=== PATIENT | female | born 1950 | race Caucasian/White ===

== ENCOUNTER 2017-12-15 14:11 | Inpatient (IN) | payer OTHER ==
[~2017-12-15] VITALS: Ht 160 cm; Wt 60.3 kg
--- NOTE | ~2017-12-15 | CON ---
[address] [address] CONSULTATION Name: MICKEY COLLADO Room: [address] IN M.R.#: [id number] Admission: 12/15/17 Attend Phys: Shana Apple MD Discharge: Date of : 52 Report #: [id number] THIS REPORT FOR: //name// CC: Giuliano Apple DATE OF SERVICE: 12/20/2017 ADDENDUM LABORATORY DATA: WBC is 6.6, RBC 5.08, hemoglobin 12.0, hematocrit 37.8, platelets 317. BUN 19, creatinine 0.6, glucose 60. Albumin 2.1. PHYSICAL EXAMINATION: Postoperative wound has increased red granulation with no exposed bone, tendon or joint. The inflammation has nearly resolved with no bucky erythema. She can achieve about -5 degrees right ankle joint extension. She has a large superficial wound to the right anterior ankle with red granulation and stable and healing. No signs of acute vascular embarrassment to either extremity. I did not change the left leg bandage today since I changed it last night and her lesions were dry without inflammation. IMPRESSION: Deep tissue infection, right posterior leg, status post Achilles tendon excision. PLAN: The right leg wounds were cleansed and dressed with Xeroform and covered with ABDs, Kerlix, and Harpal. She was placed in an Aircast boot, weightbearing as tolerated with physical therapy using a walker. The patient to be discharged to [facility] facility, possibly tomorrow. By: 1313 1754Dtrang Zacarias DPM /nt
--- NOTE | ~2017-12-15 | PROC ---
[address] [address] PROCEDURE REPORT Name: MICKEY COLLADO Room: [address] IN M.R.#: [id number] Admission: 12/15/17 Attend Phys: Shana Apple MD Discharge: 12/24/17 Date of : 52 Report #: [id number] THIS REPORT FOR: //name// For GI report, please see the Provation report in Perceptive 7 content. By: 0912Medical Records Staff [place] /CHETNA
--- NOTE | ~2017-12-15 | OP ---
[facility] [address] [place] [address] OPERATIVE REPORT Name: MICKEY COLLADO Room: [address] IN M.R.#: [id number] Admission: 12/15/17 Attend Phys: Shana Apple MD Discharge: Date of : 52 Report #: [id number] THIS REPORT FOR: //name// CC: Giuliano Mcrae DATE OF SERVICE: 12/18/2017 SURGEON: Jv Zacarias DPM. PREOPERATIVE DIAGNOSIS: Deep tissue infection, right posterior leg with infected Achilles tendon. POSTOPERATIVE DIAGNOSIS: Deep tissue infection, right posterior leg with infected Achilles tendon. PROCEDURE: 1. Excision of right Achilles tendon. 2. Incision and drainage, right posterior leg. 3. Wound debridement with irrigation, right leg. ANESTHESIA: General LMA. INJECTABLES: 30 mL of 0.5% bupivacaine plain. HEMOSTASIS: None. SPECIMENS: Right Achilles tendon. CULTURES: Right Achilles tendon, aerobic and anaerobic. ESTIMATED BLOOD LOSS: Roughly 20 mL. COMPLICATIONS: None. DESCRIPTION OF PROCEDURE: The patient was brought to the OR and placed on the table supine with induction of general LMA anesthesia. A local anesthetic block with bupivacaine was given proximal to the surgical site. The extremity was prepped and draped aseptically. The Achilles tendon was then isolated from the underlying soft tissue with Metzenbaum and curved Ana hemostat. An incision was extended distally to calcaneal insertion and proximally to the myotendinous junction. The distal aspect of the Achilles tendon was detached from the calcaneus and the proximal portion attached at the myotendinous junction. A procurement representative portion was sent for aerobic and anaerobic tissue cultures. The remaining tendon was sent for surgical pathology. I debrided the area [address] [address] OPERATIVE REPORT Name: MICKEY COLLADO Room: [address] IN [facility].#: [id number] Admission: 12/15/17 Attend Phys: Shana Apple MD Discharge: Date of : 52 Report #: [id number] thoroughly with a curet, forceps and scissors and used electrocautery for hemostasis. The wound was pulse lavaged with 1.5 liters of sterile saline with 75,000 units of bacitracin. It was dried and the wound was packed with Aquacel Ag. The anterior foot wound was not debrided and it was covered with Xeroform. Both wounds were covered with ABDs, followed by Kerlix and Harpal bandage. The patient left the OR alert and oriented with no complications noted. By: 1040 Carley Zacarias DPM /bella
--- NOTE | ~2017-12-15 | CON ---
[address] [address] CONSULTATION Name: MICKEY COLLADO Room: [address] IN .R.#: [id number] Admission: 12/15/17 Attend Phys: Shana Apple MD Discharge: Date of : 52 Report #: [id number] THIS REPORT FOR: //name// CC: Giuliano Apple DATE OF SERVICE: 12/20/2017 CHIEF COMPLAINT: Status post excision right Achilles tendon for deep tissue infection. SUBJECTIVE: She is doing well, on parenteral vancomycin and ceftriaxone. She has good appetite, stable vitals with no fevers. Surgical culture is growing gram-positive cocci and gram-negative rods. She has low-grade pain to the area, much improved since hospital admission. She had PICC line placed today. ADDENDUM LABORATORY DATA: WBC is 6.6, RBC 5.08, hemoglobin 12.0, hematocrit 37.8, platelets 317. BUN 19, creatinine 0.6, glucose 60. Albumin 2.1. PHYSICAL EXAMINATION: Postoperative wound has increased red granulation with no exposed bone, tendon or joint. The inflammation has nearly resolved with no bucky erythema. She can achieve about -5 degrees right ankle joint extension. She has a large superficial wound to the right anterior ankle with red granulation and stable and healing. No signs of acute vascular embarrassment to either extremity. I did not change the left leg bandage today since I changed it last night and her lesions were dry without inflammation. IMPRESSION: Deep tissue infection, right posterior leg, status post Achilles tendon excision. PLAN: The right leg wounds were cleansed and dressed with Xeroform and covered with ABDs, Kerlix, and Harpal. She was placed in an Aircast boot, weightbearing as tolerated with physical therapy using a walker. The patient to be discharged to custodial facility, possibly tomorrow. By: 1310 1752Dtrang Zacarias DPM /bella
--- NOTE | ~2017-12-15 | CON ---
[address] [address] CONSULTATION Name: MICKEY COLLADO Room: [address] IN M.R.#: [id number] Admission: 12/15/17 Attend Phys: Shana Apple MD Discharge: Date of : 52 Report #: [id number] THIS REPORT FOR: //name// CC: Giuliano Apple DATE OF SERVICE: 12/21/2017 CHIEF COMPLAINT: Status post excision, right Achilles tendon with wound debridement. She is on parenteral vancomycin and ceftriaxone with good tolerance. Surgical tissue cultures grew sensitive Staph aureus and group B streptococcus. She has been afebrile with good appetite, denies chills or malaise. She had physical therapy today. She is able to bear weight on the right foot in an Aircast boot, although she states the boot is uncomfortable at the posterior ankle overlying the surgical site. She had a PICC line placed, likely discharge tomorrow to detention facility. There are no new labs for review. PHYSICAL EXAMINATION: Postoperative site has increased granulation with some pale slough. There is no exposed bone, tendon or joint. There is low grade inflammation with no bucky erythema or cellulitis. No signs of vascular compromise to the extremity. There is no pallor or cyanosis to the wound margins. Negative Homans' or Grant's sign to either extremity. No popliteal adenopathy noted. Both feet are warm to the touch. The left dorsal foot wound is healing over the third MTP joint with no exposed bone, tendon or joint. The remaining left foot and leg wounds have dry scabs without inflammation. IMPRESSION: Status post excision, right Achilles tendon with wound debridement. PLAN: The wounds were cleansed. I debrided the right surgical wound with a curette to remove subcutaneous tissue and slough. Scant bleeding was stopped with pressure. The wound was again cleansed and dressed with Aquacel Ag and covered with ABDs, Kerlix and Harpal wrap. I will write an order to have the patient ambulate in a surgical shoe with walker with physical therapy assistance, if tolerated. I prefer she ambulates in the Aircast boot if pain allows. By: 0751 1618Jv Zacarias DPM /bella
--- NOTE | ~2017-12-15 | CON ---
[address] [address] CONSULTATION Name: MICKEY COLLADO Room: [address] IN .R.#: [id number] Admission: 12/15/17 Attend Phys: Shana Apple MD Discharge: Date of : 52 Report #: [id number] THIS REPORT FOR: //name// CC: Giuliano Apple DATE OF SERVICE: 12/19/2017 CHIEF COMPLAINT: Postoperative day #1 for excision of right Achilles tendon with wound debridement for deep tissue infection. She relates decreased pain, she has good appetite. She has been afebrile with normal vital signs. She is currently nonweightbearing with intact bilateral leg dressings. She is on parenteral vancomycin and ceftriaxone. Surgical cultures showing gram-negative rods and gram-positive cocci in pairs. LABORATORY DATA: WBC 6.9, RBC 4.79, hemoglobin 11.3, hematocrit 35.4, platelets 321, BUN 16, creatinine 0.6, glucose 141, albumin 2.1. PHYSICAL EXAMINATION: Temperature 98.0, pulse 81, respirations 20, blood pressure 105/60. There is a significant decrease in inflammation to both lower extremities, including the right posterior Achilles tendon wound. The posterior leg wound has red granulation with some slough. There is no exposed bone or tendon. The anterior ankle wound has red granulation. The left foot wounds have no inflammation and appear smaller. There is no pallor, cyanosis or signs of acute vascular embarrassment. IMPRESSION: Deep tissue infection, right posterior leg, multiple bilateral lower extremity wounds complicated by type 2 diabetes mellitus with peripheral neuropathy and peripheral artery disease. PLAN: The wounds were cleansed and dried. I placed Xeroform over the right anterior and posterior leg wounds. Foam was placed above that and was wrapped with Kerlix and Harpal wrap. The left foot was dressed with Optifoam over the wounds and Kerlix gauze without an Harpal wrap. I ordered an Aircast boot, which I will fit on the patient tomorrow. Once I feel that the Aircast boot fits appropriately, I will have physical therapy work with her in a weightbearing as tolerated fashion using a walker. By: 1801 0405Jv Zacarias DPM /bella
--- NOTE | ~2017-12-15 | CON ---
[address] [address] CONSULTATION Name: MICKEY COLLADO Room: [address] IN ..#: [id number] Admission: 12/15/17 Attend Phys: Shana Apple MD Discharge: Date of : 52 Report #: [id number] THIS REPORT FOR: //name// CC: Giuliano Whittington DO Shana Apple DATE OF SERVICE: 12/16/2017 REASON FOR CONSULTATION: Bilateral lower extremity ulcerations, complicated by type 2 diabetes mellitus and peripheral arterial disease. HISTORY OF PRESENT ILLNESS: The patient is a 67-year-old female admitted to the hospital yesterday for uncontrolled diabetes and bilateral lower extremity wounds. She states she has not seen a doctor for roughly 40-50 years. She recently saw Dr. Masood Whittington, who referred her for hospital admission. She relates a history of cataract, she states she is legally blind. She was recently diagnosed with type 2 diabetes mellitus and placed on metformin. She relates bilateral lower extremity wounds since 06/2017. She says she scratches and picks them, and they often scab up. She is minimally ambulatory, she ambulates by holding on to a furniture. She receives Meals on Wheels. She relates possible stroke in 09/2014 without formal medical care. She currently relates pain to both legs, particularly the large ulceration of the right posterior ankle. She denies fevers, chills, nausea or malaise. She is on parenteral vancomycin and ceftriaxone with good tolerance. She has had vascular surgery evaluation with recent arterial Doppler and CTA with runoff. The CTA showed widely patent arterial vessels down to the ankles. It is felt that she has adequate arterial perfusion for healing, and no further vascular workup is scheduled at present. She has had carotid Doppler ultrasound and cardio echogram. LABORATORY DATA: WBC 6.8, RBC 5.54, hemoglobin 13.2, hematocrit 41.0, platelets 411. BUN 19, creatinine 0.5, glucose 155. Albumin 2.7. PHYSICAL EXAMINATION: EXTREMITIES: There is a large wound to the right posterior Achilles tendon with exposed tendon. The tendon is desiccated and minimally mobile with limited excursion. The patient has very limited ankle joint dorsiflexion and plantar flexion. There is some granulation to the adjacent sides of the tendon. There is a pale, slough covering the tendon and the adjacent wound. There is a large full-thickness ulceration of the right anterior medial ankle with red granulation and some areas of brown eschar with fibrin necrosis. The granulation is also covered with a layer of pale slough. The left lower extremity has multiple lesions to the leg circumferentially. There is no pallor or cyanosis. Negative popliteal adenopathy. No Homans' or Grant sign to either extremity. Toenails are severely dystrophic without [place] [address] CONSULTATION Name: MICKEY COLLADO Room: [address] IN ..#: [id number] Admission: 12/15/17 Attend Phys: Shana Apple MD Discharge: Date of : 51 Report #: [id number] IMPRESSION: 1. Bilateral lower extremity wounds, right worse than left. 2. Full-thickness ulceration, right posterior Achilles tendon with exposed desiccated tendon. 3. Type 2 diabetes mellitus with poor glycemic control, peripheral arterial disease. PLAN: I reviewed Vascular Surgery's notes and all testing. At this point, I recommend formal surgical debridement of the Achilles tendon in the operating room. The tendon may be salvageable with application of biologic agent, such as a dermal graft with possible use of wound vacuum. Other options include excision of the desiccated tendon, as it is minimally functional at this point. I will evaluate the patient tomorrow and see how much additional range of motion she can achieve with the foot and ankle and assess the viability of the tendon. I performed an aerobic swab culture of the right anterior ankle wound. I will follow up with the patient tomorrow. By: 1835 0735Jv Zacarias DPM /bella
--- NOTE | ~2017-12-15 | CON ---
[address] [address] CONSULTATION Name: MICKEY COLLADO Room: [address] IN M.R.#: [id number] Admission: 12/15/17 Attend Phys: Shana Apple MD Discharge: Date of : 52 Report #: [id number] THIS REPORT FOR: //name// CC: Giuliano Mcrae DATE OF SERVICE: 12/17/2017 CHIEF COMPLAINT: Follow up with deep tissue infection to the right posterior leg with infected and necrotic Achilles tendon. The tendon is nonfunctional, and the patient has very minimal movement in dorsiflexion or plantar flexion. She is on parenteral vancomycin and ceftriaxone. Wound cultures are pending. There are no new labs for review. PHYSICAL EXAMINATION: She has a large wound to the right posterior ankle and lower leg, which have exposed Achilles tendon. The tendon is yellow and infected with malodor and is relatively nonfunctional. The patient has very little ankle joint movement either actively or passively. There is low grade inflammation to the periwound margins, somewhat improved. There is a wound to the anterior aspect of the right ankle with red granulation. There is no pallor or cyanosis or signs of acute vascular embarrassment. IMPRESSION: Deep tissue infection, right lower extremity with necrotic Achilles tendon. PLAN: I recommend excision of the Achilles tendon, since it is nonfunctional and severely necrotic and infected. I will perform this tomorrow in the operating room. By: Gregory: 12/18/17 1042 1839Jv Zacarias DPM /bella
[2017-12-15 15:30] VITALS: BP 129/77
[2017-12-15] MEDS ORDERED: POTASSIUM20 PO (16:08)
[2017-12-15] MEDS ORDERED: METFORMIN HCL500 MG PO (16:08)
[2017-12-15] MEDS ORDERED: FISH OIL 1,001000 M2 PO (16:09)
[2017-12-15 18:15] LABS: HEMATOCRIT 41.5 % (37.0-47.0); HEMOGLOBIN 13.2 gm/dL (12.0-15.0); MCH 23.8 pg (26.0-34.0); MCHC 31.9 g/dL (28.0-37.0); MCV 74.8 fL (80.0-100.0); RBC 5.55 mil/uL (4.20-5.00); RDW-CV 15.6 % (10.5-14.5); WBC 12.3 thou/uL (4.0-11.0)
[2017-12-15 18:37] LABS: ALBUMIN 2.7 g/dL (3.4-5.0); CALCIUM 9.2 mg/dL (8.5-10.1); CREATININE 0.7 mg/dL (0.6-1.3); POTASSIUM 4.6 mmol/L (3.5-5.1); TOTAL BILIRUBIN 0.3 mg/dL (<0.1-1.0); TOTAL PROTEIN 7.9 g/dL (6.4-8.2)
--- NOTE | 2017-12-15 18:53 | NUR ---
ASSUMED CARE OF PT @ 1530.PT IS A/O X4,VSS,TRACING ST ON THE MONITOR.PT STATES LAST BM WAS TODAY.IV INSERTED IN RIGHT AC, PATENT AND SALINE LOCKED.IV ANTIBIOTICS GIVEN.PICTURES TAKEN OF WOUNDS ON LOWER EXTREMITIES.PT IS CALM AND COOPERATIVE WITH NO C/O PAIN AT TIME OF ASSESSMENT.PT IS UP WITH ONE ASSIST TO THE CHAIR OR BSC.PT LEFT RESTING IN BED WITH CALL LIGHT AND FALL PRECAUTIONS IN PLACE. WILL CONTINUE TO MONITOR.HOURLY ROUNDING COMPLETED FOR PT SAFETY.
[2017-12-15 20:29] VITALS: BP 125/85
[2017-12-16] VITALS: BP 140/76
[2017-12-16 04:00] VITALS: BP 158/77
[2017-12-16 04:51] LABS: HEMOGLOBIN 13.2 gm/dL (12.0-15.0); MCH 23.8 pg (26.0-34.0); MCHC 32.1 g/dL (28.0-37.0); MPV 6.8 fl. (7.2-11.1); RBC 5.54 mil/uL (4.20-5.00); RDW-CV 15.4 % (10.5-14.5); WBC 6.8 thou/uL (4.0-11.0)
[2017-12-16 05:17] LABS: CALCIUM 9.3 mg/dL (8.5-10.1); CREATININE 0.5 mg/dL (0.6-1.3); MAGNESIUM 2.1 mg/dL (1.8-2.4); POTASSIUM 4.1 mmol/L (3.5-5.1)
--- NOTE | 2017-12-16 06:55 | NUR ---
PT IS ABLE TO COMMUNICATE HER NEEDS TO STAFF WITH MINOR DIFFICULTY; SHE IS PARTIALLY BLIND. SHE HAS DENIED THE NEED FOR PAIN MEDICATION UP TO THIS TIME. SHE IS TENTATIVELY SCHEDULED TO HAVE A CARDIAC ECHO AND AN ULTRASOUND OF HER LOWER EXTREMITIES LATER TODAY. ITINERANT TEACHER ASSISTANT CONSULTED.
[2017-12-16 08:05] VITALS: BP 107/75
--- NOTE | 2017-12-16 10:34 | NUR ---
RECIEVED REPORT FROM [facility] AND ASSUMED CARE OF PT @ 8231.PT IS A/OX4,VSS,TRACING SR ON THE MONITOR.LUNG SOUNDS ARE CLEAR. LAST BM WAS YESTERDAY.IV PATENT AND SALINE LOCKED.PT IS CALM AND COOPERATIVE WITH NO C/O PAIN AT TIME OF ASSESSMENT.PT IS UP WITH ONE ASSIST TO THE BSC.PT LEFT RESTING IN BED WITH CALL LIGHT AND FALL PRECAUTIONS IN PLACE. WILL CONTINUE TO MONITOR. ECHO AND US COMPLETED THIS AM.
--- NOTE | 2017-12-16 13:01 | NUR ---
WOUND NURSE: PATIENT SEEN TO ADDRESS OPEN LESIONS ON BLE AND LEFT FOOT. LARGE OBLONG LESION ON THE RIGHT MID TIBIAL ASPECT MEASURES 10.5 X 6.0 X 0.2 CM. PRESENTS A SHALLOW LESION CONTAINING PINKISH RED GRANULATION TISSUE AND MODERATE AMOUNT OF SEROUSANGUINOUS DRAINAGE. RIGHT ACHILLES WOUND MEASURES 8.5 X 4.0 X 1.8 CM AND PRESENTS WITH MUSHY PINK NONGRANULATING TISSUE ALONG WITH BLACKENING ALONG THE OUTER SURFACE OF THE EXPOSED ACHILLLES TENDON. THERE IS A MODERATE AMOUNT OF YELLOW DRAINAGE FROM THIS SITE. THERE ARE ALSO A FEW SMALL DRY INTACT SCABS ON THE RLE ALSO. WOUNDS WERE CLEANSED WITH SOAP AND WATER, RINSED WITH WATER, THEN PATTED DRY. APPLIED AQUACEL AG UNDER ABD, THEN WRAPPED WITH KERLEX GAUZE, THEN SECURED WITH TAPE AND LOOSE FITTING SIZE F TUBIGRIP. PATIENT ALSO WITH 3 LESIONS ON THE LEFT FOOT: DISTAL-MEDIAL, DORSAL SURFACE : 2.0 X 1.0 X 0.2 CM; 2ND WOUND OPENING PROXIMAL TO THIS: 2.0 X 1.8 X 0.1 CM. DISTAL LATERAL ASPECT; PRESENTS WITH LIGHT BROWNISH CRUSTS IN THE WOUND BED AND SMALL AMOUNTS OF LIGHT BROWNISH DRAINAGE. PROXIMAL TO 4TH DIGIT: 1.5 X 1.5 X 0.8 CM. PRESENTS WITH PINKISH RED, MUSHY TISSUE IN THE WOUND BED AND EXPOSED TENDON. CLUSTERED WOUNDS ON THE LLE BELOW THE KNEE AND ABOVE THE ANKLE AND MEASURED 25 X 11 CM AND CONTAINED SEVERAL SMALL SHALLOW LESIONS CONTAINING BROWNISH SCABS. OPEN WOUNDS WERE TREATED WITH AQUACEL AG UNDER ABD, XEROFORM GAUZE UNDER ABD APPLIED TO THE REMAINING LESIONS. THEN WRAPPED WITH KERLEX AND SECURED WITH TAPE. APPLIED SIZE F TUBIGRIP TO HELP SECURE DRESSING. PER RADHA INSPECTOR WREATH WITH [facility], PATIENT ALSO HAS CONSULT WITH ORTHO AND PODIATRY. PATIENT WAS INSTRUCTED ON MEASURES TO PROMOTE HEALING AND PREVENT FURTHER COMPLICATIONS AND REINFORCEMENTS WILL BE NEEDED. PATIENT HAS ORDERS FOR WOUND CARE.
--- NOTE | 2017-12-16 14:28 | NUR ---
Nutrition: Pt is seen for wounds. Wounds on bilat legs, wrapped up. Pt stated she is legally blind, but she can feed herself. She has a good appetite currently. Wt: 133#. CHO controlled. diet. Has DM. BG 123, alb 2.7, prealb 19. Pt stated she was trying to get her BG down below 140 after lunch. No nutrition concerns at this time. Mild risk. Recommend MVI to aid in wound healing.
--- NOTE | 2017-12-16 15:02 | 2DMMODE ---
[place] [address] 2 D/M-MODE ECHOCARDIOGRAM Name: MICKEY COLLADO Room: [address] IN [facility]#: [id number] Admission: 12/15/17 Attend Phys: Shana Apple, Discharge: Date of : 52 Date of Service: 12/16/17 1502 Report #: [id number] THIS REPORT FOR: //name// APPROVED REPORT Study performed: 12/16/2017 09:22:49 EXAM: Comprehensive 2D, Doppler, and color-flow Echocardiogram Patient Location: In-Patient Room #: [facility] Status: routine BSA: 1.63 HR: 100 bpm BP: 107/75 mmHg Rhythm: NSR Other Information Study Quality: Good Indications Congestive Heart Failure 2D Dimensions IVSd: 15.47 (7-11mm) LVOT Diam: 19.32 (18-24mm) LVDd: 32.82 mm PWd: 12.12 (7-11mm) Ascending Ao: 34.48 (22-36mm) LVDs: 19.63 (25-40mm) Aortic Root: 34.88 mm Volumes Left Atrial Volume (Systole) LA ESV Index: 28.50 mL/m2 Aortic Valve AoV Peak Nathen.: 1.58 m/s AO Peak Gr.: 10.02 mmHg LVOT Max P.88 mmHg AO Mean Gr.: 5.88 mmHg LVOT Mean P.50 mmHg LVOT Max V: 1.21 m/s AO V2 VTI: 25.35 cm LVOT Mean V: 0.71 m/s WLAT (VTI): 2.15 cm2 LVOT V1 VTI: 18.56 cm Mitral Valve E/A Ratio: 0.55 MV Decel. Time: 219.46 ms MV E Max Nathen.: 0.65 m/[place] [address] 2 D/M-MODE ECHOCARDIOGRAM Name: MICKEY COLLADO Room: [address] IN .R.#: [id number] Admission: 12/15/17 Attend Phys: Shana Apple, Discharge: Date of : 52 Date of Service: 12/16/17 1502 Report #: [id number] MV PHT: 63.64 ms MVA (PHT): 3.46 cm2 TDI E/Lateral E': 8.13 E/Medial E': 8.13 Medial E' Nathen.: 0.08 m/s Lateral E' Nathen.: 0.08 m/s Pulmonary Valve PV Peak Nathen.: 0.94 m/s PV Peak Gr.: 3.54 mmHg Left Ventricle The left ventricle is normal size. There is normal LV segmental wall motion. Mild concentric left ventricular hypertrophy. Left ventricular systolic function is normal. LVEF is >70%. Grade I - abnormal relaxation pattern. Right Ventricle The right ventricle is normal size. The right ventricular systolic function is normal. Atria The left atrium size is normal. The right atrium size is normal. Aortic Valve Mild aortic valve sclerosis. Trace aortic regurgitation. There is no aortic valvular stenosis. Mitral Valve There is mitral annular calcification. There is no mitral valve regurgitation noted. No evidence of mitral valve stenosis. Tricuspid Valve The tricuspid valve is normal in structure. Unable to assess PA pressure. Trace tricuspid regurgitation. Pulmonic Valve The pulmonary valve is normal in structure. There is no pulmonic valvular regurgitation. Great Vessels The aortic root is normal in size. IVC is normal in size and collapses >50% with [place] [address] 2 D/M-MODE ECHOCARDIOGRAM Name: MICKEY COLLADO Room: [address] IN [facility]#: [id number] Admission: 12/15/17 Attend Phys: Shana Apple, Discharge: Date of : 52 Date of Service: 12/16/17 1502 Report #: [id number] There is no pericardial effusion. <Conclusion> The left ventricle is normal size. Mild concentric left ventricular hypertrophy. Left ventricular systolic function is normal. LVEF is >70%. Grade I - abnormal relaxation pattern. Mild aortic valve sclerosis. Trace aortic regurgitation. IVC is normal in size and collapses >50% with inspiration. <ELECTRONICALLY SIGNED> By: Rod Ta MD, FACC 12/16/17 150 01 01 Rod Ta MD, FACC /INF
--- NOTE | 2017-12-16 16:00 | NUR ---
Pt is A&O. Resides at home alone. Pt is legally blind, and states that d/t this she is limited at home. Pt states that she is unable to cook, so she eats sandwiches and has Meals on Wheels delivered. Pt stated that she is able to machine operator picker her home. Friends within her apartment complex provide transportation to run errands and to appointments. Pt has a cane that she uses for mobility. Pt stated that [facility] her to get her [place] YEHU[place], so that she can get inhome services. CM to fax facesheet to Carmen at [facility], to check YEHUDA status v. iniciate a [place] YEHUDA roscoe. No hx of HH or SNF. Discussed disposition with Pt, she will think about SNF v. LTAC over the weekend, CM to f/u on Tuesday. CM received a call from Elzbieta Avila with [facility] p: [phone], c:[phone], [facility] to follow Pt through disposition. Worker to come out and visit early next week. Following
[2017-12-16 16:32] VITALS: BP 111/73
--- NOTE | 2017-12-16 18:08 | NUR ---
VSS,CARDIAC MONITORING IN PLACE WITH NO CHANGES.PT REMAINS ON ROOM AIR.WOUND CARE SAW PT AND WRAPPED BILATERAL LOWER EXTREMITIES.CTA COMPLETED.ECHO COMPLETED.VENOUS DOPPLER US COMPLETED.US OF CAROTIDS COMPLETED. NO C/O PAIN.IV ANTIBIOTICS GIVEN.PT INFORMED OF PLAN OF CARE AND COMMUNICATES UNDERSTANDING.PT WORKED MINIMALLY WITH PT AND OT.HOURLY ROUNDING COMPLETED FOR PT SAFETY.CALL LIGHT AND FALL PRECAUTIONS IN PLACE.WILL CONTINUE TO MONITOR FOR DURATION OF SHIFT.
[2017-12-16 20:00] VITALS: BP 101/56
[2017-12-16 23:10] LABS: GLYCOHEMOGLOBIN (HGB A1C) 10.5 % (4.8-5.6)
[2017-12-17] VITALS: BP 112/54
[2017-12-17 04:00] VITALS: BP 128/59
--- NOTE | 2017-12-17 04:30 | NUR ---
ASSUMED PT CARE AT 1930. ASSESSMENT COMPLETED CHARTED. ABLE TO MAKE NEEDS KNOWN. PT RESTING IN BED ALL NIGHT. C/O PAIN IN HER LEGS BUT IS REFUSING MEDICATION TO HELP. EXPLAINED TO PT THAT THE DEBRIDEMENT IS WHAT IS CAUSING THE INCREASED PAIN. WILL CONTINUE TO MONITOR.
[2017-12-17 07:40] VITALS: BP 113/69
--- NOTE | 2017-12-17 10:29 | NUR ---
RECEIVED REPORT FROM RONEN AND ASSUMED CARE OF PT @ 2377.PT IS A/O X4,VSS,TRACING SR ON THE MONITOR.LUNG SOUNDS ARE CLEAR.LAST BM WAS YESTERDAY.IV PATENT AND SALINE LOCKED.PT IS CALM AND COOPERATIVE WITH C/O PAIN IN BILATERAL LEGS BUT REFUSES PAIN MEDICATIONS.PT IS UP WITH ONE ASSIST TO BSC.PT LEFT RESTING IN BED WITH CALL LIGHT AND FALL PRECAUTIONS IN PLACE. WILL CONTINUE TO MONITOR.
[2017-12-17 12:13] VITALS: BP 129/73
[2017-12-17 16:00] VITALS: BP 113/62
--- NOTE | 2017-12-17 16:51 | NUR ---
VSS,CARDIAC MONITORING IN PLACE WITH NO CHANGES.PT PLANNED TO HAVE SURGERY TOMORROW FOR REMOVAL OF ACHILLES TENDON.CONSENT ON THE CHART BUT NOT SIGNED.HOLD LOVENOX.XRAY OF FOOT AND ANKLE COMPLETED.PT REFUSES PAIN MEDICATION FOR PAIN.IV PATENT AND SALINE LOCKED.IV ANTIBIOTICS GIVEN.PT TO BE NPO AT MIDNIGHT FOR PROCEDURE.PT INFORMED OF PLAN OF CARE AND COMMUNICATES UNDERSTANDING.HOURLY ROUNDING COMPLETED FOR PT SAFETY.CALL LIGHT AND FALL PRECAUTIONS IN PLACE.WILL CONTINUE TO MONITOR FOR DURATION OF SHIFT.
[2017-12-17 20:00] VITALS: BP 111/67
[2017-12-18] VITALS: BP 113/52
--- NOTE | 2017-12-18 03:35 | NUR ---
ASSUMED PT CARE AT 1930. ASSESSMENT COMPLETED CHARTED. PT NPO AT MIDNIGHT FOR SURGERY ON RIGHT ANKLE AND ACHILLIES TENDON. C/O LEG PAIN YET REFUSES PAIN MEDICATION AT THIS TIME. Q2TURN AND TURNS SELF. PT RESTING IN BED COMFORTABLY AT THIS TIME. VSS. WILL CONTINUE TO MONITOR.
[2017-12-18 03:59] VITALS: BP 154/85
[2017-12-18 08:00] VITALS: BP 150/78
[2017-12-18 11:45] VITALS: BP 107/60
[2017-12-18 16:00] VITALS: BP 94/52
--- NOTE | 2017-12-18 18:33 | NUR ---
PATIENT RTESTING IN BED. POST RIGHT ANKLE AND ACHILLIES DEBRIDEMENT TODAY WITH POST OP DRESSING IN PLACE. RIGHT LEG ELEVATED ON PILLOW. VITAL SIGNS STABLE AND PATIENT IN NO APPARENT SIGNS OF DISTRESS. HOURYROUNDING COMPLETD FOR PATIWENT SAFETY.
[2017-12-18 20:00] VITALS: BP 111/54
[2017-12-19 00:27] VITALS: BP 143/90
[2017-12-19 04:00] VITALS: BP 134/76
--- NOTE | 2017-12-19 04:49 | NUR ---
ASSUMED PT CARE AT 193. NURSING ASSESSMENT COMPLETED AT START OF SHIFT. PT C/O PAIN /10 AT START OF SHIFT BUT STATED SHE DID NOT WANT ANTYTHING FOR PAIN. AT 249, PT REQUESTED PAIN MEDICATION FOR BILATERAL LOWER EXTREMITY PAIN. DR. CRUZ NOTIFIED, NEW ORDERS RECEIVED. TORADOL IV ADMINSTERED, PT VOICED INNEFECTIVE, BUT REFUSED ALTERNATIVE PAIN MEDICATIONS. PT EDUCATED, VOICED UNDERSTANDING. PT TRACING SINUS RHYTHM, HOURLY ROUNDING COMPLETED, HIGH FALL PRECAUTIONS IN PLACE. CALL LIGHT WITHIN REACH.
[2017-12-19 08:00] VITALS: BP 127/69
[2017-12-19 11:57] VITALS: BP 109/53
--- NOTE | 2017-12-19 13:59 | NUR ---
CONTINUE TO FOLLOW, MET WITH PT TO DISCUSS DC PLAN. SHE IS AGREEABLE TO SNF AND WANTS TO STAY CLOSE TO HER HOME IN [place]. DISCUSSED OPTIONS IN HER INSURANCE NETWORK AND SHE CHOSE [facility]. CALLED AND FAXED REFERRAL TO [facility]. ALSO TALKED TO PT ABOUT A DPOA, GAVE INFO AND ED. SHE WILL CONSIDER, STATES ALL OF HER FAMILY LIVE OUT OF STATE. WILL FOLLOW
[2017-12-19 15:34] VITALS: BP 105/60
--- NOTE | 2017-12-19 15:45 | NUR ---
WOUND NURSE: PATIENT WAS SEEN BY THIS NURSE LAST WEEK AND WOUND CARE INSTRUCTION PROVIDED. DR. ROMERO PROVIDED SURGICAL DEBRIDEMENT YESTERDAY ON 12/18. ORDERS READ FOR REINFORCEMENT OF DRESSING APPIED BY HIM ONLY. STAFF NURSE CARING FOR PATIENT AWARE.
[2017-12-19 18:30] VITALS: BP 113/62
--- NOTE | 2017-12-19 18:44 | NUR ---
PATIENT TRANSFERRED TO ROOM 316. REPORT CALLED TO 3W NURSE. PATINET BELONGINGS GATHERED AND TAKEN WITH SEVERINO. LOWER EXTREMETY WOUNDS PHOTOGRAPHED AND DRESSINGS CHANGED WITH DR ROMERO. HE HAS ORDERED BOOT FOR RIGHT FOOT THAT HE WILL APPLY TOMORROW WHEN HE PERFORMS ROUNDS ON PATIENT. PATIENT TO BE NON-WEIGHT BEARING UNTIL DR ROMERO APPLIES BOOT TP RIGHT FOOT. HOURLY ROUNDING COMPLETED FOR PATIENT SAFETY.
--- NOTE | 2017-12-19 18:54 | NUR ---
PATIENT TO ROOM 316 THIS EVENING, DSGS C/D/I TO BILAT LE, IV VANC INFUSING VIA L WRIST W/O S/S ADR, A/O X 4, DENIES DISCOMFORT AT THIS TIME, ORIENTED TO ROOM BSC PLACED FOR TOILETING, VSS, NO DISTRESS NOTED.
[2017-12-20 04:00] VITALS: BP 125/104
[2017-12-20 05:00] VITALS: BP 132/68
[2017-12-20 05:34] LABS: HEMATOCRIT 37.8 % (37.0-47.0); MCH 23.6 pg (26.0-34.0); MCHC 31.6 g/dL (28.0-37.0); MCV 74.6 fL (80.0-100.0); MPV 7.2 fl. (7.2-11.1); RBC 5.08 mil/uL (4.20-5.00); RDW-CV 15.6 % (10.5-14.5); WBC 6.6 thou/uL (4.0-11.0)
[2017-12-20 05:59] LABS: ALBUMIN 2.1 g/dL (3.4-5.0); CALCIUM 8.5 mg/dL (8.5-10.1); CREATININE 0.6 mg/dL (0.6-1.3); MAGNESIUM 1.9 mg/dL (1.8-2.4); POTASSIUM 4.1 mmol/L (3.5-5.1); TOTAL BILIRUBIN 0.2 mg/dL (<0.1-1.0); TOTAL PROTEIN 6.3 g/dL (6.4-8.2)
--- NOTE | 2017-12-20 06:55 | NUR ---
PT SLEPT WELL MOST OF THE SHIFT. UP WITH ASSIST TO BSC TO VOID, NWB RLE. DRSG CDI BLE-AWAITING BOOT FROM CS FOR RLE. AM LAB DRAWN. PULLED IV OUT LAST NIGHT AND UNABLE TO RESTART. PT MAY NEED LINE FOR OUTPT IV ABX ON DISCHARGE. ABLE TO USE CALL LITE AND MAKE NEEDS KNOWN. BED ALARM ON FOR SAFETY.
--- NOTE | 2017-12-20 07:36 | CON ---
[address] [address] CONSULTATION Name: MICKEY COLLADO Room: [address] IN .R.#: [id number] Admission: 12/15/17 Attend Phys: Shana Apple MD Discharge: Date of : 52 Report #: [id number] THIS REPORT FOR: //name// CC: Giuliano Apple DATE OF SERVICE: 12/19/2017 INFECTIOUS DISEASE CONSULTATION ATTENDING PHYSICIAN: Dr. Apple. REASON FOR EVALUATION: Suspected deep infection involving the right foot/heel, post debridement. HISTORY OF PRESENT ILLNESS: Chart reviewed, patient examined. This is a 67-year-old who apparently was recently diagnosed with diabetes mellitus, although in all likelihood given parameters going on for an extended period of time, was evaluated for possible cataract surgery and underwent some screening and she was found to have abnormal hyperglycemia, also was noted to have bilateral lower extremity wounds. She denies significant peripheral neuropathy. Apparently, had a posterior right heel wound that was debrided. Gram stain of the specimen has polymicrobial evidence. Cultures are pending. Empirically started on antimicrobial therapy with vancomycin and ceftriaxone. She is not overtly toxic. She notes she has had significant weight loss, although she states her appetite is good. Denies any significant pulmonary or gastrointestinal related complaints. ALLERGIES: PENICILLIN, SULFA. CURRENT MEDICATIONS: Include hydrocodone, fentanyl, enoxaparin, vancomycin, insulin, ceftriaxone, fish oil, metformin, pantoprazole. PAST MEDICAL HISTORY: Diabetes mellitus, cataracts. SOCIAL HISTORY: Nonsmoker, no ethanol. FAMILY HISTORY: Noncontributory. REVIEW OF SYSTEMS: As above. PHYSICAL EXAMINATION: GENERAL: She is pleasant, alert. She has got apparent involuntary movements, primarily of the upper and lower extremity on the left. She attributes to previous stroke. Appears chronically ill, undernourished. VITAL SIGNS: Temperature 97.8, pulse 99, respirations 16, [place] [address] CONSULTATION Name: MICKEY COLLADO Room: [address]#: [id number] Admission: 12/15/17 Attend Phys: Shana Apple MD Discharge: Date of : 52 Report #: [id number] 127/69. SKIN: Warm, dry, no rashes. HEENT: She has poor dentition. NECK: Supple. LUNGS: Diminished breath sounds. HEART: Regular. Borderline tachycardic. I do not appreciate any murmur. ABDOMEN: Soft, nontender, nondistended. There are no peritoneal signs. GENITOURINARY: Deferred. RECTALL: Deferred. EXTREMITIES: Has bilateral lower extremity dressings including compression from the operative site in the distal right lower extremity. LABORATORY DATA: Prealbumin is 16.6. Electrolytes: Sodium 135, potassium 3.8, chloride 101, bicarbonate is 29, BUN and creatinine 16 and 0.6, anion gap of 5. LFTs unremarkable. Albumin of 2.1, total protein of 6.1, estimated GFR of 100. CBC: White count 6.9, H and H and 11.3 and 35.4 and platelets of 321. Operative culture from the right Achilles tendon had no white cells, many Gram-negative rods, many Gram-positive cocci in pairs. The ankle was otherwise unremarkable. Gram stain, cultures to follow. Review of operative port, does have a deep tissue infection involving the right posterior leg and infected Achilles tendon, excision of the right Achilles tendon with drainage and wound debridement. ASSESSMENT: Deep right distal lower extremity infection. We will continue empiric therapy. Await those results. Discussed with Dr. Zacarias whether she will need additional debridement. It is not clear to me. Continue wound care as prescribed. Try to optimize her nutritional status, blood sugar control. Certainly given her overall apparent lack of attention to her health, I think this initially will give an uphill struggle. <ELECTRONICALLY SIGNED> By: Jas Coles MD 12/20/17 0736 [id number] [id number] Coles MD /nt
[2017-12-20 08:00] VITALS: BP 148/65; BP 150/65
--- NOTE | 2017-12-20 13:45 | NUR ---
CONSULTED TO PLACE PICC FOR PT NEEDING BUFFET RUNNER ATB. CONSENT AND ORDER NOTED. SPOKE WITH PT REGUARDING RISK AND BENEFIT. VOICED UNDERSTANDING AND AGREED. TIME OUT WITH WESLEY RN. RIGHT UPPER ARMA SSESSED AND RIGHT UPPER BASILIC IDENTIFIED AND NOTED TO BE WIDLEY PATENT. SINGLE LUMAN POWER PICC PLACED WITH OUT DIFFICULTY PER HOSPITAL POLICY. LINE TRIMMED AT 38CM AND ADVANCED 36CM LEAVING 2CM EXTERNAL. TIP CONFIMED WITH SHERLOCK 3CG. LINE SECURED AND RELEASED FOR USE. PRIMARY NURSING AWARE.
[2017-12-20 16:00] VITALS: BP 120/60; BP 127/61
--- NOTE | 2017-12-20 16:22 | NUR ---
SPOKE WITH [facility]. INFORMED HER OF PT.POSSIBLY NEEDING TO COME THERE ON IVAB ALSO. FAXED HER UPDATED PT/OT NOTES FROM 12/19, PROGRESS NOTES FROM AND ,WOUND NURSE NOTE AND PICC LINE NOTE. NO DETERMINATION YET FOR IVAB.
--- NOTE | 2017-12-20 20:17 | NUR ---
GEO PICC LINE PLACEMENT TO HANNAH, IV ABT INFUSING W/O S/S ADR. WOUNDS REDRESSED AND ASSESSED BY DR. ROMERO AT BEDSIDE, GEO WELL. BLOOD GLUCOSE CONT TO B LOW SIDE OF NORMAL, NO INSULIN GIVEN THIS SHIFT. CAM BOOT TO BEDSIDE, APPROVED BY DR. ROMERO, THERAPIES CONSULTED FOR EVAL/TREAT. ANTICIPATE LTAC TRANSFER DUE TO EXTENSIVENESS OF WOUNDS, LIMITED MOBILITY, BLINDNESS, ADL DEPENDENCY OF PATIENT, UNABLE TO BE ALONE AT THIS TIME. CONT POC.
[2017-12-21] VITALS: BP 135/74
--- NOTE | 2017-12-21 07:11 | NUR ---
HS ACCUCHECK 42, SNACK GIVEN. PT ASYMPTOMATIC WITH LOW BLOOD SUGAR, WILL CONTINUE TO MONITOR. DRSG CDI TO BLE, TOES PINK WARM. HANNAH PICC SL AFTER IV ABX GIVEN. AM LAB DRAWN. UP WITH SBA TO BSC TO VOID, PT STATES SHE CANNOT TOLERATE BOOT BECAUSE IT FEELS TOO TIGHT AND IS PAINFUL. LEGALLY BLIND, ABLE TO USE CALL LITE AND MAKE NEEDS KNOWN.
[2017-12-21 09:33] VITALS: BP 138/81
[2017-12-21 16:07] VITALS: BP 127/88
--- NOTE | 2017-12-21 16:12 | NUR ---
D/C REGISTERED NURSE MIDWIFE CONTACTED SYLWIA WITH [employer] TO DISCUSS MEDICAID PENDING STATUS FOR PATIENT. SYLWIA RETURNS CALL AND INFORMS THAT ' PATIENT DECLINED ASSISTANCE WITH MEDICAID JG AND INFORMS THAT HER FRIEND DIT IT FOR HER'. CM WILL REMAIN AVAILABLE TO ASSIST AND FOLLOW NEEDED.
--- NOTE | 2017-12-21 18:10 | NUR ---
PATIENT HAS BEEN ALERT TODAY. NO COMPLAINTS OF ANY KIND TODAY. BLOOD SUGAR MEDICATIONS CHANGED TODAY TO TRY AND REGULATE BETTER. VITAL SIGNS HAVE BEEN STABLE ON ROOM AIR. PICC LINE IN UPPER RIGHT ARM WORKS WELL FOR ANTIBIOTICS. CALL LIGHT IS IN REACH, WILL CONTINUE TO MONITOR.
[2017-12-22 00:05] VITALS: BP 178/82
--- NOTE | 2017-12-22 05:22 | NUR ---
PT SLEPT FAIRLY WELL OVERNIGHT, UP WITH ASSIST TO BSC TO VOID. HANNAH PICC SL, ABX GIVEN ORDERED. DENIES NEED FOR PAIN MED THIS SHIFT. BLE DRSG CDI. HS ACCUCHECK 69, SNACK GIVEN. NO LABS THIS MORNING. TURN Q2 HOURS AND PRN FOR SKIN CARE AND COMFORT. ABLE TO USE CALL LITE AND MAKE NEEDS KNOWN. POSSIBLE DC TO SNF TODAY. TO HAVE WOUND VAC PLACED FOR DISCHARGE. BED ALARM ON FOR SAFETY.
[2017-12-22 10:00] VITALS: BP 133/84
--- NOTE | 2017-12-22 15:20 | NUR ---
HORACIO followed up with [facility] regarding dc plan and after speaking with Dominique in admissions who clarified need for information to provide to insurance; HORACIO discussed with pt nurse and with wound care nurse and Dr Coles. HORACIO faxed wound care orders and IV abx orders to [facility] admissions. HORACIO called to follow up on status and Dominique said that they provided information to pt insurance and they are awaiting response from insurance on authorization and then they would call to provide update on pt acceptance to SNF once they hear word from insurance. HORACIO already faxed final orders and med list to [facility] ph [phone] and fax [phone]
[2017-12-22 17:51] VITALS: BP 131/65
[2017-12-22 19:50] VITALS: BP 124/42
--- NOTE | 2017-12-23 04:58 | NUR ---
Assumed patient care at 1915. Patient alert and oriented times four. Tic noted to left shoulder, patient states from prev stroke. Patient able to pivot turn to BSC. Wounds to lower extremities are wrapped by surgery. Dressings are C/D/I. PICC patent to IV abt's. No complaints of pain or discomfort noted. Patient is hoping everything is set for her to go home today. assessment rn and hourly rounding completed as documented.
[2017-12-23 09:30] VITALS: BP 143/86
--- NOTE | 2017-12-23 14:44 | NUR ---
WOUND CARE NOTE: ASSESSMENT OF RIGHT AND LEFT LOWER EXTREMITY WOUNDS PERFORMED WITH REHAB MANAGER. RIGHT WALLS: HEALING, NEW EPITHELIUM NOTED TO MEDINA-WOUND. WOUND BED IS MOIST, RED. WOUND MEASURES 7X3X0.2. CLEANSED WITH WOUND CLEANSER, PATTED DRY. APPLIED 4X4. SECURED WITH KERLIX AND TOMAS. RIGHT POSTERIOR, DISTAL LEG: FULL THICKNESS ULCERATION, S/P ID. WOUND MEASURES 16.8X3X0.8. MOIST, RED WOUND BED. DISCOLORATION NOTED TO EDGE OF WOUND AT MOST DISTAL ASPECT OF WOUND, NEAR CALCANEOUS. CLEANSED WITH WOUND CLEANSER, PATTED DRY. APPLIED AQUACEL AG. COVERED WITH 4X4. SECURED WITH KERLIX AND TOMAS. ULCERATIONS TO LEFT FOOT, RED, MOIST. APPLIED AQUACEL AG AND COVERED WITH 4X4. SECURED WITH KERLIX AND TOMAS. RECOMMEND ENCOURAGE GOOD NUTRTION/HYDRATION FOLLOW UP WITH DRS. NELSON AND HEATHER 12/28/17
[2017-12-23 16:00] VITALS: BP 129/94
[2017-12-23 16:37] VITALS: BP 129/94
[2017-12-23 16:41] VITALS: BP 129/94
[2017-12-23] MEDS ORDERED: TYLENOL EXTRA500 MG PO (16:47)
[2017-12-23] MEDS ORDERED: ANCEF 1GM1 GM/50 M2 IV (16:48)
[2017-12-23 16:49] VITALS: BP 129/94
--- NOTE | 2017-12-23 16:49 | NUR ---
D/C LEAD SHAREPOINT DEVELOPER SPOKE TO KALIN WITH [facility] TO INFROM OF THE RERFERRAL FOR SKILLED. KALIN INFORMS THAT THE FACILITY HAS BED AVIALABILITY AND ARE IN-NETWORK WITH THE PATIENT'S INSURANCE. FAXED [facility] SKILLED REFERRAL. KALIN TO CONTACT CM TO INFORM OF ACCEPTANCE OF PATIENT. CM WILL REMAIN AVIALABLE TO ASSIST AND FOLLOW NEEDED.
--- NOTE | 2017-12-23 17:19 | NUR ---
HORACIO follow up with [facility] this morning and spoke with Jose Carlos who expressed concern about accepting pt if pt will be needing a wound vac next week. [facility] called back again and said that they received insurance auth but would not accept pt after all bc of wound care needs. HORACIO sent referral to [facility] who reviewed and denied also due to wound care needs and their acuity at this time with other pts who also have wound care needs. HORACIO sent referral to [facility] and spoke with Tasha who said that pt would have a copay with her insurance now being out of network with [employer]; pt does not have a secondary insurance. HORACIO followed up with Cathy at [facility] after dc systems requirements planner faxed referral to [facility], Cathy open to accepting pt for SNF and trying to receive insurance auth/switch to [facility]. Possible for receiving auth and acceptance on Tuesday; call Cathy at [facility] to finalize ph [phone] or [phone]. The final orders and med list have already been faxed to facility. HORACIO updated pt and pt nurse.
--- NOTE | 2017-12-23 17:59 | NUR ---
PATIENT IS ALERT AND ORIENTED TODAY VERY PLEASANT. UP WITH STAND BY ASSIST TO THE BEDSIDE COMMODE. DRESSING CHANGED TODAY AND PHOTOS TAKEN FOR DISCHARGE TOMORROW, HOPEFULLY. NO COMPLAINTS OF PAIN TODAY, VITAL SIGNS STABLE ON ROOM AIR. CALL LIGHT IS IN REACH, WILL CONTINUE TO MONITOR.
[2017-12-23 21:38] VITALS: BP 138/79
[2017-12-24] VITALS: BP 129/63
[2017-12-24 04:00] VITALS: BP 164/97
--- NOTE | 2017-12-24 05:27 | NUR ---
ALERT AND ORIENTED X4. C/O OF LEG PAIN BUT REFUSED PAIN MEDICATION. TOMAS WRAP DRESSING CLEAN DRY AND INTACT OVER BILATERAL LOWER EXTREMITIES. BILATERAL FEET WARM AND PINK WITH GOOD CAPILLARY REFILL. WEIGHT BEARING TOLERATED RIGHT LOWER EXTREMITY WITH SURGICAL SHOE. UP WITH STAND BY ASSIST TO BEDSIDE COMMODE. CALL LIGHT WITHIN REACH.
[2017-12-24 08:00] VITALS: BP 150/73
--- NOTE | 2017-12-24 10:06 | PATH ---
[facility] [address] [place] [address] PATHOLOGY RPT PROCEDURE Name: MICKEY COLLADO Room: [address] IN ..#: [id number] Admission: 12/15/17 Date of : 52 Discharge: Report #: [id number] Path Case #: [id number] [facility] Accession Number: [id number] . 01 Material submitted: . TISSUE RIGHT ACHILLES TENDON . 01 Clinical history: . Deep tissue infection right Achilles tendon. . 02 Diagnosis: Tissue right Achilles tendon: - Benign synovium and benign tendinous tissue with necrosis and extensive acute inflammation. (MIRELLA:bulmaro; 12/20/2017) QMS/12/20/2017 . 02 Electronically signed: . Jairo Small MD, Pathologist NPI- [id number] . 01 Gross description: . Received in formalin labeled "Mickey Collado, tissue right Achilles tendon" is a 7.4 x 2.6 x 1.0 cm portion of wilson-green discolored rubbery tendon tissue. Mechanical Maintenance sections are submitted in cassette A1. ([facility]; 12/19/2017) SYC/SYC . 02 Pathologist provided ICD-10: M76.61 . 02 CPT . [id number] Specimen Comment: A courtesy copy of this report has been sent to Specimen Comment: [phone], , . Specimen Comment: Report sent to ,DR WANG / DR ROMERO Performed at: [address], [place], [place] [id number] MD Ronald Jansen MD Phone: [phone] Performed at: [facility] [address], [place], [place] [id number] MD Jairo Small MD Phone: [phone]
--- NOTE | 2017-12-24 10:54 | NUR ---
HEARD BACK FROM KALIN/MADIHA. PT HAS BEEN ACCEPTED PENDING INSURANCE AUTH. KALIN IS WORKING ON GETTING THAT TODAY. UPDATED NURSE
[2017-12-24] MEDS ORDERED: CEFAZOLIN 1GM VI1 G1 INJECTION (13:15)
[2017-12-24] MEDS ORDERED: PROTONIX40 M2 PO (13:19)
--- NOTE | 2017-12-24 15:04 | NUR ---
RESUMED CARE THIS AM, VSS, NO DISTRESS NOTED. DISCHARGE ORDERS RECEIVED, PATIENT TO TRANSFER TO [facility] FOR POST-ACUTE REHAB, WOUND CARE, IV ABT ADMINISTRATION. DENIES DISCOMFORT, GEO DSG CHANGE PERFORMED BY DR. ROMERO. WOUND PHOTOS TAKEN 12/23/17, PATIENT REQUESTED THAT DRESSINGS REMAIN INTACT THEY WERE JUST CHANGED. REPORT GIVEN TO RECEIVING NURSE, PERSONAL EFFECTS GATHERED, ACCOUNTED FOR, IN COMPANY OF PATIENT, TRANSPORTED TO MAIN ENTRANCE BY W/C PROTECTIVE SIGNAL OPERATOR IN STABLE CONDITION.
--- NOTE | 2017-12-26 16:46 | NUR ---
CALLED AND LEFT VMCELENA FOR DHSS/ROSENDA BROOKS WITH PT'S DISPOSITION
== END 2017-12-24 14:45 | DRG 854 ==
LOC: M.2W 15:12 → M.3W 12-19 18:50
PROVIDERS: ADMIT Internal Medicine
PROC: 0LBN0ZZ Excision of Right Lower Leg Tendon, Open Approach (ICD-10-PCS; principal; 2017-12-18)
PROC: 05HY33Z Insertion of Infusion Device into Upper Vein, Percutaneous Approach (ICD-10-PCS; 2017-12-20)
DX: A41.9 Sepsis, unspecified organism (principal); E44.0 Moderate protein-calorie malnutrition; I69.354 Hemiplegia and hemiparesis following cerebral infarction affecting left non-dominant side; M86.9 Osteomyelitis, unspecified; E11.69 Type 2 diabetes mellitus with other specified complication; L89.529 Pressure ulcer of left ankle, unspecified stage; L89.519 Pressure ulcer of right ankle, unspecified stage; H54.8 Legal blindness, as defined in USA; E11.51 Type 2 diabetes mellitus with diabetic peripheral angiopathy without gangrene; E11.621 Type 2 diabetes mellitus with foot ulcer; E11.65 Type 2 diabetes mellitus with hyperglycemia; H26.9 Unspecified cataract; L97.519 Non-pressure chronic ulcer of other part of right foot with unspecified severity; E11.42 Type 2 diabetes mellitus with diabetic polyneuropathy; Z87.891 Personal history of nicotine dependence; Z79.4 Long term (current) use of insulin; Z79.84 Long term (current) use of oral hypoglycemic drugs; Z79.899 Other long term (current) drug therapy; Z88.0 Allergy status to penicillin; Z88.2 Allergy status to sulfonamides

== ENCOUNTER → 2017-12-28 | Outpatient (CLI) | payer OTHER ==
[~2017-12-28] MED LIST: ANCEF 1GM1 GM/50 M2 IV; CEFAZOLIN 1GM VI1 G1 INJECTION; FISH OIL 1,001000 M2 PO; METFORMIN HCL500 MG PO; POTASSIUM20 PO; PROTONIX40 M2 PO; TYLENOL EXTRA500 MG PO
--- NOTE | 2017-12-29 15:43 | CON ---
[address] [address] CONSULTATION Name: MICKEY COLLADO Room: [facility].#: [id number] Admission: 12/28/17 Attend Phys: Jv Zacarias DPM Discharge: Date of : 52 Report #: [id number] THIS REPORT FOR: //name// CC: Giuliano Zacarias DATE OF SERVICE: 12/28/2017 INFECTIOUS DISEASE CONSULTATION ATTENDING PHYSICIAN: Jv Zacarias DPM. She is here for followup of deep seated infection involving the right posterior heel with post-resection of the Achilles, had growth of Staphylococcus aureus. Chart reviewed, patient examined and the patient returns in followup. She is in facility. She is receiving parenteral therapy with cefazolin. She is getting it thrice daily. Generally doing well with that. Denies any adverse drug effects. On examination, the wound has a mild degree of necrotic material noted with it. Dr. Zacarias who is present and debriding states it has improved. I have not seen it postop. She does have at least moderate degree of inflammation still. Deep Achilles infection post-resection, we will continue parenteral therapy. Would expect 4-6 week course total. She will utilize some topical therapy to debride and we will see her on a weekly basis at least initially. She is encouraged to optimize her nutritional status. <ELECTRONICALLY SIGNED> By: Jas Coles MD 12/29/17 1543 [id number] 1524Joyariel Coles MD /bella
== END ==
LOC: M.WC 13:30
DX: E11.621 Type 2 diabetes mellitus with foot ulcer (principal); L97.521 Non-pressure chronic ulcer of other part of left foot limited to breakdown of skin; L97.311 Non-pressure chronic ulcer of right ankle limited to breakdown of skin; E11.622 Type 2 diabetes mellitus with other skin ulcer; L97.811 Non-pressure chronic ulcer of other part of right lower leg limited to breakdown of skin; E11.36 Type 2 diabetes mellitus with diabetic cataract; E11.51 Type 2 diabetes mellitus with diabetic peripheral angiopathy without gangrene; I50.9 Heart failure, unspecified; Z87.891 Personal history of nicotine dependence; Z86.73 Personal history of transient ischemic attack (TIA), and cerebral infarction without residual deficits

== ENCOUNTER → 2018-01-04 | Outpatient (CLI) | payer OTHER ==
--- NOTE | 2018-01-05 15:54 | CON ---
[address] [address] CONSULTATION Name: MICKEY COLLADO Room: [facility].#: [id number] Admission: 01/04/18 Attend Phys: Jv Zacarias DPM Discharge: Date of : 52 Report #: [id number] THIS REPORT FOR: //name// CC: Giuliano Zacarias DATE OF SERVICE: 01/04/2018 ATTENDING PHYSICIAN: Dr. Jv Owusu. HISTORY OF PRESENT ILLNESS: She is here for followup of right distal lower extremity chronic ulcerations complicated by deep infection. She is post-Achilles tendon resection with residual posterior heel ulceration and isolation of Gram-positive bacteria. The patient returns today in followup. She is having completed roughly 3 weeks of parenteral therapy. She is in a facility at this point. She denies any significant pain at the moment. She says it is somewhat variable. She has not had systemic illness, no fevers or chills. Appetite has been generally fair. On examination, the wounds appear to be improved. There is some residual exposed tendon over the proximal aspect of the ulcer, posterior Achilles resection site. Otherwise, mild to moderate degree of inflammation at this point. There is no odor, no purulence. Deep infection with post-Achilles resection with residual ulcer. We will continue parenteral therapy. likely completing 4-6 weeks. We will see her back on a weekly basis, need weekly labs as well. She is to optimize her nutritional status. Wound care as per Dr. Zacarias. We will try edema control. <ELECTRONICALLY SIGNED> By: Jas Coles MD 01/05/18 1554 0900 [id number] Coles MD /nt
== END ==
LOC: M.WC 03:12
DX: E11.622 Type 2 diabetes mellitus with other skin ulcer (principal); E11.621 Type 2 diabetes mellitus with foot ulcer; L97.311 Non-pressure chronic ulcer of right ankle limited to breakdown of skin; L97.521 Non-pressure chronic ulcer of other part of left foot limited to breakdown of skin; L97.815 Non-pressure chronic ulcer of other part of right lower leg with muscle involvement without evidence of necrosis; E11.42 Type 2 diabetes mellitus with diabetic polyneuropathy; E11.36 Type 2 diabetes mellitus with diabetic cataract; E11.51 Type 2 diabetes mellitus with diabetic peripheral angiopathy without gangrene; I50.9 Heart failure, unspecified; Z86.73 Personal history of transient ischemic attack (TIA), and cerebral infarction without residual deficits; Z87.891 Personal history of nicotine dependence

== ENCOUNTER → 2018-01-18 | Outpatient (CLI) | payer OTHER | LOC: M.WC 05:06 | DX: E11.622 Type 2 diabetes mellitus with other skin ulcer (principal); L97.311 Non-pressure chronic ulcer of right ankle limited to breakdown of skin; L97.815 Non-pressure chronic ulcer of other part of right lower leg with muscle involvement without evidence of necrosis; L97.821 Non-pressure chronic ulcer of other part of left lower leg limited to breakdown of skin; E11.621 Type 2 diabetes mellitus with foot ulcer; L97.521 Non-pressure chronic ulcer of other part of left foot limited to breakdown of skin; E11.36 Type 2 diabetes mellitus with diabetic cataract; E11.51 Type 2 diabetes mellitus with diabetic peripheral angiopathy without gangrene; E11.42 Type 2 diabetes mellitus with diabetic polyneuropathy; I50.9 Heart failure, unspecified; Z86.73 Personal history of transient ischemic attack (TIA), and cerebral infarction without residual deficits; Z87.891 Personal history of nicotine dependence ==

== ENCOUNTER → 2018-02-01 | Outpatient (CLI) | payer OTHER | LOC: M.WC 01-25 03:23 | DX: E11.621 Type 2 diabetes mellitus with foot ulcer (principal); L97.521 Non-pressure chronic ulcer of other part of left foot limited to breakdown of skin; E11.622 Type 2 diabetes mellitus with other skin ulcer; L97.312 Non-pressure chronic ulcer of right ankle with fat layer exposed; L97.815 Non-pressure chronic ulcer of other part of right lower leg with muscle involvement without evidence of necrosis; L97.821 Non-pressure chronic ulcer of other part of left lower leg limited to breakdown of skin; E11.3551 Type 2 diabetes mellitus with stable proliferative diabetic retinopathy, right eye; E11.42 Type 2 diabetes mellitus with diabetic polyneuropathy; E11.36 Type 2 diabetes mellitus with diabetic cataract; E11.51 Type 2 diabetes mellitus with diabetic peripheral angiopathy without gangrene; I50.9 Heart failure, unspecified; Z86.73 Personal history of transient ischemic attack (TIA), and cerebral infarction without residual deficits; Z87.891 Personal history of nicotine dependence ==

== ENCOUNTER → 2018-02-08 | Outpatient (CLI) | payer OTHER | LOC: M.WC 02:52 | DX: E11.622 Type 2 diabetes mellitus with other skin ulcer (principal); L97.312 Non-pressure chronic ulcer of right ankle with fat layer exposed; E11.621 Type 2 diabetes mellitus with foot ulcer; L97.521 Non-pressure chronic ulcer of other part of left foot limited to breakdown of skin; L97.821 Non-pressure chronic ulcer of other part of left lower leg limited to breakdown of skin; E11.40 Type 2 diabetes mellitus with diabetic neuropathy, unspecified; E11.3551 Type 2 diabetes mellitus with stable proliferative diabetic retinopathy, right eye; E11.36 Type 2 diabetes mellitus with diabetic cataract; E11.51 Type 2 diabetes mellitus with diabetic peripheral angiopathy without gangrene; I50.9 Heart failure, unspecified; Z86.73 Personal history of transient ischemic attack (TIA), and cerebral infarction without residual deficits; Z87.891 Personal history of nicotine dependence ==

== ENCOUNTER → 2018-02-15 | Outpatient (CLI) | payer OTHER, MEDICAID | LOC: M.WC 04:42 | DX: E11.621 Type 2 diabetes mellitus with foot ulcer (principal); L97.521 Non-pressure chronic ulcer of other part of left foot limited to breakdown of skin; E11.622 Type 2 diabetes mellitus with other skin ulcer; L97.821 Non-pressure chronic ulcer of other part of left lower leg limited to breakdown of skin; L97.312 Non-pressure chronic ulcer of right ankle with fat layer exposed; E11.40 Type 2 diabetes mellitus with diabetic neuropathy, unspecified; E11.3551 Type 2 diabetes mellitus with stable proliferative diabetic retinopathy, right eye; E11.36 Type 2 diabetes mellitus with diabetic cataract; E11.51 Type 2 diabetes mellitus with diabetic peripheral angiopathy without gangrene; I50.9 Heart failure, unspecified; Z87.891 Personal history of nicotine dependence; Z86.73 Personal history of transient ischemic attack (TIA), and cerebral infarction without residual deficits ==

== ENCOUNTER 2018-03-07 10:37 | Inpatient (IN) | payer OTHER, MEDICAID ==
[~2018-03-07] VITALS: Ht 152.4 cm; Wt 65.8 kg
--- NOTE | ~2018-03-07 | CON ---
[address] [address] CONSULTATION Name: MICKEY COLLADO Room: [address] IN M.R.#: [id number] Admission: 03/07/18 Attend Phys: Gregory Ahumada Discharge: Date of : 52 Report #: [id number] THIS REPORT FOR: //name// CC: Samantha. Vern Vasquez DATE OF SERVICE: 03/10/2018 CHIEF COMPLAINT: Consultation for bilateral lower extremity ulcerations with cellulitis. HISTORY OF PRESENT ILLNESS: The patient is well known to me with prior surgical debridement to the right posterior Achilles tendon and associated wound. I have been following her as an outpatient at [facility], and she has made significant interval healing. She did miss her last 2 appointments at the wound center, and was admitted to [facility] 2 days ago for recurrent cellulitis. She is currently on parenteral vancomycin and ceftriaxone with good tolerance. She has been afebrile with no constitutional symptoms. The patient is currently sleeping, her both legs are wrapped to below the knees with compression dressings. Blood cultures are negative x 2. LABORATORY DATA: WBC 8.4, RBC 5.04, hemoglobin 12.6, hematocrit 39.2, platelets 279. BUN 15, creatinine 0.5, glucose 158. Albumin 3.1. PHYSICAL EXAMINATION: EXTREMITIES: Both legs are wrapped with compression bandages to below the knees. I did not unwrap the patient's dressing since they were changed yesterday, and she is sleeping. I reviewed the photographs in the chart and discussed with Hanna Galvin, the wound care nurse. I do not recommend surgical debridement, but ongoing wound care, antibiotics and compression wraps. IMPRESSION: Bilateral lower extremity ulcerations with cellulitis complicated by type 2 diabetes mellitus and peripheral neuropathy. PLAN: I will follow the patient during her hospitalization. Continue parenteral antibiotics, topical wound care and compression dressings. By: [id number] Zacarias DPM /bella
[2018-03-07 10:47] VITALS: BP 136/90
[2018-03-07] MEDS ORDERED: VITAMIN D1000 UNI1 PO ×2 (11:03→11:05)
[2018-03-07] MEDS ORDERED: OMEGA-31000 M1 PO (11:04)
[2018-03-07] MEDS ORDERED: PROTONIX 20 MG20 M1 PO (11:05)
[2018-03-07] MEDS ORDERED: SYNTHROID88 MCG PO (11:05)
[2018-03-07] MEDS ORDERED: JANUVIA25 MG PO (11:06)
[2018-03-07] MEDS ORDERED: GABAPENTIN 100100 MG PO (11:06)
[2018-03-07 13:00] LABS: ABSOLUTE EOSINOPHILS 0.1 thou/uL (0.0-0.7); ABSOLUTE LYMPHOCYTES 1.8 thou/uL (0.8-5.3); ABSOLUTE MONOCYTES 0.5 thou/uL (0.0-1.2); ABSOLUTE NEUTROPHILS 6.2 thou/uL (1.6-8.1); BASOPHILS 0.5 %; HEMATOCRIT 43.6 % (37.0-47.0); HEMOGLOBIN 14.1 gm/dL (12.0-15.0); LYMPHOCYTES 20.6 %; MCH 25.1 pg (26.0-34.0); MCHC 32.4 g/dL (28.0-37.0); MCV 77.7 fL (80.0-100.0); MONOCYTES 5.5 %; MPV 7.4 fl. (7.2-11.1); NUCLEATED RBCS 0 /100WBC; PLATELET COUNT* 280 thou/uL (150-400); POLYS 72.4 %; RBC 5.61 mil/uL (4.20-5.00); RDW-CV 17.8 % (10.5-14.5); WBC 8.6 thou/uL (4.0-11.0)
[2018-03-07 13:09] LABS: CREATININE 0.6 mg/dL (0.6-1.3); POTASSIUM 4.1 mmol/L (3.5-5.1)
[2018-03-07 13:14] LABS: ALBUMIN 3.1 g/dL (3.4-5.0); TOTAL BILIRUBIN 0.4 mg/dL (<0.1-1.0); TOTAL PROTEIN 7.5 g/dL (6.4-8.2)
[2018-03-07 16:29] VITALS: BP 117/66
[2018-03-07 16:58] VITALS: BP 141/79
--- NOTE | 2018-03-07 19:46 | NUR ---
PATIENT ADM TO FLOOR, ARRIVED ON UNIT AT 1635, TOOK REPORT FROM CAITIE. A&OX4, ROOM AIR, IV RIGHT AC FLUIDS INFUSSING. LEGALLY BLIND BILATERALLY, PATIENT CAN SEE COLORS BUT THEY ARE BLURRY. C/O PAIN TO BILATERAL LEGS. WOUNDS TO BILATERAL LOWER EXTREMETIES. PICTURES TAKEN AND ALL WOUNDS DRESSED AND WRAPPED. UP WITH ASSISTX1 WITH WALKER. HAS FALLEN WITHIN LAST THREE MONTHS, FALL PRECAUSIONS IN PLACE. ADM ASSESSMENT COMPLETED AND DOCUMENTED. NO OTHER CONCERNS AT THIS TIME. APPROPRIATE AND COOPORATIVE WITH CARE. WILL CONTINUE TO MONITOR.
[2018-03-07 20:00] VITALS: BP 119/65
--- NOTE | 2018-03-08 05:15 | NUR ---
PT SLEPT MOST OF SHIFT. ASSESSMENT DOCUMENTED. MEDS GIVEN PER E-MAR. PT REPORTED PAIN, MAINLY IN HER RIGHT LEG, DR NOTIFIED, ORDERS RECIEVED AND GIVEN PER E-MAR WITH RELIEF. PT PICKING AT DRESSINGS AND WOUNDS THIS SHIFT, PT EDUATED ON LEAVING THE DRESSINGS ALONE. PT UP TO BATHROOM WITH SBA. WILL CONTINUE WITH PLAN OF CARE.
[2018-03-08 07:55] VITALS: BP 96/59
--- NOTE | 2018-03-08 13:30 | NUR ---
SW met with pt to complete initial assessment, introduce self, and SW role. SW familiar with pt due to pt previous admission. Pt lives alone. Pt has a caregiver 3-4 hours a day. Pt is active with [facility]. Pt has hx of SNF at [facility]. Pt has a RW, wc. Pt does not have any stairs at home. Pt is legally blind. Pt has support in her DPOA Alejandra. SW to continue to follow to assist with safe dc planning. SW anticipates being able to return home with HH at dc.
[2018-03-08 14:48] LABS: ABSOLUTE BASOPHILS 0.1 thou/uL (0.0-0.2); ABSOLUTE EOSINOPHILS 0.2 thou/uL (0.0-0.7); ABSOLUTE LYMPHOCYTES 1.7 thou/uL (0.8-5.3); ABSOLUTE MONOCYTES 0.4 thou/uL (0.0-1.2); BASOPHILS 0.8 %; HEMATOCRIT 39.2 % (37.0-47.0); HEMOGLOBIN 12.6 gm/dL (12.0-15.0); LYMPHOCYTES 19.9 %; MCHC 32.1 g/dL (28.0-37.0); MCV 77.9 fL (80.0-100.0); MONOCYTES 5.3 %; MPV 7.4 fl. (7.2-11.1); NUCLEATED RBCS 0 /100WBC; PLATELET COUNT* 279 thou/uL (150-400); RBC 5.04 mil/uL (4.20-5.00); WBC 8.4 thou/uL (4.0-11.0)
[2018-03-08 17:13] VITALS: BP 122/59
--- NOTE | 2018-03-08 18:56 | NUR ---
PATIENT A&OX4, ROOM AIR, IV RIGHT AC FLUIDS INFUSSING. UP WITH STAND BY ASSISTX1 WITH WALKER. NO C/O PIAN/N/V. WOUNDS TO BILATERAL LEGS, DRESSING REDRESSED. NO OTHER CONCERNS AT THIS TIME. APPRORPIATE AND COOPORATIVE WITH CARE. WILL CONTINUE TO MONITOR.
[2018-03-08 19:45] VITALS: BP 141/77
[2018-03-09 04:31] LABS: CALCIUM 8.6 mg/dL (8.5-10.1); CREATININE 0.5 mg/dL (0.6-1.3); POTASSIUM 4.5 mmol/L (3.5-5.1)
--- NOTE | 2018-03-09 06:12 | NUR ---
PT SLEPT MOST OF SHIFT. ASSESSMENT DOCUMENTED. MEDS GIVEN PER E-MAR. IV PATENT, FLUIDS INFUSING. PAIN MEDS GIVEN PER E-MAR WITH RELIEF. PT ASKING ABOUT GETTING PUT BACK ON METFORMIN STATING THAT SHE USED TO TAKE 1000MG BID IN THE PAST. WILL CONTINUE WITH PLAN OF CARE.
--- NOTE | 2018-03-09 08:06 | CON ---
[address] [address] CONSULTATION Name: MICKEY COLLADO Room: [address] IN .R.#: [id number] Admission: 03/07/18 Attend Phys: Gregory Ahumada Discharge: Date of : 52 Report #: [id number] THIS REPORT FOR: //name// CC: Samantha. Vern Vasquez DATE OF SERVICE: 03/07/2018 ATTENDING PHYSICIAN: Dr. Vasquez. REASON FOR EVALUATION: Bilateral lower extremity multiple ulcerations, most concerning stage 3-4 involving the right Achilles, associated pain and apparently purulent drainage. HISTORY OF PRESENT ILLNESS: Chart reviewed, patient examined. This is a 67-year-old woman with diabetes mellitus complicated by severe sequelae. She has some degree of vasculopathy, I suspect small vessel who has [facility]. She has been hospitalized in November as well as 12/2017 for the same and felt to have complicating issues of infection. In spite of aggressive wound care, her wounds have clinically deteriorated. She was admitted for treatment and started on empiric antimicrobial therapy with ceftriaxone. Review of previous cultures showed group B strep, Staph aureus, Prevotella. Surgery evaluation is pending. ALLERGIES: LISTED TO PENICILLIN AND SULFA. CURRENT MEDICATIONS: Include pantoprazole, fish oil, ceftriaxone, levothyroxine, gabapentin, oxycodone, insulin and cholecalciferol. PAST MEDICAL HISTORY: Diabetes mellitus type 2 now insulin requiring and complicated by vasculopathy, has known stroke, has bilateral cataracts, lower extremity ulcers I suspect peripheral vascular arterial disease, multiple wounds and previous tonsillectomy. SOCIAL HISTORY: Nonsmoker and no ethanol. FAMILY HISTORY: Noncontributory. REVIEW OF SYSTEMS: Otherwise unremarkable 10-point review of system with the exception noted in the history of present illness. PHYSICAL EXAMINATION: GENERAL: She is chronically ill, she is pleasant and cooperative. She has got significant visual deficits. She is undernourished. VITAL SIGNS: Temperature 98.5, pulse 84, respirations 18 and blood pressure 96/59. [place] [address] CONSULTATION Name: MICKEY COLLADO Room: [address] IN [facility]#: [id number] Admission: 03/07/18 Attend Phys: Gregory Ahumada Discharge: Date of : 52 Report #: [id number] SKIN: Warm, dry and no rashes. HEENT: She has got poor dentition. Extraocular muscles are intact. NECK: Supple. LUNGS: Diminished breath sounds. Few scattered crackles at the bases. HEART: Regular, occasional ectopy. I do not appreciate any murmur. ABDOMEN: Soft and nontender. There are no peritoneal signs. EXTREMITIES: Lower extremities were evaluated. Multiple wounds, most troubling is the posterior involving the distal insertion of the Achilles, extends several centimeters proximally, stage 3. There is a moderate degree of inflammation noted. There is no fluctuance, no purulence and no odor at this point and several other wounds including the left pretibial site. Overall the evidence of somewhat chronic ischemic appearance dermopathy. There is not a significant amount of swelling. She has reasonable dorsalis pedis pulse and posterior tibial on the right is somewhat diminished. GENITOURINARY: Deferred. RECTAL: Deferred. LABORATORY DATA: CBC: White count of 8.6, H and H 14.1 and 43.6 and platelets of 280. Differential is unremarkable. Electrolytes: Sodium 133, potassium 4.1, chloride 97, bicarbonate 28, anion gap of 8, BUN and creatinine 17 and 0.6 and glucose 346. Alkaline phosphatase of 129, otherwise unremarkable LFTs. Albumin 3.1. Total protein 7.5. Estimated GFR of 100. Lactic acid 1.7. Blood cultures collected on 03/07 roughly 24 hours ago were sterile thus far. ASSESSMENT: Lower extremity wound in the setting of diabetes mellitus, likely has a degree of vasculopathy. There were arterial Dopplers done in November of last year, infrapopliteal segment on the right was monophasic at that point. Repeat studies are pending. We will await surgical evaluation. At this point, reasonable to add vancomycin given the tenuous situation. The patient's wounds are likely multifactorial in etiology. Continue wound care as prescribed and optimize her nutritional status. <ELECTRONICALLY SIGNED> By: Jas Coles MD 03/09/18 0806 [id number] [id number] Coles MD /nt
[2018-03-09 09:05] VITALS: BP 116/61
--- NOTE | 2018-03-09 13:06 | NUR ---
WOUND CARE NOTE: CONSULT RECEIVED FOR CELLULITIS PATIENT PRESENTS WITH NUMEROUS ULCERATIONS TO BILATERAL LOWER EXTREMITIES WITH THE RIGHT BEING WORSE THAN THE LEFT. CLEANSED BOTH LEGS WITH SOAP AND WATER, PATTED DRY. LEFT LEG: PARTIAL THICKNESS WOUNDS TO THE ANTERIOR ASPECT OF HER LEG, ALSO SOME ON THE FOOT. APPLIED XEROFORM GAUZE, COVERED WITH ABD. SECURED WITH KERLIX AND TOMAS. RIGHT LEG: PARTIAL THICKNESS WOUNDS TO THE ANTERIOR ASPECT OF HER LEG, ALSO SOME ON THE FOOT. INFLAMMATION TO MEDINA-WOUND. APPLIED XEROFORM GAUZE, COVERED WITH ABD. PATIENT ALSO HAS A FULL THICKNESS ULCERATION TO HER ACHILLES AREA. PATIENT HAD SURGERY TO THIS AREA IN NOVEMBER. NEW EPITHELIUM NOTED TO SUPERIOR ASPECT OF WOUND. THICKENED TISSUE TO MEDINA-WOUND CALLUS VERSUS DRIED DRAINAGE. WOUND MEASURES 7.4X1.2X1.4 WITH A TUNNEL AT 6 O'CLOCK 0.4CM. WOUND BED IS RED, MOIST, GRANULAR. APPLIED AQUACEL AG AND COVERED WITH ABD. SECURED ALL WITH KERLIX AND TOMAS. EDUCATED PATIENT ON FINDINGS AND ENCOURAGED PATIENT TO KEEP RIGHT HEEL OFF BED. PATIENT ADAMENTLY REFUSES ANY OFFLOADING BOOTS. STATES SHE HAS HAD ONE IN THE PAST AND IT WAS TOO TIGHT AND DIDN'T WORK WELL. ATTEMPTED TO EDUCATE PATIENT THAT WE HAD OTHER OPTIONS, BUT PATIENT WAS UNWILLING TO TRY ANY OTHER BOOT. APPLIED PILLOWS UNDERNEATH PATIENTS LEG AND FOOT TO TRY TO KEEP ACHILLES AREA OFF OF BED. PATIENT WILLING TO TRY THIS FOR OFFLOADING PURPOSES. PATIENT STATES HER APPETITE IS GOOD, HAS NO ISSUES HERE. EDUCATED ON IMPORTANCE OF GOOD NUTRTION FOR HEALING PURPOSES, COMMUNICATED UNDERSTANDING. PATIENT ADMITS TO HAVE MOVED RECENTLY AND HAS BEEN PROPELLING HER SELF IN HER WHEELCHAIR WITH HER FEET. ADMITS THAT THIS MAY HAVE BEEN WHY SHE IS EXPERIENCING DELAYED WOUND HEALING. RECOMMEND TIGHT BLOOD GLUCOSE CONTROL ENCOURAGE GOOD NUTRTION/HYDRATION KEEP RIGHT HEEL OFF BED FOLLOW UP IN WOUND CENTER UPON DISCHARGE DAILY DRESSING CHANGES WHILE ADMITTED
[2018-03-09 16:17] VITALS: BP 111/60
--- NOTE | 2018-03-09 19:45 | NUR ---
PATIENT RESTING IN BED. PATIENT HAS COMPLAITS OF PAIN TO BILATERAL LEGS BUT DENIES NEED FOR MEDICATION. PATIENT SEEN BY WOUND CARE NURSE THIS AFTERNOON. PATIENT IS UP STANDBY ASSIST WITH WALKER. PATIENT HAS GOOD APPETITE. PATIENT DENIES ANY NEEDS AT THIS TIME. CALL LIGHT WITHIN REACH. WILL CONTINUE TO MONITOR.
[2018-03-09 20:15] VITALS: BP 151/61
--- NOTE | 2018-03-10 05:47 | NUR ---
PT SLEPT MOST OF SHIFT. ASSESSMENT DOCUMENTED. MEDS GIVEN PER E-MAR. IV PATENT, FLUIDS INFUSING. PAIN MEDS GIVEN PER E-MAR WITH RELIEF. PT UP TO BATHROOM WITH SBA. WILL CONTINUE WITH PLAN OF CARE.
[2018-03-10 08:00] VITALS: BP 155/60
[2018-03-10 15:12] VITALS: BP 155/60
[2018-03-10 15:25] VITALS: BP 155/60
--- NOTE | 2018-03-10 15:26 | NUR ---
Pt to dc home alone today with caregiver services 3 to 4 hrs a day. Pt is active with [facility] and SW faxed referral info with resumption of care orders to [facility] at [phone] fax [phone].
[2018-03-10] MEDS ORDERED: MINOCIN50 MG PO (15:55)
--- NOTE | 2018-03-10 17:42 | NUR ---
PT AWAITING CAB RIDE HOME. WILL CONTINUE TO MONITOR.
== END 2018-03-10 20:04 | disposition home health service (06) | DRG 602 ==
LOC: M.ERS 10:37 → M.3W 13:45 → M.TBA-ER 13:45 → M.3W 16:38
PROVIDERS: Physician Assistant; ADMIT Internal Medicine
DX: L03.115 Cellulitis of right lower limb (principal); L89.894 Pressure ulcer of other site, stage 4; M31.9 Necrotizing vasculopathy, unspecified; L03.116 Cellulitis of left lower limb; E11.42 Type 2 diabetes mellitus with diabetic polyneuropathy; E11.65 Type 2 diabetes mellitus with hyperglycemia; H54.8 Legal blindness, as defined in USA; I65.21 Occlusion and stenosis of right carotid artery; G25.81 Restless legs syndrome; Z88.0 Allergy status to penicillin; Z88.2 Allergy status to sulfonamides; Z86.73 Personal history of transient ischemic attack (TIA), and cerebral infarction without residual deficits; Z98.42 Cataract extraction status, left eye; Z98.41 Cataract extraction status, right eye; Z91.040 Latex allergy status; Z82.49 Family history of ischemic heart disease and other diseases of the circulatory system; Z79.899 Other long term (current) drug therapy

== ENCOUNTER 2018-03-16 16:32 | Emergency (ER) | payer OTHER, MEDICAID ==
[~2018-03-16] VITALS: Ht 160 cm; Wt 70.8 kg
[~2018-03-16 16:32] MED LIST changes: +GABAPENTIN 100100 MG PO; +JANUVIA25 MG PO; +MINOCIN50 MG PO; +OMEGA-31000 M1 PO; +PROTONIX 20 MG20 M1 PO; +SYNTHROID88 MCG PO; +VITAMIN D1000 UNI1 PO
[2018-03-16] MEDS ORDERED: GLUCOPHAGE XR500 MG PO (16:48)
[2018-03-16 17:37] VITALS: BP 134/80
== END 2018-03-16 17:38 | disposition home or self-care (01) ==
LOC: M.ERS 16:32
DX: Z48.00 Encounter for change or removal of nonsurgical wound dressing (principal); E11.622 Type 2 diabetes mellitus with other skin ulcer; L97.818 Non-pressure chronic ulcer of other part of right lower leg with other specified severity; L97.828 Non-pressure chronic ulcer of other part of left lower leg with other specified severity; Z91.040 Latex allergy status; Z88.2 Allergy status to sulfonamides; Z88.0 Allergy status to penicillin; Z86.73 Personal history of transient ischemic attack (TIA), and cerebral infarction without residual deficits

== ENCOUNTER → 2018-03-20 | Outpatient (CLI) | payer OTHER, MEDICAID ==
[~2018-03-20] MED LIST changes: +GLUCOPHAGE XR500 MG PO
== END ==
LOC: M.WC 03-08 14:00
DX: E11.622 Type 2 diabetes mellitus with other skin ulcer (principal); L97.311 Non-pressure chronic ulcer of right ankle limited to breakdown of skin; L97.822 Non-pressure chronic ulcer of other part of left lower leg with fat layer exposed; L97.811 Non-pressure chronic ulcer of other part of right lower leg limited to breakdown of skin; E11.621 Type 2 diabetes mellitus with foot ulcer; L97.521 Non-pressure chronic ulcer of other part of left foot limited to breakdown of skin; L97.512 Non-pressure chronic ulcer of other part of right foot with fat layer exposed; E11.40 Type 2 diabetes mellitus with diabetic neuropathy, unspecified; E11.36 Type 2 diabetes mellitus with diabetic cataract; E11.51 Type 2 diabetes mellitus with diabetic peripheral angiopathy without gangrene; I50.9 Heart failure, unspecified; Z87.891 Personal history of nicotine dependence; Z86.73 Personal history of transient ischemic attack (TIA), and cerebral infarction without residual deficits

== ENCOUNTER → 2018-03-29 | Outpatient (CLI) | payer OTHER, MEDICAID | LOC: M.WC 03:59 | DX: E11.622 Type 2 diabetes mellitus with other skin ulcer (principal); L97.315 Non-pressure chronic ulcer of right ankle with muscle involvement without evidence of necrosis; L97.821 Non-pressure chronic ulcer of other part of left lower leg limited to breakdown of skin; L97.811 Non-pressure chronic ulcer of other part of right lower leg limited to breakdown of skin; E11.621 Type 2 diabetes mellitus with foot ulcer; L97.521 Non-pressure chronic ulcer of other part of left foot limited to breakdown of skin; L97.512 Non-pressure chronic ulcer of other part of right foot with fat layer exposed; E11.40 Type 2 diabetes mellitus with diabetic neuropathy, unspecified; E11.3551 Type 2 diabetes mellitus with stable proliferative diabetic retinopathy, right eye; E11.36 Type 2 diabetes mellitus with diabetic cataract; E11.51 Type 2 diabetes mellitus with diabetic peripheral angiopathy without gangrene; I50.9 Heart failure, unspecified; Z87.891 Personal history of nicotine dependence; Z86.73 Personal history of transient ischemic attack (TIA), and cerebral infarction without residual deficits ==

== ENCOUNTER → 2018-04-05 | Outpatient (CLI) | payer OTHER, MEDICAID | LOC: M.WC 05:18 | DX: E11.622 Type 2 diabetes mellitus with other skin ulcer (principal); L97.312 Non-pressure chronic ulcer of right ankle with fat layer exposed; L97.821 Non-pressure chronic ulcer of other part of left lower leg limited to breakdown of skin; E11.621 Type 2 diabetes mellitus with foot ulcer; L97.521 Non-pressure chronic ulcer of other part of left foot limited to breakdown of skin; L97.512 Non-pressure chronic ulcer of other part of right foot with fat layer exposed; E11.40 Type 2 diabetes mellitus with diabetic neuropathy, unspecified; E11.3551 Type 2 diabetes mellitus with stable proliferative diabetic retinopathy, right eye; E11.36 Type 2 diabetes mellitus with diabetic cataract; E11.51 Type 2 diabetes mellitus with diabetic peripheral angiopathy without gangrene; I50.9 Heart failure, unspecified; Z86.73 Personal history of transient ischemic attack (TIA), and cerebral infarction without residual deficits; Z87.891 Personal history of nicotine dependence ==

== ENCOUNTER → 2018-04-12 | Outpatient (CLI) | payer OTHER, MEDICAID | LOC: M.WC 04:56 | DX: E11.622 Type 2 diabetes mellitus with other skin ulcer (principal); L97.315 Non-pressure chronic ulcer of right ankle with muscle involvement without evidence of necrosis; L97.811 Non-pressure chronic ulcer of other part of right lower leg limited to breakdown of skin; E11.621 Type 2 diabetes mellitus with foot ulcer; L97.521 Non-pressure chronic ulcer of other part of left foot limited to breakdown of skin; L97.511 Non-pressure chronic ulcer of other part of right foot limited to breakdown of skin; E11.36 Type 2 diabetes mellitus with diabetic cataract; E11.51 Type 2 diabetes mellitus with diabetic peripheral angiopathy without gangrene; E11.40 Type 2 diabetes mellitus with diabetic neuropathy, unspecified; E11.3551 Type 2 diabetes mellitus with stable proliferative diabetic retinopathy, right eye; I50.9 Heart failure, unspecified; Z87.891 Personal history of nicotine dependence; Z86.73 Personal history of transient ischemic attack (TIA), and cerebral infarction without residual deficits ==

== ENCOUNTER → 2018-05-03 | Outpatient (CLI) | payer OTHER, MEDICAID | LOC: M.WC 04-26 09:00 | DX: E11.622 Type 2 diabetes mellitus with other skin ulcer (principal); L97.312 Non-pressure chronic ulcer of right ankle with fat layer exposed; L97.811 Non-pressure chronic ulcer of other part of right lower leg limited to breakdown of skin; E11.621 Type 2 diabetes mellitus with foot ulcer; L97.511 Non-pressure chronic ulcer of other part of right foot limited to breakdown of skin; L97.521 Non-pressure chronic ulcer of other part of left foot limited to breakdown of skin; E11.36 Type 2 diabetes mellitus with diabetic cataract; E11.51 Type 2 diabetes mellitus with diabetic peripheral angiopathy without gangrene; E11.40 Type 2 diabetes mellitus with diabetic neuropathy, unspecified; I50.9 Heart failure, unspecified; Z87.891 Personal history of nicotine dependence; Z86.73 Personal history of transient ischemic attack (TIA), and cerebral infarction without residual deficits ==

== ENCOUNTER → 2018-05-10 | Outpatient (CLI) | payer OTHER, MEDICAID | LOC: M.WC 05:31 | DX: E11.622 Type 2 diabetes mellitus with other skin ulcer (principal); L97.315 Non-pressure chronic ulcer of right ankle with muscle involvement without evidence of necrosis; L97.811 Non-pressure chronic ulcer of other part of right lower leg limited to breakdown of skin; E11.621 Type 2 diabetes mellitus with foot ulcer; L97.521 Non-pressure chronic ulcer of other part of left foot limited to breakdown of skin; L97.511 Non-pressure chronic ulcer of other part of right foot limited to breakdown of skin; E11.36 Type 2 diabetes mellitus with diabetic cataract; E11.51 Type 2 diabetes mellitus with diabetic peripheral angiopathy without gangrene; E11.40 Type 2 diabetes mellitus with diabetic neuropathy, unspecified; E11.3551 Type 2 diabetes mellitus with stable proliferative diabetic retinopathy, right eye; I87.2 Venous insufficiency (chronic) (peripheral); I50.9 Heart failure, unspecified; Z86.73 Personal history of transient ischemic attack (TIA), and cerebral infarction without residual deficits; Z87.891 Personal history of nicotine dependence ==

== ENCOUNTER → 2018-05-17 | Outpatient (CLI) | payer OTHER, MEDICAID | LOC: M.WC 09:33 | DX: E11.622 Type 2 diabetes mellitus with other skin ulcer (principal); L97.312 Non-pressure chronic ulcer of right ankle with fat layer exposed; L97.811 Non-pressure chronic ulcer of other part of right lower leg limited to breakdown of skin; E11.621 Type 2 diabetes mellitus with foot ulcer; L97.521 Non-pressure chronic ulcer of other part of left foot limited to breakdown of skin; L97.511 Non-pressure chronic ulcer of other part of right foot limited to breakdown of skin; E11.3551 Type 2 diabetes mellitus with stable proliferative diabetic retinopathy, right eye; E11.40 Type 2 diabetes mellitus with diabetic neuropathy, unspecified; E11.36 Type 2 diabetes mellitus with diabetic cataract; E11.51 Type 2 diabetes mellitus with diabetic peripheral angiopathy without gangrene; I50.9 Heart failure, unspecified; I87.2 Venous insufficiency (chronic) (peripheral); Z87.891 Personal history of nicotine dependence; Z86.73 Personal history of transient ischemic attack (TIA), and cerebral infarction without residual deficits ==

== ENCOUNTER → 2018-05-24 | Outpatient (CLI) | payer OTHER, MEDICAID | LOC: M.WC 04:16 | DX: E11.622 Type 2 diabetes mellitus with other skin ulcer (principal); L97.315 Non-pressure chronic ulcer of right ankle with muscle involvement without evidence of necrosis; L97.821 Non-pressure chronic ulcer of other part of left lower leg limited to breakdown of skin; L97.811 Non-pressure chronic ulcer of other part of right lower leg limited to breakdown of skin; E11.621 Type 2 diabetes mellitus with foot ulcer; L97.521 Non-pressure chronic ulcer of other part of left foot limited to breakdown of skin; E11.36 Type 2 diabetes mellitus with diabetic cataract; E11.51 Type 2 diabetes mellitus with diabetic peripheral angiopathy without gangrene; E11.40 Type 2 diabetes mellitus with diabetic neuropathy, unspecified; E11.3551 Type 2 diabetes mellitus with stable proliferative diabetic retinopathy, right eye; I50.9 Heart failure, unspecified; Z87.891 Personal history of nicotine dependence; Z86.73 Personal history of transient ischemic attack (TIA), and cerebral infarction without residual deficits ==

== ENCOUNTER → 2018-05-31 | Outpatient (CLI) | payer OTHER, MEDICAID | LOC: M.WC 05:41 | DX: E11.622 Type 2 diabetes mellitus with other skin ulcer (principal); L97.811 Non-pressure chronic ulcer of other part of right lower leg limited to breakdown of skin; L97.821 Non-pressure chronic ulcer of other part of left lower leg limited to breakdown of skin; E11.36 Type 2 diabetes mellitus with diabetic cataract; E11.51 Type 2 diabetes mellitus with diabetic peripheral angiopathy without gangrene; E11.40 Type 2 diabetes mellitus with diabetic neuropathy, unspecified; E11.3551 Type 2 diabetes mellitus with stable proliferative diabetic retinopathy, right eye; I50.9 Heart failure, unspecified; Z87.891 Personal history of nicotine dependence; Z86.73 Personal history of transient ischemic attack (TIA), and cerebral infarction without residual deficits ==

== ENCOUNTER → 2018-06-07 | Outpatient (CLI) | payer OTHER, MEDICAID | LOC: M.WC 04:54 | DX: E11.622 Type 2 diabetes mellitus with other skin ulcer (principal); L97.811 Non-pressure chronic ulcer of other part of right lower leg limited to breakdown of skin; L97.821 Non-pressure chronic ulcer of other part of left lower leg limited to breakdown of skin; L89.893 Pressure ulcer of other site, stage 3; E11.3551 Type 2 diabetes mellitus with stable proliferative diabetic retinopathy, right eye; E11.40 Type 2 diabetes mellitus with diabetic neuropathy, unspecified; E11.36 Type 2 diabetes mellitus with diabetic cataract; E11.51 Type 2 diabetes mellitus with diabetic peripheral angiopathy without gangrene; I50.9 Heart failure, unspecified; Z87.891 Personal history of nicotine dependence; Z86.73 Personal history of transient ischemic attack (TIA), and cerebral infarction without residual deficits ==

== ENCOUNTER → 2018-06-21 | Outpatient (CLI) | payer OTHER, MEDICAID | LOC: M.WC 05:07 | DX: E11.622 Type 2 diabetes mellitus with other skin ulcer (principal); L97.828 Non-pressure chronic ulcer of other part of left lower leg with other specified severity; L97.818 Non-pressure chronic ulcer of other part of right lower leg with other specified severity; E11.40 Type 2 diabetes mellitus with diabetic neuropathy, unspecified; E11.3551 Type 2 diabetes mellitus with stable proliferative diabetic retinopathy, right eye; E11.36 Type 2 diabetes mellitus with diabetic cataract; E11.51 Type 2 diabetes mellitus with diabetic peripheral angiopathy without gangrene; I50.9 Heart failure, unspecified; Z87.891 Personal history of nicotine dependence; Z86.73 Personal history of transient ischemic attack (TIA), and cerebral infarction without residual deficits ==

== ENCOUNTER → 2018-06-28 | Outpatient (CLI) | payer OTHER, MEDICAID | LOC: M.WC 05:05 | DX: E11.622 Type 2 diabetes mellitus with other skin ulcer (principal); L97.811 Non-pressure chronic ulcer of other part of right lower leg limited to breakdown of skin; L97.821 Non-pressure chronic ulcer of other part of left lower leg limited to breakdown of skin; E11.36 Type 2 diabetes mellitus with diabetic cataract; E11.51 Type 2 diabetes mellitus with diabetic peripheral angiopathy without gangrene; E11.42 Type 2 diabetes mellitus with diabetic polyneuropathy; I50.9 Heart failure, unspecified; I87.2 Venous insufficiency (chronic) (peripheral); Z87.891 Personal history of nicotine dependence; Z86.73 Personal history of transient ischemic attack (TIA), and cerebral infarction without residual deficits ==

== ENCOUNTER → 2018-07-05 | Outpatient (CLI) | payer OTHER, MEDICAID | LOC: M.WC 04:34 | DX: E11.622 Type 2 diabetes mellitus with other skin ulcer (principal); L97.811 Non-pressure chronic ulcer of other part of right lower leg limited to breakdown of skin; L97.821 Non-pressure chronic ulcer of other part of left lower leg limited to breakdown of skin; L89.892 Pressure ulcer of other site, stage 2; E11.42 Type 2 diabetes mellitus with diabetic polyneuropathy; E11.36 Type 2 diabetes mellitus with diabetic cataract; E11.51 Type 2 diabetes mellitus with diabetic peripheral angiopathy without gangrene; I50.9 Heart failure, unspecified; I87.2 Venous insufficiency (chronic) (peripheral); Z87.891 Personal history of nicotine dependence; Z86.73 Personal history of transient ischemic attack (TIA), and cerebral infarction without residual deficits ==

== ENCOUNTER → 2018-07-12 | Outpatient (CLI) | payer OTHER, MEDICAID | LOC: M.WC 05:20 | DX: E11.622 Type 2 diabetes mellitus with other skin ulcer (principal); L97.811 Non-pressure chronic ulcer of other part of right lower leg limited to breakdown of skin; L97.821 Non-pressure chronic ulcer of other part of left lower leg limited to breakdown of skin; L89.892 Pressure ulcer of other site, stage 2; E11.36 Type 2 diabetes mellitus with diabetic cataract; E11.51 Type 2 diabetes mellitus with diabetic peripheral angiopathy without gangrene; I50.9 Heart failure, unspecified; E11.42 Type 2 diabetes mellitus with diabetic polyneuropathy; I87.2 Venous insufficiency (chronic) (peripheral); Z87.891 Personal history of nicotine dependence; Z86.73 Personal history of transient ischemic attack (TIA), and cerebral infarction without residual deficits ==

== ENCOUNTER → 2018-07-26 | Outpatient (CLI) | payer OTHER, MEDICAID | LOC: M.WC 07-19 08:03 | DX: E11.622 Type 2 diabetes mellitus with other skin ulcer (principal); L97.811 Non-pressure chronic ulcer of other part of right lower leg limited to breakdown of skin; L97.821 Non-pressure chronic ulcer of other part of left lower leg limited to breakdown of skin; L89.892 Pressure ulcer of other site, stage 2; E11.42 Type 2 diabetes mellitus with diabetic polyneuropathy; E11.36 Type 2 diabetes mellitus with diabetic cataract; E11.51 Type 2 diabetes mellitus with diabetic peripheral angiopathy without gangrene; I87.2 Venous insufficiency (chronic) (peripheral); I50.9 Heart failure, unspecified; Z87.891 Personal history of nicotine dependence; Z86.73 Personal history of transient ischemic attack (TIA), and cerebral infarction without residual deficits ==

== ENCOUNTER → 2018-08-02 | Outpatient (CLI) | payer OTHER, MEDICAID | LOC: M.WC 05:08 | DX: E11.622 Type 2 diabetes mellitus with other skin ulcer (principal); L97.312 Non-pressure chronic ulcer of right ankle with fat layer exposed; I87.2 Venous insufficiency (chronic) (peripheral); E11.40 Type 2 diabetes mellitus with diabetic neuropathy, unspecified; E11.36 Type 2 diabetes mellitus with diabetic cataract; E11.51 Type 2 diabetes mellitus with diabetic peripheral angiopathy without gangrene; I50.9 Heart failure, unspecified; Z87.891 Personal history of nicotine dependence; Z86.73 Personal history of transient ischemic attack (TIA), and cerebral infarction without residual deficits ==

== ENCOUNTER → 2018-08-09 | Outpatient (CLI) | payer OTHER, MEDICAID | LOC: M.WC 05:10 | DX: E11.622 Type 2 diabetes mellitus with other skin ulcer (principal); L97.311 Non-pressure chronic ulcer of right ankle limited to breakdown of skin; E11.42 Type 2 diabetes mellitus with diabetic polyneuropathy; E11.36 Type 2 diabetes mellitus with diabetic cataract; E11.51 Type 2 diabetes mellitus with diabetic peripheral angiopathy without gangrene; I50.9 Heart failure, unspecified; I87.2 Venous insufficiency (chronic) (peripheral); Z87.891 Personal history of nicotine dependence; Z86.73 Personal history of transient ischemic attack (TIA), and cerebral infarction without residual deficits ==

== ENCOUNTER 2018-08-23 10:31 | Inpatient (IN) | payer OTHER, MEDICAID ==
[~2018-08-23] VITALS: Ht 160 cm; Wt 73.9 kg
[2018-08-23 10:40] VITALS: BP 189/97
[2018-08-23 12:34] LABS: ABSOLUTE BASOPHILS 0.1 thou/uL (0.0-0.2); ABSOLUTE EOSINOPHILS 0.2 thou/uL (0.0-0.7); ABSOLUTE LYMPHOCYTES 1.9 thou/uL (0.8-5.3); ABSOLUTE MONOCYTES 0.6 thou/uL (0.0-1.2); ABSOLUTE NEUTROPHILS 5.8 thou/uL (1.6-8.1); BASOPHILS 0.7 %; EOSINOPHILS 1.9 %; HEMATOCRIT 39.4 % (37.0-47.0); HEMOGLOBIN 13.2 gm/dL (12.0-15.0); LYMPHOCYTES 21.9 %; MCH 27.5 pg (26.0-34.0); MCHC 33.5 g/dL (28.0-37.0); MCV 82.1 fL (80.0-100.0); MONOCYTES 7.5 %; MPV 7.3 fl. (7.2-11.1); NUCLEATED RBCS 0 /100WBC; PLATELET COUNT* 250 thou/uL (150-400); RDW-CV 13.6 % (10.5-14.5); WBC 8.5 thou/uL (4.0-11.0)
[2018-08-23 12:42] LABS: ANION GAP 1 mmol/L (7-16); BUN 19 mg/dL (7-18); CALCIUM 9.4 mg/dL (8.5-10.1); CHLORIDE 105 mmol/L (98-107); CO2 34 mmol/L (21-32); CREATININE 0.5 mg/dL (0.6-1.3); GLUCOSE 163 mg/dL (70-99); POTASSIUM 4.2 mmol/L (3.5-5.1); SODIUM 140 mmol/L (136-145)
[2018-08-23 12:52] LABS: ALBUMIN 3.1 g/dL (3.4-5.0); ALKALINE PHOSPHATASE 98 U/L (46-116); SGOT 10 U/L (15-37); SGPT 19 U/L (30-65); TOTAL BILIRUBIN 0.4 mg/dL (<0.1-1.0); TOTAL PROTEIN 7.1 g/dL (6.4-8.2); TROPONIN-I LEVEL <0.06 ng/mL (<0.06)
--- NOTE | 2018-08-23 14:17 | NUR ---
RIGHT UPPER ARM AND LEFT UPPER ARM ASSESSED FOR PICC LINE INSERTION. PRIOR ATTEMPTS OF IV CANNULATION NOTED OF BILATERAL UPPER ARMS. RIGHT BASILIC VESSEL ACCESSED FOR DUAL LUMEN PICC. LINE PRE-TRIMMED TO 37 CM BUT UNABLE TO ADVANCE CATHETER PAST THE AXILLA. SEVERAL ATTEMPTS MADE TO PASS CATHETER BUT RESISTANCE MET AT THE AXILLA. LINE REMOVED, PRESSURE HELD FOR [address] PEDERSEN GIVEN REPORT, RIGHT FOREARM PERIPHERAL IV INSERTED WITH ULTRASOUND. GOOD BRISK BLOOD RETURN NOTED, LINE FLUSHES WITH EASE AND NO INFILTATION OBSERVED.
[2018-08-23 16:59] VITALS: BP 188/91
[2018-08-23 17:18] VITALS: BP 178/96
--- NOTE | 2018-08-23 17:31 | NUR ---
PT ADMITTED TO UNIT WITH CELLULITIS AND NONHEALING LOWER EXTREMITY ULCERS. PT ALERT AND ORIENTED. PT ON ROOM AIR. CARB CONTORL DIET. PULSES 2+ IN ALL EXTREMITIES. BP HIGH, REFUSED BP MEDS. RT FA IV WITH NS AT 70. WILL HAVE PICC REATTEMPTED BY INFUSION IN A COUPLE OF DAYS. MULTIPLE WOUNDS TO LEFT AND RIGHT LOWER EXTREMITIES. PICTURE TAKEN. ACCU CHECK. PT IS BLIND. ORIENTED PT TO ENVIRONMENT. PT NOTIFED NEED ASSISTANCE GETTING UP. GAVE VERBAL UNDERSTANDING. FALL RISK PRECAUTIONS IN PLACE. HOURLY ROUNDING COMPLETED. WILL CONTINUE TO MONITOR.
[2018-08-23 21:15] VITALS: BP 184/107
[2018-08-24] VITALS: BP 152/73
[2018-08-24 04:01] LABS: ABSOLUTE BASOPHILS 0.1 thou/uL (0.0-0.2); ABSOLUTE EOSINOPHILS 0.2 thou/uL (0.0-0.7); ABSOLUTE LYMPHOCYTES 2.1 thou/uL (0.8-5.3); ABSOLUTE MONOCYTES 0.6 thou/uL (0.0-1.2); ABSOLUTE NEUTROPHILS 5.5 thou/uL (1.6-8.1); BASOPHILS 0.6 %; EOSINOPHILS 1.8 %; HEMATOCRIT 37.8 % (37.0-47.0); HEMOGLOBIN 12.6 gm/dL (12.0-15.0); LYMPHOCYTES 24.9 %; MCH 27.4 pg (26.0-34.0); MCHC 33.4 g/dL (28.0-37.0); MCV 82.2 fL (80.0-100.0); MONOCYTES 7.7 %; MPV 7.4 fl. (7.2-11.1); NUCLEATED RBCS 0 /100WBC; PLATELET COUNT* 240 thou/uL (150-400); RDW-CV 13.8 % (10.5-14.5); WBC 8.5 thou/uL (4.0-11.0)
[2018-08-24 04:16] LABS: CALCIUM 8.7 mg/dL (8.5-10.1); CREATININE 0.4 mg/dL (0.6-1.3); POTASSIUM 3.7 mmol/L (3.5-5.1)
--- NOTE | 2018-08-24 07:37 | NUR ---
PT ALERT AND ORIENTED. MEDS GIVEN OREDERED EXCEPT PT REFUSED LOVENOX. HYDRALAZINE GIVEN FOR HIGH BP. PT REFUSED DRESSING ON HER LEGS. PT DENIED PAIN AND SLEPT THROUGH THE NIGHT. HOURLY ROUNDING COMPLETED. WILL CONTINUE TO MONITOR.
[2018-08-24 08:00] VITALS: BP 137/59
--- NOTE | 2018-08-24 13:58 | EKG ---
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
--- NOTE | 2018-08-24 14:13 | NUR ---
SW met with pt to complete initial assessment, introduce self, and SW role. Pt alert, oriented, talkative. Pt explained that she has trouble with her legs itching especially at night and pt says that she understands that's why her wounds aren't healing all the way. Pt continues to live alone and has caregiver 3 to 4 hours each day. Pt has hx of SNF at [facility], hx of HH through [facility]. Pt has a RW and a wc. Pt does not anticipate any dc needs at this time. SW to continue to follow to assist with safe dc planning.
--- NOTE | 2018-08-24 15:58 | NUR ---
WOUND NURSE: PATIENT SEEN TO ADDRESS WOUNDS RELTATED TO SELF INFLICTION 2ND TO PRURITIS. ALL LESIONS ARE SHALLOW AND CONTAIN RED, NONGRANULATING TISSUE IN THE BEDS. THERE IS LOCALIZED REDNESS, WARMTH, AND SWELLING ON THE RLE. THERE IS CLEAR YELLOW EXUDATE DRIED IN THE WOUNDS. RLE WOUNDS MEASURE SUPERIOR TO INFERIOR FOLLOWS: 1X1X0.1; 3.5 X 1.7 X 0.1; 4.1 X 4.5 X1; (ACHILLES): 10.0 X 2.0 X 0.1 CM. LLE: 1.0 X 0.8 X 0.1; 1.5 X 1.0 X 0.1; 1.5 X 1.0 X 0.1; 2.5 X 0.8 0.1 CM. CLEANSED BLE WITH SOAP AND WATER, RINSED WITH WATER, THEN PATTED DRY. APPLIED LOTION TO INTACT SKIN TOES TO KNEE, THEN APPLIED OPTIFOAM GENTLE AG TO EACH WOUND, THEN APPLIED 3 LAYER COMPRESSION TO BLE. THIS WAS TOLERATED WELL BY PATIENT. INSTRUCTED ON MEASURES TO PROMOTE HEALING AND PREVENT FURTHER COMPLICATIONS. PATIENT STATES SHE UNDERSTANDS, BUT SHE CAN'T ALWAYS TOLERATE THE ITCHING.
[2018-08-24 16:00] VITALS: BP 146/74
--- NOTE | 2018-08-24 19:00 | NUR ---
PATIENT ALERT AND ORIENTED, COOPERATIVE AND PLEASANT THRU SHIFT. WOUND CARE CONSULTED FOR MULTIPLE OPEN AREAS TO BLE. PATIENT STATES THAT SHE HAS BEEN SCRATCHING HER LEGS SINCE SHE WAS 6 YEARS OLD. SEE WOUND CARE NOTES. IV CATH SITE NOTED WNL. PATIENT DENIES PAIN THRU SHIFT. ~TJRN
--- NOTE | 2018-08-24 19:00 | NUR ---
JESSICA ROUNDING COMPLETED. ~TJRN
[2018-08-24 19:45] VITALS: BP 157/77
--- NOTE | 2018-08-25 05:31 | NUR ---
ALERT AND ORIENTED. PT TALKED ABOUT LEAVING AMA LAST NIGHT, BUT AGREED TO STAY TILL THIS MORNING. MEDS GIVEN ORDERED. DRESSING ON HER LOWER LEGS CLEAN AND DRY. PT DENIED PAIN, SLEPT THROUGH THE NIGHT. HOURLY ROUNDING COMPLETED. WILL CONTINUE TO MONITOR.
--- NOTE | 2018-08-25 07:02 | CON ---
[address] [address] CONSULTATION Name: MICKEY COLLADO Room: [address] IN M.R.#: [id number] Admission: 08/23/18 Attend Phys: Chris Hyde MD Discharge: Date of : 52 Report #: [id number] THIS REPORT FOR: //name// CC: Chris Mcconnell DATE OF SERVICE: 08/24/2018 INFECTIOUS DISEASE CONSULTATION ATTENDING PHYSICIAN: Dr. Hyde. REASON FOR EVALUATION: Bilateral lower extremity ulcers complicated by increasing inflammation, pain with suspected skin and soft tissue infection. HISTORY OF PRESENT ILLNESS: Chart reviewed, patient examined. This is a 68-year-old known to myself, has diabetes mellitus that has been complicated by peripheral neuropathy and some degree of vasculopathy as well who had a previous history of chronic wounds associated with her lower extremities. She had been followed by the [facility], intermittently had been complicated by infection. She was discharged from the [facility] in the last several weeks; however, she notes she has been scratching her legs. Has developed several new ulcerative lesions with the right being worse than the left, involved the pretibia and the foot. She is not aware of any systemic illness, no fevers or chills. She has lost some additional weight since the last time I saw her, diminished appetite, poor p.o. intake. Denies any significant pulmonary or gastrointestinal-related complaints. ALLERGIES: LISTED TO PENICILLIN, SULFA, LATEX. CURRENT MEDICATIONS: Include fish oil, ceftriaxone, levothyroxine, pantoprazole, vancomycin, gabapentin, metformin, cholecalciferol, enoxaparin, p.r.n. analgesics and antiemetics. PAST MEDICAL HISTORY: History of diabetes mellitus that has been complicated by some peripheral neuropathy, some vasculopathy, recurrent lower extremity wounds, some of which have been self-induced, previous stroke. SOCIAL HISTORY: Nonsmoker, no ethanol, no illicit drug use. FAMILY HISTORY: Noncontributory. REVIEW OF SYSTEMS: Otherwise, 10-point review of systems unremarkable with the exception of the above in the history of present illness. PHYSICAL EXAMINATION: [place] [address] CONSULTATION Name: HEAVENMICKEY Ramsey Room: [address]#: [id number] Admission: 08/23/18 Attend Phys: Chris Hyde MD Discharge: Date of : 52 Report #: [id number] GENERAL: She is chronically ill appearing, she is pleasant, cooperative, in kxyj-gx-dfjsohue distress, degree of encephalopathy. She is undernourished. VITAL SIGNS: Temperature 98.2, pulse 89, respirations 16, blood pressure 152/73. SKIN: Warm, dry. HEENT: Normocephalic. Extraocular muscles intact. NECK: Supple. LUNGS: Diminished breath sounds. Few scattered crackles at the bases. HEART: Regular, has a soft systolic murmur. ABDOMEN: Obese, actually distended as well, mildly firm. There are no overt peritoneal signs. Really, no tenderness. EXTREMITIES: Bilateral lower extremities have multiple ulcerations with minimal amount of edema actually, but quite erythematous, painful and increased temperature. Distal pulses seem to be diminished. GENITOURINARY: Deferred. RECTAL: Deferred. LABORATORY DATA: Chest x-ray showed chronic changes, no evidence of acute process. Bilateral lower extremities, plain films without bony abnormality. CBC: White count of 8.5, H and H 13.2 and 39.4, platelets of 250. Electrolytes: Sodium 140, potassium 4.2, chloride 105, bicarbonate is 34, anion gap of 1. BUN and creatinine 19 and 0.5. Glucose of 163. Albumin of 3.1. Total protein 7.1. Estimated GFR of 123. Lactic acid 1.1. Blood cultures sterile thus far. ASSESSMENT: Bilateral lower extremity inflammatory eruption, associated with multiple ulcers that seem to be self-induced primarily, appears to have habitual picking issue. We will continue empiric antimicrobials, vancomycin, ceftriaxone, ____ does have some hypersensitivities. Previous cultures in 11/2017 showed evidence of Staph aureus, group B strep and Prevotella. Did note arterial Dopplers done in May, which showed possibility of significant stenotic disease. We will repeat those and have wound care see her in part to cover the limbs to decrease risk of further injury. She remains quite tenuous at this point. We will monitor expectantly. <ELECTRONICALLY SIGNED> By: Jas Coles MD 08/25/18 0702 1331 [id number] Coles MD /nt
[2018-08-25 08:00] VITALS: BP 146/77
[2018-08-25 14:35] VITALS: BP 146/77
--- NOTE | 2018-08-25 14:43 | NUR ---
PT.NEEDS CAB VOUCHER FOR RIDE HOME, PER JEANNE QUINONES. SHE WILL BE ABLE TO GET INTO HER HOME. RIDE ARRANGED WITH 12/07 TAXI FOR FIRST AVAILABLE TAXI. VOUCHER GIVEN TO JONI. CAB WILL CALL WHEN THEY GET TO HOSPITAL.
--- NOTE | 2018-08-25 16:10 | NUR ---
DISCHARGE NOTE - REVIEWED INSTRUCTIONS WITH PT. NO QUESTIONS. IV REMOVED. ALL BELONGINGS SENT WITH PT. CAB VOUCHER USED.
== END 2018-08-25 16:10 | disposition home or self-care (01) | DRG 603 ==
LOC: M.ERS 10:31 → M.TBA-ER 11:37 → M.ORTHSURG 11:37
PROVIDERS: Nurse Practitioner Family; ADMIT Internal Medicine
DX: L03.116 Cellulitis of left lower limb (principal); E44.1 Mild protein-calorie malnutrition; L03.115 Cellulitis of right lower limb; E11.42 Type 2 diabetes mellitus with diabetic polyneuropathy; H54.7 Unspecified visual loss; Z86.73 Personal history of transient ischemic attack (TIA), and cerebral infarction without residual deficits; Z98.42 Cataract extraction status, left eye; Z98.41 Cataract extraction status, right eye; Z88.0 Allergy status to penicillin; Z88.2 Allergy status to sulfonamides; Z91.040 Latex allergy status; Z82.49 Family history of ischemic heart disease and other diseases of the circulatory system; Z68.28 Body mass index [BMI] 28.0-28.9, adult; Z79.899 Other long term (current) drug therapy

== ENCOUNTER → 2018-08-30 | Outpatient (CLI) | payer OTHER, MEDICAID | LOC: M.WC 04:58 | DX: E11.621 Type 2 diabetes mellitus with foot ulcer (principal); L89.899 Pressure ulcer of other site, unspecified stage; L97.522 Non-pressure chronic ulcer of other part of left foot with fat layer exposed; S81.802D Unspecified open wound, left lower leg, subsequent encounter; E11.51 Type 2 diabetes mellitus with diabetic peripheral angiopathy without gangrene; E11.36 Type 2 diabetes mellitus with diabetic cataract; I10 Essential (primary) hypertension; Z87.891 Personal history of nicotine dependence; Z86.73 Personal history of transient ischemic attack (TIA), and cerebral infarction without residual deficits; X58.XXXD Exposure to other specified factors, subsequent encounter ==

== ENCOUNTER → 2018-09-06 | Outpatient (CLI) | payer OTHER, MEDICAID | LOC: M.WC 03:32 | DX: E11.621 Type 2 diabetes mellitus with foot ulcer (principal); L97.421 Non-pressure chronic ulcer of left heel and midfoot limited to breakdown of skin; S81.801D Unspecified open wound, right lower leg, subsequent encounter; S81.802D Unspecified open wound, left lower leg, subsequent encounter; E11.36 Type 2 diabetes mellitus with diabetic cataract; E11.51 Type 2 diabetes mellitus with diabetic peripheral angiopathy without gangrene; E11.41 Type 2 diabetes mellitus with diabetic mononeuropathy; I50.9 Heart failure, unspecified; I87.2 Venous insufficiency (chronic) (peripheral); Z87.891 Personal history of nicotine dependence; Z86.73 Personal history of transient ischemic attack (TIA), and cerebral infarction without residual deficits; X58.XXXD Exposure to other specified factors, subsequent encounter ==

== ENCOUNTER → 2018-09-20 | Outpatient (CLI) | payer OTHER, MEDICAID | LOC: M.WC 09-13 05:26 | DX: S81.801D Unspecified open wound, right lower leg, subsequent encounter (principal); S81.802D Unspecified open wound, left lower leg, subsequent encounter; E11.41 Type 2 diabetes mellitus with diabetic mononeuropathy; E11.51 Type 2 diabetes mellitus with diabetic peripheral angiopathy without gangrene; E11.36 Type 2 diabetes mellitus with diabetic cataract; I50.9 Heart failure, unspecified; I87.2 Venous insufficiency (chronic) (peripheral); Z86.73 Personal history of transient ischemic attack (TIA), and cerebral infarction without residual deficits; Z87.891 Personal history of nicotine dependence; X58.XXXD Exposure to other specified factors, subsequent encounter ==

== ENCOUNTER → 2018-10-04 | Outpatient (CLI) | payer OTHER, MEDICAID | LOC: M.WC 09-27 05:12 | DX: S81.801D Unspecified open wound, right lower leg, subsequent encounter (principal); S80.812A Abrasion, left lower leg, initial encounter; X58.XXXA Exposure to other specified factors, initial encounter; Y93.89 Activity, other specified; Y92.89 Other specified places as the place of occurrence of the external cause; Y99.8 Other external cause status; E11.41 Type 2 diabetes mellitus with diabetic mononeuropathy; I87.2 Venous insufficiency (chronic) (peripheral); Z87.891 Personal history of nicotine dependence; Z86.73 Personal history of transient ischemic attack (TIA), and cerebral infarction without residual deficits; E11.36 Type 2 diabetes mellitus with diabetic cataract; E11.51 Type 2 diabetes mellitus with diabetic peripheral angiopathy without gangrene; I50.9 Heart failure, unspecified ==

== ENCOUNTER → 2018-10-18 | Outpatient (CLI) | payer OTHER, MEDICAID | LOC: M.WC 04:58 | DX: S81.801D Unspecified open wound, right lower leg, subsequent encounter (principal); E11.41 Type 2 diabetes mellitus with diabetic mononeuropathy; E11.36 Type 2 diabetes mellitus with diabetic cataract; E11.51 Type 2 diabetes mellitus with diabetic peripheral angiopathy without gangrene; I87.2 Venous insufficiency (chronic) (peripheral); I50.9 Heart failure, unspecified; Z87.891 Personal history of nicotine dependence; Z86.73 Personal history of transient ischemic attack (TIA), and cerebral infarction without residual deficits; X58.XXXD Exposure to other specified factors, subsequent encounter ==

== ENCOUNTER 2019-02-21 17:28 | Inpatient (IN) | payer OTHER, MEDICAID ==
[~2019-02-21] VITALS: Ht 152.4 cm; Wt 72.6 kg
[~2019-02-21 17:28] MED LIST changes: +GLUCOPHAGE XR500 M1 PO; -GLUCOPHAGE XR500 MG PO
[2019-02-21 17:33] VITALS: BP 171/88
--- NOTE | 2019-02-21 17:44 | NUR ---
PT STATING SHE IS JUST HERE TO HAVE HER WOUNDS CHECKED AND SHE REFUSES TO GET IN A GOWN. DR. BOLAND NOTIFIED.
[2019-02-21 18:49] LABS: ABSOLUTE BASOPHILS 0.1 thou/uL (0.0-0.2); ABSOLUTE LYMPHOCYTES 1.6 thou/uL (0.8-5.3); ABSOLUTE MONOCYTES 0.9 thou/uL (0.0-1.2); ABSOLUTE NEUTROPHILS 11.3 thou/uL (1.6-8.1); BASOPHILS 0.4 %; EOSINOPHILS 0.3 %; HEMATOCRIT 39.3 % (37.0-47.0); HEMOGLOBIN 12.8 gm/dL (12.0-15.0); LYMPHOCYTES 11.4 %; MCH 26.1 pg (26.0-34.0); MCHC 32.6 g/dL (28.0-37.0); MCV 79.9 fL (80.0-100.0); MONOCYTES 6.3 %; MPV 6.8 fl. (7.2-11.1); NUCLEATED RBCS 0 /100WBC; PLATELET COUNT* 401 thou/uL (150-400); POLYS 81.6 %; RBC 4.91 mil/uL (4.20-5.00); RDW-CV 14.5 % (10.5-14.5); WBC 13.9 thou/uL (4.0-11.0)
[2019-02-21 18:59] LABS: CALCIUM 9.1 mg/dL (8.5-10.1); CREATININE 0.7 mg/dL (0.6-1.3)
[2019-02-21 19:04] LABS: ALBUMIN 2.5 g/dL (3.4-5.0); MAGNESIUM 1.6 mg/dL (1.8-2.4); TOTAL BILIRUBIN 0.4 mg/dL (<0.1-1.0); TOTAL PROTEIN 6.8 g/dL (6.4-8.2)
[2019-02-21 19:41] VITALS: BP 135/83
[2019-02-21 20:23] VITALS: BP 136/66
[2019-02-22 04:05] LABS: ABSOLUTE EOSINOPHILS 0.1 thou/uL (0.0-0.7); ABSOLUTE MONOCYTES 0.7 thou/uL (0.0-1.2); ABSOLUTE NEUTROPHILS 9.3 thou/uL (1.6-8.1); BASOPHILS 0.4 %; EOSINOPHILS 0.7 %; HEMATOCRIT 34.3 % (37.0-47.0); HEMOGLOBIN 11.3 gm/dL (12.0-15.0); LYMPHOCYTES 16.4 %; MCH 26.2 pg (26.0-34.0); MCV 79.3 fL (80.0-100.0); MONOCYTES 6.1 %; MPV 6.7 fl. (7.2-11.1); NUCLEATED RBCS 0 /100WBC; PLATELET COUNT* 338 thou/uL (150-400); POLYS 76.4 %; RBC 4.32 mil/uL (4.20-5.00); RDW-CV 14.2 % (10.5-14.5); WBC 12.2 thou/uL (4.0-11.0)
[2019-02-22 04:08] LABS: CALCIUM 8.8 mg/dL (8.5-10.1); CREATININE 0.6 mg/dL (0.6-1.3); POTASSIUM 3.9 mmol/L (3.5-5.1)
--- NOTE | 2019-02-22 05:42 | NUR ---
WOUNDS LEFT UNCOVERED, PICTURES TAKEN IN CHART. REFUSED TO STAY IN BED TO USE BEDPAN SO WANTED TO USE THE COMMODE. STARTED ABX CHEST XRAY WAS NORMAL. PLAN TO CONSULT WITH PODIATRY AND INFECTIOUS DISEASE. WILL CONTINUE TO FOLLOW PLAN OF CARE.
[2019-02-22 09:05] VITALS: BP 148/68
--- NOTE | 2019-02-22 12:57 | EKG ---
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1950 Requested By: Neisha Holguin Order Number: [id number] MD: Niall Pool Measurements Intervals [place] Rate: 100 P: 81 PA: 121 QRS: 90 QRSD: 87 T: 33 QT: 344 QTc: 444 Interpretive Statements Sinus tachycardia atrial and ventricular premature complexes Borderline right axis deviation Baseline wander in lead(s) II,III,aVR,aVF Compared to ECG 08/23/2018 12:30:47 Sinus rhythm no longer present pac and pvc noted Electronically Signed On 02-22-2019 12:56:55 BLUEPRINT CLERK by Niall Pool [email or web address] <ELECTRONICALLY SIGNED> By: Niall Pool MD, FACC 02/22/19 1256 1845 1845 Niall Pool MD, FACC /EPI
--- NOTE | 2019-02-22 14:18 | NUR ---
Pt lives at home alone and has caregiver support at times. Pt has hx of HH services and hx of SNF. SW/CM to continue to follow to assist with safe dc planning.
[2019-02-22 16:04] VITALS: BP 181/80
--- NOTE | 2019-02-22 19:00 | NUR ---
PATIENT INSTRUCTED REPEATEDLY NOT TO PICK AT OPEN SKIN WOUNDS. 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 PATIENT INSTRUCTED TO FIND SOMETHING TO DISTRACT FROM THE WOUNDS. DR ROMERO IN TO SEE PATIENT THIS AFTERNOON, APPLIED DRSG TO LT FOOT. HRLY ROUNDS DONE. ~RachanaRN
[2019-02-22 20:20] VITALS: BP 153/75
[2019-02-23 02:06] LABS: GLYCOHEMOGLOBIN (HGB A1C) 9.7 % (4.8-5.6)
--- NOTE | 2019-02-23 03:51 | NUR ---
PATIENT HAS REMAINED ALERT AND ORIENTED X 4 THROUGHOUT THE SHIFT. MEDS/IVF'S PER ORDERS. CONTINUES TO PICK AT SORES OF BILAT LE'S AND WILL NOT LEAVE LEFT FOOT DRESSING IN PLACE. VITAL SIGNS STABLE WITH LOW-GRADE TEMP 99.1. NPO AT MIDNIGHT FOR SURGICAL PROCEDURE TODAY. CONTINUE TO MONITOR.
--- NOTE | 2019-02-23 06:18 | NUR ---
NO CHANGE FROM PREVIOUS ENTRY.
--- NOTE | 2019-02-23 07:19 | CON ---
[address] [address] CONSULTATION Name: MICKEY COLLADO Room: [address] IN .R.#: [id number] Admission: 02/21/19 Attend Phys: Chris Hyde MD Discharge: Date of : 52 Report #: [id number] THIS REPORT FOR: //name// CC: Chris Englandgie [facility] DATE OF SERVICE: 02/22/2019 INFECTIOUS DISEASE CONSULTATION ATTENDING PHYSICIAN: Chris Hyde MD REASON FOR EVALUATION: Left second toe gangrene, multiple ulcers involving the distal lower extremity. HISTORY OF PRESENT ILLNESS: The patient is a 68-year-old woman with fairly extensive medical history given her age, does have diabetes mellitus complicated by peripheral vascular disease as well as hypertension and multiple issues with lower extremity ulcers, has [facility]. Over the course of last few days prior to admission, she noticed changes with discoloration of the left second toe. She also has superficial ulcers. It is notable that habitual history of picking is felt in fact to be an issue with her nonresolving wounds. She denies significant amount of pain associated with it. She denies any antecedent injury. No recent fevers or chills. Her appetite has only been fair. No significant pulmonary or gastrointestinal-related complaints. Due to concern about gangrene involving the second toe, she was admitted. She was placed on vancomycin, given a dose of ceftriaxone as well, waiting on the Podiatry evaluation that I suspect will be a recommendation of a toe amputation versus auto amputation. ALLERGIES: LISTED TO PENICILLIN, SULFA, LATEX. CURRENT MEDICATIONS: Include tramadol, vancomycin, levothyroxine, pantoprazole, insulin, metformin, enoxaparin. PAST MEDICAL HISTORY: As described above, diabetes mellitus type 2, insulin-requiring; history of presumed vasculopathy, previous stroke, has peripheral vascular disease, lower extremity ulcers that are chronic and previous tonsillectomy. SOCIAL HISTORY: Nonsmoker, no ethanol, no illicit drug use. FAMILY HISTORY: Noncontributory. REVIEW OF SYSTEMS: Otherwise, 10-point review of systems otherwise unremarkable [place] [address] CONSULTATION Name: HEAVENMICKEY Ramsey Room: [address]#: [id number] Admission: 02/21/19 Attend Phys: Chris Hyde MD Discharge: Date of : 52 Report #: [id number] PHYSICAL EXAMINATION: GENERAL: She is pleasant, alert, cooperative. She is chronically ill-appearing, undernourished. She has a slight degree of encephalopathy, I believe. VITAL SIGNS: Temperature 98.4, pulse 92, respirations 18, blood pressure 136/66. SKIN: Warm, dry. HEENT: Normocephalic. Extraocular muscles intact. NECK: Supple. LUNGS: Diminished breath sounds. Few scattered crackles. HEART: Regular. I do not appreciate any murmur. ABDOMEN: Soft, mildly distended. There are no peritoneal signs. EXTREMITIES: Distal lower extremities has several superficial ulcerations below the knee, does have gangrenous change in left second toe. There is no particular odor, appears more consistent with dry gangrene. LABORATORY DATA: Blood cultures are sterile thus far. Prealbumin low at 11.2. Electrolytes: Sodium 139, potassium 3.9, chloride 102, bicarbonate is 29, anion gap of 8, BUN and creatinine 10 and 0.6, glucose of 256. Estimated GFR of 100. CBC: White count of 12.2, H and H 10.3 and 34.3, platelets of 338. Left foot, 3 views showed osteomyelitis and destruction of the proximal phalanx of the second toe, also destruction of the distal aspect of the second metatarsal, soft tissue gas. Chest x-ray, no acute process. Lactic acid 1.3. Liver functions otherwise unremarkable. Albumin of 2.5, total protein 6.8. ASSESSMENT: Bilateral lower extremities, there are multiple superficial ulcers. There may be a component of habitual picking. I do think she probably has some underlying vascular disease, the gangrenous toe is not clear, but would be worried about embolic phenomenon as well. We will await pending evaluation. We will check arterial Doppler back in July this year since infrapopliteal disease on the right and apparent absent flow of the posterior tibial artery to have mild SFA stenosis. Suggest there is improved arterial flow in that side as compared to the right. We will monitor expectantly. Certainly at risk for nosocomial-related infectious complications. <ELECTRONICALLY SIGNED> By: Jas Coles MD 02/23/19 0719 [id number] Coles MD /nt
[2019-02-23 10:00] VITALS: BP 131/41
[2019-02-23 10:24] LABS: URINE BILIRUBIN NEGATIVE (Negative); URINE BLOOD NEGATIVE (Negative); URINE CLARITY CLEAR; URINE COLOR YELLOW; URINE GLUCOSE-RANDOM NEGATIVE (Negative); URINE KETONES TRACE (Negative); URINE LEUKOCYTES-REFLEX NEGATIVE (Negative); URINE NITRITE-REFLEX NEGATIVE (Negative); URINE PROTEIN NEGATIVE (Negative); URINE SPECIFIC GRAVITY >= 1.030 (1.005-1.030); URINE UROBILINOGEN 0.2 E.U./dl (0.2-1.0)
--- NOTE | 2019-02-23 17:45 | NUR ---
PATIENT RETURNS TO RM PER BED FROM PACU AFTER PROCEDURE TO LEFT FT. BULK DRSG NOTED TO LEFT FOOT, FOOT ELEVATED ON PILLOW. TOMAS WRAP DRSGS NOTED FROM KNEES DOWN, CDI. PATIENT ALERT AND ORIENTED. PATIENT DENIES PAIN AT THIS TIME. SUPPER MEAL IN RM. PATIENT EATING WELL. HRLY ROUNDS DONE AND NEEDS MET WHILE ON UNIT. ~TJRN
[2019-02-23 19:38] VITALS: BP 113/54
[2019-02-24] VITALS: BP 121/62
--- NOTE | 2019-02-24 03:15 | NUR ---
ASSUMED CARE OF PT 02/23/19, PT A&OX4 THROUGHOUT SHIFT, VSS, PT ON ROOM AIR, NON-WEIGHT BEARING LT FOOT, LT FOOT ELEVATED, DRSG IN PLACE, PAIN MEDS REQUESTED AND GIVEN ORDERED, ASSESSMENTS AND HOURLY ROUNDINGS COMPLETED, WILL CONTINUE TO MONITOR.
[2019-02-24 04:15] VITALS: BP 133/68
[2019-02-24 07:48] VITALS: BP 116/89
[2019-02-24 12:00] VITALS: BP 129/66
[2019-02-24 16:00] VITALS: BP 148/73
--- NOTE | 2019-02-24 17:13 | NUR ---
PT A&Ox4. VITALS STABLE. IV PATENT, INFUSING. UP WITH 1 TO CAMMODE. NWB ON LLE. DRESSINGS ARE C/D/I. TOLERATING DIET. PAIN CONTROLLED WITH TRAMADOL. DENIED N/V. FALL PRECAUTIONS IN PLACE. CALL LIGHT WITHIN REACH. WILL CONTINUE TO MONITOR.
[2019-02-24 19:42] VITALS: BP 133/69
[2019-02-25 04:56] LABS: HEMOGLOBIN 10.6 gm/dL (12.0-15.0); MCH 26.1 pg (26.0-34.0); MCHC 32.9 g/dL (28.0-37.0); MCV 79.2 fL (80.0-100.0); MPV 6.8 fl. (7.2-11.1); RBC 4.05 mil/uL (4.20-5.00); RDW-CV 14.7 % (10.5-14.5)
[2019-02-25 05:11] LABS: CALCIUM 8.2 mg/dL (8.5-10.1); CREATININE 0.5 mg/dL (0.6-1.3); POTASSIUM 3.6 mmol/L (3.5-5.1)
--- NOTE | 2019-02-25 05:20 | NUR ---
PATIENT RECEIVED ABX AND FLUIDS SCHEULDED. SHE REQUESTED PAIN MEDICATION TWICE FOR LEFT FOOT PAIN. SHE IS STILL NOT ABLE TO BEAR WEIGHT ON LOWER LEFT EXTREMITY. PLAN IS TO CONTINUE RECEIVING IV ABX. WILL CONTINUE TO FOLLOW PLAN OF CARE.
[2019-02-25 07:42] VITALS: BP 145/79
--- NOTE | 2019-02-25 17:53 | NUR ---
PT A&Ox4. VITALS STABLE. PAIN CONTROLLED WITH TRAMADOL. NAUSEA CONTROLLED WITH ZOFRAN. UP WITH 1 TO CAMMODE. NWB ON LLE. DRESSING C/D/I, SURGICAL DRESSING IN PLACE. CALL LIGHT WITHIN REACH. FALL PRECAUTIONS IN PLACE. WILL CONTINUE TO MONITOR.
[2019-02-25 19:41] VITALS: BP 127/64
--- NOTE | 2019-02-26 04:42 | NUR ---
PATIENT HAD SOME NAUSEA AND VOMITING LAST SHIFT SUSPECTS IT WAS PAIN MEDS AND REQUESTED ONLY SCHEDULED TRAMADOL WHICH IS ON FOR Q6. SHE IS STILL PIVOTING TO COMMODE HAS A LLE WB RESTRICTION. SHE RECEIVED ALL ABX AND FLUIDS ORDERED AND PLAN IS TO CONTINUE IV ABX AND AWAITING TISSUE AND BONE CULTURES. NUTRITION HAS BEEN CONSULTED FOR WOUND HEALING. WILL CONTINUE TO FOLLOW PLAN OF CARE.
[2019-02-26 07:40] VITALS: BP 141/70
--- NOTE | 2019-02-26 15:06 | NUR ---
signed vendor of choice form placed in pt's chart. cm faxed [facility] referral. meme will call this cm to confirm receipt.
[2019-02-26 17:03] VITALS: BP 150/70
--- NOTE | 2019-02-26 18:30 | NUR ---
ASSUMED CARE OF PATIENT AT APPROX 0730. ALERT AND ORIENTED X4. ASSESSMENT COMPLETED AND CHARTED. VSS ON ROOM AIR. PAIN MANAGED WITH TRAMADOL. NAUSEA MANAGED WITH IV ZOFRAN. NO OTHER COMPLAINTS THIS SHIFT. PATIENT UP WITH ASSIST, GAIT BELT AND WALKER. REFUSING TO WEAR SURGICAL SHOE, EDUCATION GIVEN. FALLPRECAUTIONS IN PLACE. CALL LIGHT WITHIN REACH. HOURLY ROUNDS COMPLETED. WILL CONTINUE WITH PLAN OF CARE.
[2019-02-26 19:47] VITALS: BP 125/64
--- NOTE | 2019-02-27 06:53 | NUR ---
ASSUMED CARE OF PT 02/26/19 AT APPROX 1945, PT A&OX4, VSS, PAIN MED REQUESTED AND GIVEN ORDERED, ASSESSMENTS AND HOURLY ROUNDINGS COMPLETED, WILL CONTINUE TO MONITOR.
[2019-02-27 07:59] VITALS: BP 164/100
--- NOTE | 2019-02-27 13:45 | NUR ---
MARTIN HODGES W/CARLOZ AT [facility] TO F/U ON STATUS. CARLOZ STATED HER DON IS STILL REVEIWING AND CARLOZ WILL CONTACT MARTIN ONCE A DECISION HAS BEEN MADE.
--- NOTE | 2019-02-27 18:52 | NUR ---
PT A&Ox4. VITALS STABLE. DRESSING CHANGED BY DR RODRIGUEZ. PAIN CONTROLLED WITH TRAMADOL. IV PATENT, INFUSING. TOLERATING DIET. WANTING TO GO TO REHAB. FALL PREACUTIONS IN PLACE. CALL LIGHTS WITHIN REACH. WILL CONTINUE TO MONITOR.
[2019-02-27 20:38] VITALS: BP 142/72
--- NOTE | 2019-02-28 03:49 | NUR ---
ASSUMED CARE OF PT 02/27/19, PT A&OX4, NO ROOM AIR, NWB TO LLE MAINTAINED - PT PIVOTS FROM BED TO TO BEDSIDE COMDE WITH SB ASSIST, PAIN MED REQUESTED AND GIVEN ORDERED, CONTACT ISOLATION MAINTAINED - PT EDUCATED, DRESSING IN PLACE, C/D/I, VSS, WILL CONTINUE TO MONITOR.
--- NOTE | 2019-02-28 15:00 | NUR ---
DRSG CHANGE TO LT FOOT DONE PER DR ROMERO TELEPHONE REQUEST. OLD DRSG REMOVED, SL ODOR NOTED. AMPUTATION SITE CLEANSED W/ NS, PAT DRY. WOUND CLEANSER APPLIED TO AREA. GAUZE INSERTED IN SURG SITE LOOSELY, COVERED W/ GAUZE, FOOT WRAPPED W/ ABD AND KERLIX, COVERED W/ TOMAS. PATIENT GEO WELL. FOOT ELEVATED ON PILLOW. ~TJRN
[2019-02-28 16:35] VITALS: BP 160/65
[2019-02-28 20:39] VITALS: BP 154/88
--- NOTE | 2019-03-01 05:24 | NUR ---
PATIENT UP TO COMMODE WITH ASSISTANCE X1. TAKING SCHEDULED TRAMADOL AND RECEIVING SCHEDULED ABX. HAD SEVERAL SMALL BM THROUGH NIGHT AND WAS ABLE TO SLEEP. VSS, A&O X4. PLAN IS TO D/C TO SNF, ABX CONTINUE. WILL CONTINUE TO FOLLOW PLAN OF CARE.
[2019-03-01 08:04] VITALS: BP 109/66
[2019-03-01] MEDS ORDERED: NEURONTIN 400400 M1 PO (08:09)
[2019-03-01] MEDS ORDERED: TRAMADOL 50 MG50 MG PO (08:10)
[2019-03-01] MEDS ORDERED: VANCO 1.251.25 GM/25 IVPB (08:11)
[2019-03-01 09:39] VITALS: BP 109/66
--- NOTE | 2019-03-01 12:19 | NUR ---
WOUND CARE NOTE: CONSULED FOR DRESSING CHANGE TO LEFT FOOT PATIENT IS S/P AMPUTATION OF 2ND TOE TO LEFT FOOT. DRESSING REMOVED, MODERATE SEROSANGUINEOUS DRAINAGE NOTED TO OLD DRESSING. INCISION LINE WELL APPROXIMATED WITH SUTURES IN PLACE. MACERATION NOTED. UNABLE TO FULLY ASSESS WOUND, PATIENT IS ANXIOUS AND DID NOT WANT ME TOUCHING THE WOUND. REPACKED WITH AQUACEL AG AND COVERED WITH ABD. NOTICED A PURULENT FILLED BULLA TO THE PLANTAR SURFACE OF HER RIGHT FOOT NEAR THE 1ST METATARSAL HEAD EXTENDING TOWARDS THE MIDFOOT. ERYTHEMA NOTED SURROUNDING THIS AREA AND EXTENDING TO THE MEDIAL MALLEOLUS. COAT MAKER NOTIFIED, PLANS TO SEE PATIENT THIS EVENING. COVERED THIS TOO WITH AN ABD. SECURED WITH KERLIX AND TOMAS. CHANGED DRESSING TO RIGHT LEG, PATIENT STATES DRESSING HAD BEEN IN PLACE SINCE TUESDAY WHEN DR. ROMERO PLACED IT. CLEANSED LESIONS PATIENT WOULD ALLOW. LESION NEAR ACHILLES AREA, RED, MOIST GRANULATION. MEDINA-WOUND WITH NEW EPITHELIUM AND DRIED SANGUINEOUS DRAINAGE. APPLIED VASELINE GAUZE OVER THIS AREA AND AREA NEAR ANTERIOR ANKLE. SECURED WITH KERLIX AND TOMAS. PATIENT IS ANXIOUS DURING CHANGE, WANTED THINGS APPLIED A SPECIFIC WAY. RECOMMEND OFFLOAD LEFT FOOT Q3 DAY DRESSING CHANGE TO RIGHT LEG AND LEFT LEG PARTIAL THICKNESS LESIONS. ENCOURAGE GOOD NUTRITION/HYDRATION TIGHT BLOOD GLUCOSE CONTROL FOLLOW UP IN WOUND CENTER WITH [facility] UPON DISCHARGE-DR. ROMERO NEEDS TO SEE BEFORE DISCHARGE
[2019-03-01 16:00] VITALS: BP 152/76
--- NOTE | 2019-03-01 16:26 | NUR ---
PT A&Ox4. VITALS STABLE. PAIN CONTROLLED WITH TRAMADOL. DENIED N/V. DRESSING CHANGED BY WOUND NURSE. NOT ABLE TO GO TO [facility] DUE TO NO TRANSPORTATION TO WOUND CENTER. UP WITH 1. PICC LINE PLACED TO DC ON VANC. DRESSING C/D/I. CALL LIGHT WITHIN REACH. FALL PRECAUTIONS IN PLACE. WILL CONTINUE TO MONITOR.
--- NOTE | 2019-03-01 18:46 | NUR ---
INITIALLY THIS AM [facility]/INO TOLD CM THEY WOULD NOT BE ABLE TO ACCEPT PT.TO THEIR FACILITY IF PT.NEEDING TO RETURN TO [facility], THEY WOULD NOT HAVE TRANSPORTATION FOR PT. KRYSTLE SPOKE WITH AND HE SAID HE MUST BE ABLE TO COME TO WOUND CENTER FOR WOUND CHECKS. CM SPOKE WITH CARLOZ AGAIN THIS AFTERNOON. INFORMED HER OF 'S MESSAGE. SHE SAID WELL DON'T RULE US OUT COMPLETELY. IF APPTS. ARE ONLY EVERY 1-2 WEEKS FOR ONLY A FEW TIMES, WE MAY BE ABLE TO TAKE HER. SHE SAID THEY WOULD BE ABLE TO DO THE IV VANCOMYCIN INFUSIONS. CM WILL FOLLOW.
[2019-03-01 20:50] VITALS: BP 160/76
--- NOTE | 2019-03-02 02:06 | PATH ---
[address] [address] PATHOLOGY RPT PROCEDURE Name: MICKEY COLLADO Room: [address] IN M.R.#: [id number] Admission: 02/21/19 Date of : 52 Discharge: Report #: [id number] Path Case #: [id number] L[facility] Accession Number: [id number] . 01 Material submitted: . toe - SECOND LEFT TOE AND DISTAL METATARSAL. Modifiers: left, second, distal . 01 Clinical history: . Osteomyelitis left second toe . 02 Diagnosis: "Second left toe and distal metatarsal", amputation: - Skin and subcutaneous tissue with acute and chronic inflammation, necrosis, granulation tissue, fibrosis, fat necrosis, and pseudoepitheliomatous hyperplasia. - Decalcified bone with extensive acute osteomyelitis. . (MIRNA:elijah; 03/01/2019) [facility] 03/01/2019 1602 Local . 02 Electronically signed: . Jennifer Bone MD, Pathologist NPI- [id number] . 01 Gross description: . The specimen is received in formalin, labeled "Mickey Collado, second left toe and distal metatarsal". Received is a partial amputated digit with attached soft tissue extending past the bone margin measuring 4.7 x 1.6 x 1.5 cm in greatest dimensions. The bone margin is identified on the plantar aspect of the specimen displaying a smooth and concave appearance. This margin is inked black. The nail is present displaying a light orta and slightly thickened appearance. The epidermal surface is brown-black and mummified in appearance. Depositing Machine Operator sections of the skin and soft tissue proximal to the bone margin are submitted in cassette A1. A full-thickness longitudinal cross-section of the digit is submitted in cassette A2, following decalcification. . Also received within the specimen container is an additional segment of bone displaying one smooth, convex, disarticulated margin and one blunt, transected margin measuring 3.5 x 1.5 x 1.0 cm in greatest dimensions. The transected margin is inked black. A full-thickness longitudinal cross-section is submitted from transected to disarticulated aspects in cassettes A3 and A4, following decalcification. (CAA; 02/27/2019) QAC/QAC 02/27/2019 [facility] Local . 02 Pathologist provided ICD-10: [place] [address] PATHOLOGY RPT PROCEDURE Name: MICKEY COLLADO Room: [address] ADM IN M.R.#: [id number] Admission: 02/21/19 Date of : 52 Discharge: Report #: [id number] Path Case #: [id number] M86.172, L08.9, L92.8, L85.8 . 02 CPT . [id number], [id number] Specimen Comment: A courtesy copy of this report has been sent to [phone] Specimen Comment: [id number], Specimen Comment: Report sent to ,DR HERNÁNDEZ / DR DICKERSON Performed at: [address] [facility] [address], [place], [place] [id number] MD Ronald Jansen MD Phone: [phone] Performed at: 02 [facility] [address], [place], [place] [id number] MD Jairo Small MD Phone: [phone]
--- NOTE | 2019-03-02 05:25 | NUR ---
PAIN WELL MANAGED ON Q4 TRAMADOL. STILL CAN PIVOT TO THE COMMODE WELL. VSS AND STILL A&0 X4. WOUNDS ARE STILL COVERED AND DRESSING/MEPALEX C/DI. ORTHO BOOT. MAINTAINED CONTACT PRECAUTIONS FOR MRSA/STAFF OF LEFT FOOT WOUND. PLAN IS TO D/C WITH VANC ORDER ONCE PLACEMENT IS FOUND. WILL CONTINUE TO FOLLOW PLAN OF CARE.
[2019-03-02 08:00] VITALS: BP 156/86
--- NOTE | 2019-03-02 13:00 | NUR ---
[facility]/INO CALLED [facility] AND SAID THEY COULD ACCEPT PT.AT DISCHARGE PENDING INSURNACE AUTH. CALLED HER AT THIS TIME TO INFORM PT.GOING BACK TO SURGERY TOMORROW SO WAIT UNTIL TUESDAY TO GET INSURANCE AUTH DISCHARGE DATE UNKNOWN AT THIS TIME.
--- NOTE | 2019-03-02 16:22 | NUR ---
PT A&Ox4. VITALS STABLE. PICC LINE PATENT, SL. TOLERATING DIET. DRESSING CHANGED BY DR ROMERO. UP WITH 1 TO HATTIE. WILL GO TO OR TOMORROW FOR DEBRIDEMENT OF LEFT FOOT. FALL PRECAUTIONS IN PLACE. DRESSING C/D/I. CALL LIGHT WITHIN REACH. WILL CONTINUE TO MONITOR.
[2019-03-02 16:37] VITALS: BP 148/82
--- NOTE | 2019-03-02 19:19 | NUR ---
HARISH ZHENG FROM LAB CALLED AT 19:17 REPORTING A VANC TROUGH RESULT OF 32. WILL HOLD AM DOSE AND HAVE DAYSHIFT NURSE RELAY TO DR NELSON TO DETERMINE.
[2019-03-02 20:30] VITALS: BP 152/93
[2019-03-03 04:19] VITALS: BP 152/93
--- NOTE | 2019-03-03 05:53 | NUR ---
BEEN NPO SINCE MIDNIGHT. SURGERY SCHEDULED FOR THIS AM DEBRIDEMENT OF WOUND LEFT FOOT. VANC AT 0700 TROUGH SCHEDULED. PATIENT DID GET TRAMADOL Q4 FOR PAIN MANAGEMNET. VSS. PIVOT TO COMMODE. CONSENT ON CHART. MRSA CONTACT PRECAUTIONS IN PLACE. PLAN TO D/C TO SNF IN [place] PENDING APPROVAL. WILL CONTINUE TO MONITOR.
[2019-03-03 09:19] VITALS: BP 173/93
[2019-03-03 15:51] LABS: HEMATOCRIT 32.2 % (37.0-47.0); HEMOGLOBIN 10.5 gm/dL (12.0-15.0); MCH 25.7 pg (26.0-34.0); MCHC 32.7 g/dL (28.0-37.0); MCV 78.6 fL (80.0-100.0); MPV 6.4 fl. (7.2-11.1); RBC 4.09 mil/uL (4.20-5.00); RDW-CV 14.7 % (10.5-14.5); WBC 11.1 thou/uL (4.0-11.0)
[2019-03-03 15:58] LABS: CALCIUM 7.9 mg/dL (8.5-10.1); CREATININE 0.5 mg/dL (0.6-1.3); MAGNESIUM 1.2 mg/dL (1.8-2.4)
[2019-03-03 15:59] LABS: POTASSIUM 2.9 mmol/L (3.5-5.1)
[2019-03-03 16:00] VITALS: BP 173/83
--- NOTE | 2019-03-03 16:35 | NUR ---
ASSUMED CARE OF PATIENT AT APPROX 0730. ALERT AND ORINIENTED X4. ASSESSMENT COMPLETED AND CHARTED. VSS ON ROOM AIR. PATIENT WENT TO PACU APPROX 0740 AND RETURNED AT 0918. PATIENT REMAINS ALERT AND ORIENTED. PAIN MANAGED WITH MORPHINE AND PO TRAMADOL. NO OTHER COMPLAINTS THIS SHIFT. FALL PRECAUTIONS IN PLACE. CALL LIGHT WITHIN REACH. HOURLY ROUNDS COMPLETED. WILL CONTINUE WITH PLAN OF CARE.
[2019-03-03 20:00] VITALS: BP 141/79
--- NOTE | 2019-03-04 05:33 | NUR ---
PT ALERT ORIENTED. PT TWITCHES AND HAS TICS. TRAMADOL AND MORPHINE GIVEN FOR PAIN IN L FOOT. R PICC NURSE DRAW LABS. VANC TROUGH DRAWN AND PENDING.
[2019-03-04 06:02] LABS: HEMATOCRIT 30.2 % (37.0-47.0); MCH 26.2 pg (26.0-34.0); MCV 79.2 fL (80.0-100.0); MPV 6.6 fl. (7.2-11.1); RBC 3.82 mil/uL (4.20-5.00); RDW-CV 15.1 % (10.5-14.5); WBC 9.3 thou/uL (4.0-11.0)
[2019-03-04 06:22] LABS: CALCIUM 7.8 mg/dL (8.5-10.1); CREATININE 0.5 mg/dL (0.6-1.3); MAGNESIUM 1.3 mg/dL (1.8-2.4)
[2019-03-04 06:25] LABS: POTASSIUM 3.9 mmol/L (3.5-5.1)
[2019-03-04 10:15] VITALS: BP 122/52
--- NOTE | 2019-03-04 19:00 | NUR ---
PATIENT PLEASANT AND COOPERATIVE THRU SHIFT. DR ROMERO IN THIS AM FOR WOUND CARE TO LT FT SURGICAL SITES. SEE APR. HRLY ROUNDS DONE. LLE ELEVATED ON PILLOW. ~TJRN
[2019-03-04 20:30] VITALS: BP 160/90
[2019-03-05 06:23] LABS: HEMATOCRIT 34.2 % (37.0-47.0); MCH 25.6 pg (26.0-34.0); MCHC 32.3 g/dL (28.0-37.0); MCV 79.2 fL (80.0-100.0); MPV 6.3 fl. (7.2-11.1); RBC 4.32 mil/uL (4.20-5.00); RDW-CV 15.4 % (10.5-14.5); WBC 8.6 thou/uL (4.0-11.0)
--- NOTE | 2019-03-05 07:54 | NUR ---
Alert and oriented x 4. She does make spastic like movements with her face and hands. Dressings to bilat LE's were intact. She had magnesium replaced and this am she is stil low. 800 mg was given. She pulled out her PICC line in her rt upper arm. The [address] Dr Coles gave order for PICC line to be replaced. She had fresh picks kolb on her arm around where the PICC line was but she denies she did pulled it out.
[2019-03-05 09:30] VITALS: BP 144/70
--- NOTE | 2019-03-05 13:36 | NUR ---
RIGHT BASILIC VESSEL EVALUATED FOR PICC INSERTION PROCEDURE. RIGHT BASILIC VESSEL OBSERVED WITH PARTIALL OCCLUSIVE CLOT-LIKE MASS 4CM BELOW THE AXILLA. DR HERNÁNDEZ NOTIFIED. LEFT BASILIC VESSEL ACCESSED FOR 5 GREENLANDIC DUAL LUMEN PICC. LINE PRE-TRIMMED TO 43CM AND ADVANCED TO THE ZERO ARELY WITH NO RESISTANCE MET. UPPER ARM CIRCUMFERENCE ABOVE INSERTION SITE=12". SHERLOCK MAGNET AND 3CG CONFIRMATION OF TIP TERMINATION AT THE CAVOATRIAL JUNCTION APRECIATED. GUIDE WIRE REMOVED, LINE FLUSHED AND INSERTION SITE DRESSED. REPORT GIVEN TO HEAVEN ANGEL.
--- NOTE | 2019-03-05 16:40 | NUR ---
ALERT AND ORIENTED X4. HAS TREMORS AND JERKING MOVEMENTS. RECEIVING PT, OT AND ST THERAPIES. UP WITH STAND BY ASSIST, AND GAIT BELT WITH 50% WEIGHTBEARING TO LEFT FOOT WITH ORTHO SHOE. NEW PICC LINE PLACED WITHOUT DIFFICULTY. DRESSING DRY AND INTACT OVER RIGHT LEG AND LEFT FOOT. CONTINUES ON O2 AT 2L/NC TO KEEP O2 SATS IN 90'S. RECEIVES IV ANTIBIODIC. USING PO PAIN MEDICATION TO HELP WITH LEFT FOOT PAIN. CALL LIGHT WITHIN REACH. FALL PRECAUTIONS IN PLACE.
[2019-03-05 21:05] VITALS: BP 162/75
--- NOTE | 2019-03-06 05:49 | NUR ---
ASSUMED CARE OF PT 03/05/19 AT APPROX 1930, PT A&OX4, PT ON ROOM AIR, VSS, CONTACT ISOLATION PRECAUTIONS MAINTAINED, HOURLY ROUNDINGS AND ASSESSMENTS COMPLETED, WILL CONTINUE TO MONITOR.
[2019-03-06 08:39] VITALS: BP 152/94
[2019-03-06 13:06] VITALS: BP 109/66
--- NOTE | 2019-03-06 13:53 | NUR ---
WOUND CARE NOTE: REASSESSMENT OF LEFT FOOT ULCERATION. PATIENT IS POD 3 FROM AN I&D, DEBRIDEMENT OF THE PLANTAR SURFACE OF THE LEFT FOOT. ODOR STILL REMAINS, BUT EDEMA AND ERYTHEMA ARE RESOLVING. I&D SITE MEASURES 7.5X2X2.5. MOIST, YELLOW, RED, NON-GRANULAR WOUND BED. MEDINA-WOUND IS MACERATED. WOUND WAS CLEANSED WITH WOUND CLEANSER, PATTED DRY. APPLIED IODOSORB GEL INTO WOUND BED PER SCHOOL BUSINESS ADMINISTRATOR REQUEST. COVERED WITH ABD. DORSAL FOOT WOUND/INCISION. INCISION LINE WELL APPROXIMATED WITH SUTURES IN PLACE, MOST DISTAL ASPECT WITH MACERATION. ULCERATION MEASURES 1X1X3.2. MOIST, RED WOUND BED. MEDINA-WOUND IS MACERATED. CLEANSED WITH WOUND CLEASNER, PATTED DRY. PACKED WITH AQUACEL AG AND COVERED WITH 4X4. SECURED FOOT DRESSINGS WITH KERLIX THEN TOMAS WRAP. RECOMMEND NON-WEIGHT BEARING TO THE LEFT FOOT ENCOURAGE GOOD NUTRITION/HYDRATION FOR WOUND HEALING FOLLOW UP IN WOUND CENTER 03/14/19 1400 WITH NHUNG PENG BLOOD GLUCOSE CONTROL DAILY DRESSING CHANGES
--- NOTE | 2019-03-06 14:18 | NUR ---
SPOKE WITH CARLOZ/JUN SANTOYO.HOME. SHE SAID PT.S MEDICAL PATHOLOGY TEACHER CALLED HER TO TELL HER PT. IS BEING DISCHARGED. PT.DOES HAVE DISCHARGE ORDERS. CARLOZ SAID SHE WOULD START AUTHORIZATION PROCESS. CHART COPIED TO GO WITH PT. NURSING TO CALL REPORT ONCE AUTH RECEIVED. CM WILL DISCUSS WITH PT.
--- NOTE | 2019-03-06 15:14 | NUR ---
ASSUMED CARE OF PT AROUND [address] ROMERO CHANGED DRESSING TO LLE TODAY AND GAVE OK TO DC TO SNF. ORDERS OBTAINED AND PT WILL TRANSFER TO [facility] PER W/C VAN AROUND [phone]. REPORT CALLED TO ZHENG ANGEL AT [place] [facility] ALL CONCERNS ADDRESSED. CLWR. WCTM.
--- NOTE | 2019-03-06 15:40 | NUR ---
PT.HAS DISCHARGE ORDERS. CM SPOKE WITH DAUGHTER/DPOA,LISA,ON PHONE. ORIGINALLY SHE HAD PLANNED TO BRING FATHER HOME WITH HER,BUT SHE SAID HE HAS DECLINED. SHE WOULD LIKE HIM TO GO TO SNF INITIALLY AND THEN WILL BRING HIM HOME. SHE SAID IF HE CANNOT REHAB, SHE WOULD STILL BRING HIM HOME. SHE WOULD NOT PLACE HIM LTC IN A NH. SHE WOULD LIKE REFERRAL MADE TO [facility] AND [facility]. FAXED REFERRAL TO [facility] AND LEFT VM ON HER PHONE.
--- NOTE | 2019-03-07 13:51 | CON ---
[address] [address] CONSULTATION Name: MICKEY COLLADO Room: [address] IN M.R.#: [id number] Admission: 02/21/19 Attend Phys: Chris Hyde MD Discharge: 03/06/19 Date of : 52 Report #: [id number] THIS REPORT FOR: //name// CC: Chris Mcconnell DATE OF SERVICE: 02/22/2019 ADMISSION DIAGNOSES: 1. Septic arthritis, left second metatarsophalangeal joint. 2. Type 2 diabetes mellitus. HISTORY OF PRESENT ILLNESS: The patient is a 68-year-old female well known to me from prior hospital admission and outpatient wound care. She was admitted last night for worsening inflammation and pain to the left plantar foot wound. She states she picked the scab last week at the distal left second toe, and the toe subsequently turned black and the foot has become red and painful. She scratched. She has a chronic excoriation of both legs and she will pick any and she has a history of picking her wounds and scabs. She reports being treated at [facility], although I have not seen her for several months. She denies fevers, chills, nausea or malaise. Blood cultures have no growth x 2. She is on parenteral vancomycin 1.25 grams q. 12 hours per Infectious Disease. LABORATORY DATA: WBC 12.2, RBC 4.32, hemoglobin 11.3, hematocrit 34.3, platelets 338. BUN 10, creatinine 0.6, glucose 256. Albumin 2.5. PHYSICAL EXAMINATION: VITAL SIGNS: Temperature 98.3, pulse 99, respirations 18, blood pressure 181/80, previously 136/66. EXTREMITIES: Left distal foot is red, swollen and inflamed with penetrating ulceration to the base of the second toe leading to the metatarsophalangeal joint. The left second toe was black with dry gangrene and the foot is fluctuant with no crepitation. Scant serous drainage expressible from the plantar foot wound. No pallor, cyanosis or signs of acute vascular embarrassment. She has large excoriations to the anterior aspect of both shins. DIAGNOSTIC DATA: I reviewed x-rays, which show septic arthritis to the left second MTP joint with fragmentation of the proximal phalanx and lysis of the second metatarsal with subcutaneous emphysema. IMPRESSION: Septic arthritis with osteomyelitis, left second metatarsophalangeal joint, type 2 diabetes mellitus. PLAN: Schedule the patient for surgery tomorrow to [place] [address] CONSULTATION Name: MICKEY COLLADO Room: [address]#: [id number] Admission: 02/21/19 Attend Phys: Chris Hyde MD Discharge: 03/06/19 Date of : 52 Report #: [id number] resection and soft tissue debridement. The patient is to remain nonweightbearing in the interim. <ELECTRONICALLY SIGNED> By: Jv Zacarias DPM 03/07/19 1351 1756 [id number] Zacarias DPM /nt
--- NOTE | 2019-03-07 13:51 | CON ---
[address] [address] CONSULTATION Name: MICKEY COLLADO Room: [address] IN .R.#: [id number] Admission: 02/21/19 Attend Phys: Chris Hyde MD Discharge: 03/06/19 Date of : 52 Report #: [id number] THIS REPORT FOR: //name// CC: Chris Mcconnell DATE OF SERVICE: 03/05/2019 CHIEF COMPLAINT: Status post incision and drainage, left plantar foot with plantar fasciectomy and excision of the flexor digitorum brevis. HISTORY OF PRESENT ILLNESS: She has polymicrobial diabetic foot infection, status post recent partial second ray resection for osteomyelitis. She pulled her PICC line today, which was replaced. She remains on parenteral vancomycin, moderate pain lessened with hydrocodone. LABORATORY DATA: WBC 8.6, RBC 4.32, hemoglobin 11.0, hematocrit 34.2 and platelets 320. BUN 7, creatinine 0.5 and glucose 120. PHYSICAL EXAMINATION: Decreased inflammation to the left plantar dave-wound, fibro-necrotic slough to the wound interior with some malodor. No erythema or bucky cellulitis. No inflammation or erythema to the dorsal second ray resection site. No signs of acute vascular embarrassment. Overall, the foot is clinically improved. IMPRESSION: Deep tissue infection with osteomyelitis, left foot. PLAN: The wounds were cleansed, dried, and repacked with sterile gauze, covered with ABDs, Kerlix and Harpal wrap. The patient is to remain strictly nonweightbearing to the extremity. <ELECTRONICALLY SIGNED> By: Jv Zacarias DPM 03/07/19 1351 1740 1804Dtrang Zacarias DPM /nt
--- NOTE | 2019-03-07 13:51 | OP ---
[address] [address] OPERATIVE REPORT Name: MICKEY COLLADO Room: [address] IN M.R.#: [id number] Admission: 02/21/19 Attend Phys: Chris Hyde MD Discharge: 03/06/19 Date of : 52 Report #: [id number] THIS REPORT FOR: //name// CC: Chris Mcconnell DATE OF SERVICE: 03/03/2019 SURGEON: Jv Zacarias DPM PREOPERATIVE DIAGNOSIS: Deep tissue infection, left plantar foot. POSTOPERATIVE DIAGNOSIS: Deep tissue infection, left plantar foot. PROCEDURES: 1. Incision and drainage, left plantar foot. 2. Plantar fasciectomy with soft tissue debridement, left plantar foot. ANESTHESIA: General LMA. INJECTABLES: 30 mL of 0.5% Marcaine plain preoperatively. SPECIMENS: Left plantar fascia and associated soft tissue. CULTURES: Soft tissue, left foot, aerobic and anaerobic. ESTIMATED BLOOD LOSS: None. HEMOSTASIS: Left ankle pneumatic tourniquet at 250 mmHg. COMPLICATIONS: None. DESCRIPTION OF PROCEDURE: The patient was brought to the OR and placed on the table supine with induction of general LMA anesthesia. A well-padded left ankle pneumatic tourniquet was placed. A local anesthetic block was given to the left ankle. The extremity was prepped and draped aseptically. A dorsal extensile incision was created over the left plantar arch with electrocautery for hemostasis. The plantar fascia and extensor digitorum brevis muscle were sharply dissected with Metzenbaum scissors. A portion of tissue was sent for aerobic and anaerobic culture and the remaining portion sent for surgical pathology. The wound was flushed with sterile saline with bacitracin irrigant, dried and packed with Aquacel Ag and covered with Aquacel Ag, 4 x 4s, ABD, [place] [address] OPERATIVE REPORT Name: MICKEY COLLADO Room: [address]#: [id number] Admission: 02/21/19 Attend Phys: Chris Hyde MD Discharge: 03/06/19 Date of : 52 Report #: [id number] Kerlix and Harpal. The tourniquet was deflated with normal vascular return. The patient left the OR, alert and oriented with no pain or complications noted. <ELECTRONICALLY SIGNED> By: Jv Zacarias DPM 03/07/19 1351 0830 0839Jv Zacarias DPM /nt
--- NOTE | 2019-03-07 13:51 | CON ---
[address] [address] CONSULTATION Name: MICKEY COLLADO Room: [address] IN M.R.#: [id number] Admission: 02/21/19 Attend Phys: Chris Hyde MD Discharge: 03/06/19 Date of : 52 Report #: [id number] THIS REPORT FOR: //name// CC: Chris Mcconnell DATE OF SERVICE: 02/26/2019 CHIEF COMPLAINT: Postop day #3 for resection left distal third metatarsal and toe for osteomyelitis. Pain somewhat decreased. Surgical cultures growing gram-positive cocci. She is on parenteral vancomycin with good tolerance. She has been afebrile, normal appetite. Some nausea yesterday, likely from pain medication. No new labs for review. PHYSICAL EXAMINATION: The dorsal foot incision is well coapted with no dehiscence. The open surgical wound to the distal incision measures roughly 2.5 x 1.5 x 3.0 cm. There is no expressible drainage, no active bleeding. Low-grade inflammation much decreased since surgery. No pallor, cyanosis or signs of acute vascular embarrassment. Palpable pedal pulses to the left foot. Plantar forefoot painful to the touch. No other open lesions noted to the foot. IMPRESSION: Osteomyelitis with deep tissue infection, postoperative wound left foot, type 2 diabetes mellitus. PLAN: I debrided the interior of the wound with a sterile curette to remove some slough from the distal edge of the incision. This was a subcutaneous excisional wound debridement in the subcutaneous tissue layer. The wound was cleansed with wound cleanser and dried. It was packed with Aquacel Ag and covered with 4 x 4's, Kerlix and Harpal bandage. I wrote orders for physical therapy, weightbearing to left heel as tolerated for transfers. <ELECTRONICALLY SIGNED> By: Jv Zacarias DPM 03/07/19 1351 0729 0810Jv Zacarias DPM /nt
--- NOTE | 2019-03-07 13:51 | CON ---
[address] [address] CONSULTATION Name: MICKEY COLLADO Room: [address] IN M.R.#: [id number] Admission: 02/21/19 Attend Phys: Chris Hyde MD Discharge: 03/06/19 Date of : 52 Report #: [id number] THIS REPORT FOR: //name// CC: Chris Mcconnell DATE OF SERVICE: 02/27/2019 CHIEF COMPLAINT: Status post resection, left distal second metatarsal and second toe for osteomyelitis and deep tissue infection. Surgical cultures grew MRSA and group B streptococcus. She is on parenteral vancomycin with good tolerance. She remains nonweightbearing except partial weight to the forefoot transfers. She has been afebrile, stable appetite. Awaiting [facility] facility placement. PHYSICAL EXAMINATION: Decreased inflammation to the left dorsal foot, left plantar forefoot still fairly inflamed and painful to touch. Surgical incision well coapted with the distal surgical wound, remains open with no expressible fluid. No pallor, cyanosis or signs of acute vascular embarrassment. Three superficial wounds noted to left anterior leg present at time of admission. Right leg wrapped with Arsen and Kerlix. IMPRESSION: Osteomyelitis, left foot, status post ray resection. PLAN: The patient will require long-term parenteral antibiotics, offloading and wound care, will continue daily packing of the wound. Today, I cleansed the wound interior with wound cleanser and dried it. It was packed with gauze and the foot covered with ABDs, Kerlix and Harpal wrap. <ELECTRONICALLY SIGNED> By: Jv Zacarias DPM 03/07/19 1351 1759 0206Jv Zacarias DPM /nt
--- NOTE | 2019-03-07 13:51 | CON ---
[address] [address] CONSULTATION Name: MICKEY COLLADO Room: [address] IN .R.#: [id number] Admission: 02/21/19 Attend Phys: Chris Hyde MD Discharge: 03/06/19 Date of : 52 Report #: [id number] THIS REPORT FOR: //name// CC: Chris Mcconnell DATE OF SERVICE: 03/04/2019 CHIEF COMPLAINT: Postoperative day 1 for incision and drainage, left plantar foot with plantar fasciectomy. Recent surgical cultures from left second ray resection grew MRSA, group B streptococcus, Prevotella species and Finegoldia magna. She remains on parenteral vancomycin, relates moderate pain to the plantar foot. Had nausea preoperatively yesterday, resolving this morning. LABORATORY DATA: WBC 9.3, RBC 3.82, hemoglobin 10.0, hematocrit 30.2, platelets 335. BUN 7, creatinine 0.5, glucose 120, albumin 2.5. Hemoglobin A1c 9.7. PHYSICAL EXAMINATION: Inflammation to the left plantar arch incision is substantially decreased. The wound bed is a mixture of granulation with a pale slough. No active bleeding. The wound margins are intact with no pallor or cyanosis. Moderate inflammation along the plantar wound substantially decreased. A dorsal incision over the second ray resection site is well coapted with no inflammation. The remaining postoperative wound at the second toe disarticulation site has some pale slough with no active bleeding, drainage or inflammation. IMPRESSION: Osteomyelitis, left foot; abscess, left plantar foot; type 2 diabetes mellitus. PLAN: I debrided the wound to the dorsal second toe amputation site with a curette to remove subcutaneous tissue and slough. Scant bleeding was stopped with pressure and the wound was cleansed and packed with Aquacel Ag. This was a subcutaneous level of debridement. The plantar wound was cleansed, dried and packed with Aquacel Ag and covered with 4 x 4s, ABDs, Kerlix and Harpal bandage. The patient to remain strictly nonweightbearing to the left foot. We will continue daily cleansing and packing of the wounds. <ELECTRONICALLY SIGNED> By: Jv Zacarias DPM 03/07/19 1351 0950 1112Dtrang Zacarias DPM /nt
--- NOTE | 2019-03-07 13:51 | OP ---
[address] [address] OPERATIVE REPORT Name: MICKEY COLLDAO Room: [address].R.#: [id number] Admission: 02/21/19 Attend Phys: Chris Hyde MD Discharge: 03/06/19 Date of : 52 Report #: [id number] THIS REPORT FOR: //name// CC: Chris Mcconnell DATE OF SERVICE: 02/23/2019 SURGEON: Jv Zacarias DPM PREOPERATIVE DIAGNOSIS: Osteomyelitis, left second distal metatarsal with septic arthrosis to the metatarsophalangeal joint. POSTOPERATIVE DIAGNOSIS: Osteomyelitis, left second distal metatarsal with septic arthrosis to the metatarsophalangeal joint. PROCEDURES: 1. Resection of left distal second metatarsal and toe. 2. Incision and drainage, left foot. ANESTHESIA: MAC. INJECTABLES: 30 mL of 1:1 mixture of 0.5% Marcaine plain and 1% lidocaine plain. HEMOSTASIS: Left calf tourniquet at 275 mmHg. ESTIMATED BLOOD LOSS: Roughly 50 mL. SUTURES: 2-0 nylon. SPECIMENS: Left distal second metatarsal and second toe. CULTURES: 1. Bone, left second toe, aerobic and anaerobic. 2. Soft tissue, left foot, aerobic and anaerobic. COMPLICATIONS: None. DESCRIPTION OF PROCEDURE: The patient was brought to the OR and placed on the table supine with induction of MAC anesthesia. A well-padded calf tourniquet was placed and a local anesthetic block was given. The extremity was prepped and draped aseptically. After exsanguination and inflation of the tourniquet, a surgical scalpel was used to create a dorsal incision over the distal left second metatarsal and then circumferentially around the toe. The toe was disarticulated at the MTP joint and the [place] [address] OPERATIVE REPORT Name: MICKEY COLLADO Room: [address]#: [id number] Admission: 02/21/19 Attend Phys: Chris Hyde MD Discharge: 03/06/19 Date of : 52 Report #: [id number] dissected off the distal second metatarsal. Electrocautery was used for hemostasis. An oscillating saw was used to transect the proximal second metatarsal, which was then removed from the wound. The tendon and infected soft tissue was debrided from the wound, which was then flushed and dried. About 80% of the wound was sutured and the distal 20% left open and packed with Aquacel Ag. Foot was cleansed and dressed with Aquacel Ag, fluffs, ABDs, Kerlix, and Harpal. The patient left the OR with no pain or complications noted. A portion of proximal phalanx was sent for aerobic and anaerobic bone cultures. Soft tissue was sent for culture and the distal second metatarsal and toe were sent for pathology. <ELECTRONICALLY SIGNED> By: Jv Zacarias DPM 03/07/19 1351 1752 1846Jv Zacarias DPM /nt
--- NOTE | 2019-03-07 13:51 | CON ---
[address] [address] CONSULTATION Name: MICKEY COLLADO Room: [address] IN M.R.#: [id number] Admission: 02/21/19 Attend Phys: Chris Hyde MD Discharge: 03/06/19 Date of : 52 Report #: [id number] THIS REPORT FOR: //name// CC: Chris Mcconnell DATE OF SERVICE: 03/01/2019 CHIEF COMPLAINT: Status post left second ray resection for osteomyelitis with developing erythema to the left plantar forefoot. Surgical bone and tissue cultures grew MRSA and group B streptococcus. She is on parenteral vancomycin. No new labs for review. Awaiting long-term facility placement. PHYSICAL EXAMINATION: There is a large bulla to the left plantar central forefoot proximal to the second MTP region. The area is exquisitely painful to touch and there is high-grade erythema extending along the plantar medial arch. The area is fluctuant, no crepitation, exquisitely painful. I took a scalpel and lanced the bulla and roughly 5 mL of purulent drainage was expressed from both the proximal medial arch region and the distal forefoot. The wound did not appear to communicate with the surgical wound over the distal second metatarsal. I expressed purulence from the medial arch along, which corresponds to the course of the medial plantar fascia. The area was flushed. There is still a little red there. The area was flushed, dried and packed with [employer] Ag from the lanced bulla proximally along the medial arch. The surgical wound was cleansed and packed with Aquacel AG as well. The proximal sutures were intact with no dehiscence or signs of vascular compromise. IMPRESSION: Newly developed abscess, left plantar forefoot, recent osteomyelitis status post surgical resection. PLAN: I performed a bedside incision and drainage of the bulla and the plantar forefoot wound was irrigated and packed with Aquacel AG as noted above. The patient is to remain nonweightbearing. I will change her bandage tomorrow for further evaluation. <ELECTRONICALLY SIGNED> By: Jv Zacarias DPM 03/07/19 1351 1811 2338Daariana Zacarias DPM /nt
--- NOTE | 2019-03-07 13:51 | CON ---
[address] [address] CONSULTATION Name: MICKEY COLLADO Room: [address] IN .R.#: [id number] Admission: 02/21/19 Attend Phys: Chris Hyde MD Discharge: 03/06/19 Date of : 52 Report #: [id number] THIS REPORT FOR: //name// CC: Chris Mcconnell DATE OF SERVICE: 02/24/2019 CHIEF COMPLAINT: Postoperative day #1 for resection, left distal second metatarsal and toe for osteomyelitis. She relates low-grade pain well controlled with p.o. pain medicines. She has been afebrile, denies fevers, chills, nausea or malaise. She has remained nonweightbearing since surgery. PHYSICAL EXAMINATION: The incisions are well coapted with low-grade inflammation of the distal left foot. The open wound bed has some fibrous tissue with no active bleeding or expressible drainage. No acute signs of vascular embarrassment to the extremity. Negative Homans' and Grant sign of both legs palpable dorsalis pedis and posterior tibial pulse to the left foot. IMPRESSION: Osteomyelitis, type 2 diabetes mellitus. PLAN: The wound was cleansed, dried and repacked with Aquacel Ag and covered with ABDs, Kerlix and Harpal wrap. The patient to remain nonweightbearing to left foot, maximize glycemic control and nutrition. Awaiting surgical cultures, patient requires residential post discharge. <ELECTRONICALLY SIGNED> By: Jv Zacarias DPM 03/07/19 1351 0731 0756Jv Zacarias DPM /nt
--- NOTE | 2019-03-07 13:51 | CON ---
[address] [address] CONSULTATION Name: MICKEY COLLADO Room: [address] IN M.R.#: [id number] Admission: 02/21/19 Attend Phys: Chris Hyde MD Discharge: 03/06/19 Date of : 52 Report #: [id number] THIS REPORT FOR: //name// CC: Chris Mcconnell DATE OF SERVICE: 03/02/2019 CHIEF COMPLAINT: Recently developed an abscess to the left plantar forefoot with extension along the medial plantar arch. I performed a bedside incision and drainage and soft tissue debridement last night, and the plantar foot wound was irrigated and packed with Aquacel Ag. She is on parenteral vancomycin. Prior cultures grew group B streptococcus and MRSA. LABORATORY DATA: No new labs for review. PHYSICAL EXAMINATION: Inflammation is mildly decreased since last night. The plantar foot wound is still exquisitely painful to touch. I am able to express a small amount of purulent type drainage. The erythema extending along the plantar medial arch is less, but still well defined. There is some visible necrotic tissue at the base of the incision and drainage site near the plantar second MTP region. PLAN: The patient to the OR in the morning for surgical debridement. She requires an extensile incision of the plantar foot with soft tissue debridement and open packing. Likely requires plantar fascia and some tendon excision. <ELECTRONICALLY SIGNED> By: Jv Zacarias DPM 03/07/19 1351 1248 2135Jv Zacarias DPM /bella
== END 2019-03-06 16:30 | DRG 853 ==
LOC: M.ERS 17:28 → M.ORTHSURG 18:39 → M.TBA-ER 18:39 → M.ORTHSURG 20:11
PROVIDERS: Family Medicine; Internal Medicine; Personal Emergency Response Attendant; ADMIT Internal Medicine
PROC: 0Y6N0ZB Detachment at Left Foot, Partial 2nd Ray, Open Approach (ICD-10-PCS; 2019-02-23)
PROC: 0JBR0ZZ Excision of Left Foot Subcutaneous Tissue and Fascia, Open Approach (ICD-10-PCS; 2019-02-26)
PROC: 02HV33Z Insertion of Infusion Device into Superior Vena Cava, Percutaneous Approach (ICD-10-PCS; principal; 2019-03-01)
PROC: B548ZZA Ultrasonography of Superior Vena Cava, Guidance (ICD-10-PCS; principal; 2019-03-01)
PROC: 0Y9N0ZZ Drainage of Left Foot, Open Approach (ICD-10-PCS; principal; 2019-03-01)
PROC: 0J8R0ZZ Division of Left Foot Subcutaneous Tissue and Fascia, Open Approach (ICD-10-PCS; 2019-03-03)
PROC: 0JBR0ZZ Excision of Left Foot Subcutaneous Tissue and Fascia, Open Approach (ICD-10-PCS; 2019-03-04)
DX: A41.9 Sepsis, unspecified organism (principal); E43 Unspecified severe protein-calorie malnutrition; E11.52 Type 2 diabetes mellitus with diabetic peripheral angiopathy with gangrene; I96 Gangrene, not elsewhere classified; M86.8X7 Other osteomyelitis, ankle and foot; M00.9 Pyogenic arthritis, unspecified; L02.612 Cutaneous abscess of left foot; L97.829 Non-pressure chronic ulcer of other part of left lower leg with unspecified severity; L97.819 Non-pressure chronic ulcer of other part of right lower leg with unspecified severity; E11.621 Type 2 diabetes mellitus with foot ulcer; L03.032 Cellulitis of left toe; E11.69 Type 2 diabetes mellitus with other specified complication; I10 Essential (primary) hypertension; E11.65 Type 2 diabetes mellitus with hyperglycemia; L97.529 Non-pressure chronic ulcer of other part of left foot with unspecified severity; B95.62 Methicillin resistant Staphylococcus aureus infection as the cause of diseases classified elsewhere; B95.1 Streptococcus, group B, as the cause of diseases classified elsewhere; F30.8 Other manic episodes; M72.2 Plantar fascial fibromatosis; E11.42 Type 2 diabetes mellitus with diabetic polyneuropathy; Z86.73 Personal history of transient ischemic attack (TIA), and cerebral infarction without residual deficits; Z98.42 Cataract extraction status, left eye; Z98.41 Cataract extraction status, right eye; Z79.899 Other long term (current) drug therapy; Z88.0 Allergy status to penicillin; Z88.1 Allergy status to other antibiotic agents; Z91.040 Latex allergy status; Z79.4 Long term (current) use of insulin; Z79.2 Long term (current) use of antibiotics; Z80.9 Family history of malignant neoplasm, unspecified; Z82.49 Family history of ischemic heart disease and other diseases of the circulatory system; Z79.84 Long term (current) use of oral hypoglycemic drugs; Z88.2 Allergy status to sulfonamides; Z68.31 Body mass index [BMI] 31.0-31.9, adult

== ENCOUNTER 2019-03-08 16:27 | Inpatient (IN) | payer OTHER, MEDICAID ==
[~2019-03-08] VITALS: Ht 160 cm; Wt 72.6 kg
[~2019-03-08 16:27] MED LIST changes: +NEURONTIN 400400 M1 PO; +TRAMADOL 50 MG50 MG PO; +VANCO 1.251.25 GM/25 IVPB
[2019-03-08 16:30] VITALS: BP 152/71
[2019-03-08 18:36] LABS: ABSOLUTE BASOPHILS 0.1 thou/uL (0.0-0.2); ABSOLUTE EOSINOPHILS 0.2 thou/uL (0.0-0.7); ABSOLUTE LYMPHOCYTES 1.6 thou/uL (0.8-5.3); ABSOLUTE MONOCYTES 0.6 thou/uL (0.0-1.2); ABSOLUTE NEUTROPHILS 8.5 thou/uL (1.6-8.1); BASOPHILS 0.8 %; EOSINOPHILS 1.4 %; HEMATOCRIT 34.6 % (37.0-47.0); HEMOGLOBIN 11.3 gm/dL (12.0-15.0); LYMPHOCYTES 14.4 %; MCHC 32.6 g/dL (28.0-37.0); MCV 79.7 fL (80.0-100.0); MONOCYTES 5.5 %; MPV 6.4 fl. (7.2-11.1); NUCLEATED RBCS 0 /100WBC; PLATELET COUNT* 364 thou/uL (150-400); POLYS 77.9 %; RBC 4.34 mil/uL (4.20-5.00); RDW-CV 15.5 % (10.5-14.5)
[2019-03-08 18:55] LABS: CALCIUM 8.4 mg/dL (8.5-10.1); CREATININE 0.7 mg/dL (0.6-1.3); POTASSIUM 3.6 mmol/L (3.5-5.1)
[2019-03-08 19:00] LABS: ALBUMIN 2.3 g/dL (3.4-5.0); TOTAL BILIRUBIN 0.2 mg/dL (<0.1-1.0); TOTAL PROTEIN 6.6 g/dL (6.4-8.2)
[2019-03-08 20:06] VITALS: BP 110/52
[2019-03-08 20:10] VITALS: BP 134/69
[2019-03-09 04:22] LABS: HEMATOCRIT 29.1 % (37.0-47.0); HEMOGLOBIN 9.5 gm/dL (12.0-15.0); MCHC 32.5 g/dL (28.0-37.0); MCV 79.8 fL (80.0-100.0); MPV 6.6 fl. (7.2-11.1); RBC 3.64 mil/uL (4.20-5.00); RDW-CV 15.6 % (10.5-14.5); WBC 8.1 thou/uL (4.0-11.0)
[2019-03-09 04:39] LABS: ALBUMIN 1.9 g/dL (3.4-5.0); CALCIUM 7.5 mg/dL (8.5-10.1); CREATININE 0.7 mg/dL (0.6-1.3); TOTAL BILIRUBIN 0.1 mg/dL (<0.1-1.0); TOTAL PROTEIN 5.3 g/dL (6.4-8.2)
[2019-03-09 10:15] VITALS: BP 178/97
--- NOTE | 2019-03-09 11:10 | EKG ---
[place] [address] ELECTROCARDIOGRAM REPORT Name: MICKEY COLLADO Room: [address] IN ..#: [id number] Admission: 03/08/19 Attend Phys: Gregory Ahumada Discharge: Date of : 52 Report #: [id number] THIS REPORT FOR: //name// [facility] ED Test Date: 2019-03-08 Test Time: 16:52:48 Pat Name: MICKEY COLLADO Department: Room: [facility] Gender: F Temperature Regulator Pyrometer: : 1950 Requested By: Shayy Almonte Order Number: [id number] MD: Niall Pool Measurements Intervals Russell Rate: 111 P: 60 IN: 123 QRS: 92 QRSD: 81 T: -62 QT: 354 QTc: 481 Interpretive Statements Sinus tachycardia with short pr interval Multiform ventricular premature complexes Right axis deviation Borderline T abnormalities, diffuse leads Compared to ECG 02/21/2019 18:45:44 no change Electronically Signed On 03-09-2019 11:09:21 PROVISIONING SPECIALIST by Niall Pool [email or web address] <ELECTRONICALLY SIGNED> By: Niall Pool MD, FAC 03/09/19 1109 1652 1652 Niall Pool MD, [facility] /EPI
[2019-03-09 18:46] VITALS: BP 210/112
[2019-03-10] VITALS: BP 189/95
[2019-03-10 04:00] VITALS: BP 123/99
[2019-03-10 08:05] VITALS: BP 168/78
--- NOTE | 2019-03-10 15:13 | OP ---
[facility] [address] [place] [address] OPERATIVE REPORT Name: MICKEY COLLADO Room: [address] IN .R.#: [id number] Admission: 03/08/19 Attend Phys: Gregory Ahumada Discharge: Date of : 52 Report #: [id number] THIS REPORT FOR: //name// CC: Jv Vasquez DATE OF SERVICE: 03/09/2019 SURGEON: Jv aZcarias DPM. PREOPERATIVE DIAGNOSIS: Deep tissue infection with likely osteomyelitis, left foot. POSTOPERATIVE DIAGNOSIS: Deep tissue infection with likely osteomyelitis, left foot. PROCEDURE: 1. Resection, left residual second metatarsal. 2. Incision and drainage, left foot. 3. Soft tissue debridement, left foot. CULTURES: Soft tissue, left foot; aerobic and anaerobic. PATHOLOGY: left proximal 2nd metatarsal. ESTIMATED BLOOD LOSS: Roughly 20 mL. HEMOSTASIS: Left ankle pneumatic tourniquet at 250 mmHg. COMPLICATIONS: None. DESCRIPTION OF PROCEDURE: The patient brought to the OR and placed on the table supine with induction of MAC anesthesia. A well-padded left ankle pneumatic tourniquet was placed and a local anesthetic block was given to the left foot. Extremity was prepped and draped aseptically with exsanguination and inflation of tourniquet. The sutures overlying the previous partial second ray resection site were removed and a new incision was created through the prior one. Electrocautery was used for hemostasis and anatomic dissection was carried out down to the residual base of second metatarsal, which was disarticulated from the intermediate cuneiform bone and sent for pathology. There was necrosis at the plantar distal aspect of this wound and I excised that portion out through the plantar foot to include the skin underneath the region of the plantar forefoot. I debrided infected muscle, tendon and soft tissue in the space where the second metatarsal had been. There was infection [place] [address] OPERATIVE REPORT Name: MICKEY COLLADO Room: [address] IN [facility].#: [id number] Admission: 03/08/19 Attend Phys: Gregory Ahumada Discharge: Date of : 52 Report #: [id number] capsule at the lateral aspect of the first metatarsophalangeal joint. There is no visible bone at the adjacent first or third metatarsophalangeal joints. I then directed attention to the plantar foot and performed a wedge excision of the infected necrotic tissue along the central arch. This was the site of the prior surgical debridement. Once this tissue was excised, the wound communicated with the dorsal wound, and I completed the surgery by removing the intervening skin flap between the dorsal and plantar surgical wounds. The wound was flushed with 1 liter of sterile saline with bacitracin irrigant and dried, was then packed with Iodosorb and Aquacel Ag. The foot was covered with fluffs, ABDs, Kerlix and Harpal bandage. The tourniquet was deflated and the patient left the OR with no pain or complications noted. <ELECTRONICALLY SIGNED> By: Jv Zacarias DPM 03/10/19 1513 21 1939Jv Zacarias DPM /nt
[2019-03-10 16:00] VITALS: BP 160/63; BP 160/79
[2019-03-10 20:10] VITALS: BP 147/77
[2019-03-11 04:37] LABS: HEMATOCRIT 27.5 % (37.0-47.0); HEMOGLOBIN 9.1 gm/dL (12.0-15.0); MCH 26.1 pg (26.0-34.0); MCHC 32.9 g/dL (28.0-37.0); MCV 79.3 fL (80.0-100.0); MPV 6.9 fl. (7.2-11.1); RBC 3.47 mil/uL (4.20-5.00); RDW-CV 15.9 % (10.5-14.5); WBC 9.2 thou/uL (4.0-11.0)
[2019-03-11 05:08] LABS: CALCIUM 7.7 mg/dL (8.5-10.1); CREATININE 0.6 mg/dL (0.6-1.3); MAGNESIUM 1.4 mg/dL (1.8-2.4); POTASSIUM 3.1 mmol/L (3.5-5.1); TOTAL BILIRUBIN 0.2 mg/dL (<0.1-1.0); TOTAL PROTEIN 5.7 g/dL (6.4-8.2)
[2019-03-11 07:35] VITALS: BP 165/84
[2019-03-11 16:47] VITALS: BP 159/83
[2019-03-11 20:00] VITALS: BP 167/86
[2019-03-12 02:29] LABS: HEMATOCRIT 27.1 % (37.0-47.0); HEMOGLOBIN 8.8 gm/dL (12.0-15.0); MCH 25.5 pg (26.0-34.0); MCHC 32.3 g/dL (28.0-37.0); MCV 78.9 fL (80.0-100.0); MPV 6.8 fl. (7.2-11.1); RBC 3.44 mil/uL (4.20-5.00); RDW-CV 15.9 % (10.5-14.5); WBC 7.6 thou/uL (4.0-11.0)
[2019-03-12 02:38] LABS: CALCIUM 7.8 mg/dL (8.5-10.1); CREATININE 0.5 mg/dL (0.6-1.3); MAGNESIUM 1.4 mg/dL (1.8-2.4); POTASSIUM 3.4 mmol/L (3.5-5.1); TOTAL BILIRUBIN 0.2 mg/dL (<0.1-1.0); TOTAL PROTEIN 5.7 g/dL (6.4-8.2)
[2019-03-12 08:05] VITALS: BP 161/80
[2019-03-12 08:38] LABS: CALCIUM 7.6 mg/dL (8.5-10.1); CREATININE 0.5 mg/dL (0.6-1.3); MAGNESIUM 1.4 mg/dL (1.8-2.4); POTASSIUM 3.9 mmol/L (3.5-5.1); TOTAL BILIRUBIN 0.2 mg/dL (<0.1-1.0); TOTAL PROTEIN 5.9 g/dL (6.4-8.2)
[2019-03-12 16:00] VITALS: BP 173/92
[2019-03-12 20:30] VITALS: BP 165/75
[2019-03-13 08:00] VITALS: BP 156/75
[2019-03-13 16:42] VITALS: BP 148/70
[2019-03-13 21:00] VITALS: BP 183/82
[2019-03-14 00:09] VITALS: BP 155/91
[2019-03-14 04:45] LABS: HEMATOCRIT 29.5 % (37.0-47.0); HEMOGLOBIN 9.7 gm/dL (12.0-15.0); MCH 25.7 pg (26.0-34.0); MCV 77.8 fL (80.0-100.0); MPV 6.5 fl. (7.2-11.1); RBC 3.79 mil/uL (4.20-5.00); RDW-CV 15.4 % (10.5-14.5)
[2019-03-14 04:56] LABS: ALBUMIN 2.2 g/dL (3.4-5.0); CALCIUM 7.9 mg/dL (8.5-10.1); CREATININE 0.5 mg/dL (0.6-1.3); MAGNESIUM 1.5 mg/dL (1.8-2.4); TOTAL BILIRUBIN 0.2 mg/dL (<0.1-1.0); TOTAL PROTEIN 5.7 g/dL (6.4-8.2)
[2019-03-14 08:20] VITALS: BP 169/75
--- NOTE | 2019-03-14 10:25 | PATH ---
[address] [address] PATHOLOGY RPT PROCEDURE Name: MICKEY COLLADO Room: [address] IN M.R.#: [id number] Admission: 03/08/19 Date of : 52 Discharge: Report #: [id number] Path Case #: [id number] L[facility] Accession Number: [id number] . 01 Material submitted: . foot - LEFT SECOND METATARSAL. Modifiers: left . 01 Clinical history: . Osteomyelitis with the deep tissue infection . 02 Diagnosis: Left second metatarsal: - Benign osteocartilaginous segment with evidence of osteomyelitis and prominent osteoblastic activity at one end, with opposite end (cartilaginous/articular end) free of osteomyelitis. . (MIRELLA:mm; 03/13/2019) [facility] 03/13/2019 160 Local . 02 Electronically signed: . Jairo Small MD, Pathologist NPI- [id number] . 01 Gross description: . The specimen is received in formalin, labeled "Mickey Collado, left second metatarsal". Received is a segment of bone with attached soft tissue measuring 4.1 x 1.9 x 1.3 cm in greatest dimensions. One margin is smooth and slightly concave in appearance, consistent with disarticulation, and the opposite margin is blunt in appearance, consistent with transection. The transected margin is inked black. A full-thickness longitudinal cross-section submitted from transected to disarticulated aspects in cassettes A1 and A2, following decalcification. (CAA; 03/12/2019) QAC/QAC 03/12/2019 1318 Local . 02 Pathologist provided ICD-10: M86.172 . 02 CPT . 266054, 919949 Specimen Comment: A courtesy copy of this report has been sent to [phone] Specimen Comment: Report sent to Specimen Comment: A duplicate report has been generated due to demographic updates. Performed at: [address], [place] [id number] MD Ronald Jansen MD Phone: [phone] [place] [address] PATHOLOGY RPT PROCEDURE Name: MICKEY COLLADO Room: [address] IN .R.#: [id number] Admission: 03/08/19 Date of : 52 Discharge: Report #: [id number] Path Case #: [id number] Performed at: [facility] [address] [place] [id number] MD Jairo Small MD Phone: [phone]
[2019-03-14 16:00] VITALS: BP 158/72
[2019-03-14 21:00] VITALS: BP 187/85
[2019-03-15 06:55] LABS: MAGNESIUM 1.5 mg/dL (1.8-2.4); POTASSIUM 3.5 mmol/L (3.5-5.1)
[2019-03-15 07:50] VITALS: BP 195/92
[2019-03-15 16:00] VITALS: BP 171/86
[2019-03-15 19:30] VITALS: BP 175/76
[2019-03-16 12:36] VITALS: BP 175/76
[2019-03-16 14:59] VITALS: BP 175/76
--- NOTE | 2019-03-21 15:39 | CON ---
[facility] [address] [place] [address] CONSULTATION Name: MICKEY COLLADO Room: [address] IN M.R.#: [id number] Admission: 03/08/19 Attend Phys: Gregory Ahumada Discharge: 03/16/19 Date of : 52 Report #: [id number] THIS REPORT FOR: //name// CC: Jv Vasquez DATE OF SERVICE: 03/13/2019 CHIEF COMPLAINT: Followup of left postoperative foot with deep tissue infection and second metatarsectomy for osteomyelitis. She relates moderate pain at a 6/10. She has had some nausea this morning and received Zofran. We will perform bedside primary closure of the dorsal surgical wound under local anesthesia. PHYSICAL EXAMINATION: No erythema or cardinal signs of infection to the skin. The wound interior has red granulation with several focal areas of fibro-necrosis at the plantar proximal aspect. Overall, significantly improved, mild serous drainage on her bandage, no active bleeding. The foot is warm with palpable left dorsalis pedis and posterior tibial pulses, no pallor, callus, cyanosis or signs of acute vascular embarrassment. IMPRESSION: Deep tissue infection with osteomyelitis, left foot, status post surgical debridement x 3. PLAN: A local anesthetic block was administered across the left dorsal foot with 1% lidocaine plain to total 20 mL. Anesthesia was checked and adequate. 2-0 nylon was used in simple interrupted fashion to reapproximate the dorsal wound leaving the proximal 1 cm of the incision open to be packed for drainage. The plantar wound was thoroughly cleansed with wound cleanser, dried and packed with Aquacel Ag. The foot was wrapped with ABDs, Kerlix and Harpal bandage. The patient tolerated the procedure with no complications. <ELECTRONICALLY SIGNED> By: Jv Zacarias DPM 03/21/19 1539 [id number] [id number] Zacarias DPM /nt
--- NOTE | 2019-03-21 15:39 | CON ---
[address] [address] CONSULTATION Name: MICKEY COLLADO Room: [address] IN .R.#: [id number] Admission: 03/08/19 Attend Phys: Gregory Ahumada Discharge: 03/16/19 Date of : 52 Report #: [id number] THIS REPORT FOR: //name// CC: Jv Vasquez DATE OF SERVICE: 03/10/2019 CHIEF COMPLAINT AND HISTORY OF PRESENT ILLNESS: Postoperative day #1 for excision of remaining proximal left second metatarsal with extensive soft tissue debridement for deep tissue infection. Yesterday's surgical cultures are pending as well as pathology to the second metatarsal. She is receiving vancomycin and ceftriaxone, has remained afebrile since hospital admission. Admission blood cultures no growth thus far. Moderate pain, controlled with medication, currently at a 6/10. She has remained nonweightbearing as instructed. LABORATORY DATA: WBC 8.1, RBC 3.64, hemoglobin 9.5, hematocrit 29.1, and platelets 276. BUN 12 and creatinine 0.7. PHYSICAL EXAMINATION: Inflammation substantially decreased with no bucky erythema or cellulitis. There is no malodor, and the surgical wounds have red tissue with minimal slough. There is no active bleeding, the medial and lateral aspects of the foot have immediate capillary refill with no pallor, cyanosis, or signs of acute vascular embarrassment. Her foot is warm with good color and temperature. Her foot is basically split in a cleft through the second intermetatarsal space and the space of the second metatarsal least occupied. IMPRESSION: Status post resection, left proximal second metatarsal and deep tissue resection for severe foot infection. PLAN: I removed the foot packing and cleansed the foot. The wound was thoroughly lavaged and dried. It was packed with Aquacel Ag and covered with ABDs, Kerlix, and Harpal bandage. She is to remain strictly nonweightbearing to the foot. My thoughts at this point are to take her back to the OR in the near future and place some retention sutures to bring the medial and lateral foot closer together to facilitate granulation bridging. Anticipate wound VAC use with likely advanced tissue modalities as an outpatient. <ELECTRONICALLY SIGNED> By: Jv Zacarias DPM 03/21/19 1539 1505 [id number] Zacarias DPM /nt
--- NOTE | 2019-03-21 15:39 | CON ---
[address] [place] [address] CONSULTATION Name: MICKEY COLLADO Room: [address] IN M.R.#: [id number] Admission: 03/08/19 Attend Phys: Gregory Ahumada Discharge: 03/16/19 Date of : 52 Report #: [id number] THIS REPORT FOR: //name// CC: Jv Vasquez DATE OF SERVICE: 03/16/2019 SUBJECTIVE: The patient is being discharged at [facility] today. Nausea and foot pain slightly decreased. No new labs for review. PHYSICAL EXAMINATION: Sutures intact across the dorsal incision with no inflammation. The plantar foot wound has increased granulation and less slough. There is no pallor, cyanosis or signs of acute vascular embarrassment. No bucky cellulitis. Wound margins have immediate capillary refill with palpable dorsalis pedis and posterior tibial pulses. IMPRESSION: Osteomyelitis, left foot, status post total second ray resection and plantar fasciectomy. PLAN: The wound was cleansed, dried and dressed with Aquacel Ag, ABDs, Kerlix and Harpal. I recommend wound vacuum to facilitate granulation of the plantar foot wound. I will follow up with her after she is discharged from the [facility]. <ELECTRONICALLY SIGNED> By: Jv Zacarias DPM 03/21/19 1539 1337 [id number] Zacarias DPM /bella
--- NOTE | 2019-03-21 15:39 | CON ---
[facility] [address] [place] [address] CONSULTATION Name: MICKEY COLLADO Room: [address] IN M.R.#: [id number] Admission: 03/08/19 Attend Phys: Gregory Ahumada Discharge: 03/16/19 Date of : 52 Report #: [id number] THIS REPORT FOR: //name// CC: vJ Vasquez DATE OF SERVICE: 03/11/2019 CHIEF COMPLAINT: Status post incision and drainage, left foot with metatarsectomy. HISTORY OF PRESENT ILLNESS: Her pain is decreased, surgical cultures pending. She remains on parenteral vancomycin and ceftriaxone. She has had some nausea today. LABORATORY DATA: WBC 9.2, RBC 3.47, hemoglobin 9.1, hematocrit 27.5, platelets 271. BUN 9, creatinine 0.6, glucose 119. PHYSICAL EXAMINATION: No inflammation or signs of cellulitis to the foot. No odor or necrosis. The surgical wound has red granulation with sparse areas of fibrosis and slough. No pallor, cyanosis or signs of acute vascular embarrassment. The periwound margins are intact with no necrosis or delayed capillary refill. Overall, clinically improved. IMPRESSION: Deep tissue infection with osteomyelitis, left foot, status post surgical debridement x 3. PLAN: The wound was cleansed, dried and packed with Aquacel Ag and covered with 4 x 4s, ABDs, Kerlix and Harpal bandage. The patient to remain strictly nonweightbearing to the extremity. We will plan retention sutures for reapproximation of at least of the dorsal wound with a future wound VAC used for the plantar wound. <ELECTRONICALLY SIGNED> By: Jv Zacarias DPM 03/21/19 1539 [id number] [id number] Zacarias DPM /nt
--- NOTE | 2019-03-21 15:39 | CON ---
[address] [address] CONSULTATION Name: MICKEY COLLADO Room: [address] IN M.R.#: [id number] Admission: 03/08/19 Attend Phys: Gregory Ahumada Discharge: 03/16/19 Date of : 52 Report #: [id number] THIS REPORT FOR: //name// CC: Jv Vasquez DATE OF SERVICE: 03/12/2019 CHIEF COMPLAINT: Followup of left foot surgery, surgical cultures and pathology pending. She is on parenteral vancomycin and ceftriaxone. She relates low-grade pain, well controlled with p.o. Tramadol. She has remained nonweightbearing. LABORATORY DATA: WBC 7.6, RBC 3.44, hemoglobin 8.8, hematocrit 27.1, platelets 245, BUN 5, creatinine 0.5, glucose 139. Albumin 2.0. PHYSICAL EXAMINATION: The dressing is dry, clean and intact with no strikethrough. PLAN: Tomorrow morning plan primary closure of the dorsal foot wound with retention sutures under local anesthesia at bedside. <ELECTRONICALLY SIGNED> By: Jv Zacarias DPM 03/21/19 1539 [id number] Zacarias DPM /nt
== END 2019-03-16 15:00 | DRG 853 ==
LOC: M.ERS 16:27 → M.3W 18:51 → M.TBA-ER 18:51 → M.3W 20:00
PROVIDERS: Internal Medicine; Nurse Practitioner Family; ADMIT Internal Medicine
PROC: 0QTP0ZZ Resection of Left Metatarsal, Open Approach (ICD-10-PCS; principal; 2019-03-09)
PROC: 05HY33Z Insertion of Infusion Device into Upper Vein, Percutaneous Approach (ICD-10-PCS; 2019-03-10)
DX: A41.9 Sepsis, unspecified organism (principal); E43 Unspecified severe protein-calorie malnutrition; L03.116 Cellulitis of left lower limb; M86.8X7 Other osteomyelitis, ankle and foot; L02.611 Cutaneous abscess of right foot; E11.69 Type 2 diabetes mellitus with other specified complication; B95.61 Methicillin susceptible Staphylococcus aureus infection as the cause of diseases classified elsewhere; B95.1 Streptococcus, group B, as the cause of diseases classified elsewhere; Z86.73 Personal history of transient ischemic attack (TIA), and cerebral infarction without residual deficits; Z98.42 Cataract extraction status, left eye; Z98.41 Cataract extraction status, right eye; Z88.0 Allergy status to penicillin; Z88.2 Allergy status to sulfonamides; Z91.040 Latex allergy status; Z89.422 Acquired absence of other left toe(s); Z68.28 Body mass index [BMI] 28.0-28.9, adult

== ENCOUNTER 2019-04-14 19:45 | Inpatient (IN) | payer OTHER, MEDICAID ==
[~2019-04-14] VITALS: Ht 160 cm; Wt 75.5 kg
--- NOTE | ~2019-04-14 | CON ---
[address] [address] CONSULTATION Name: MICKEY COLLADO Room: [address] IN .R.#: [id number] Admission: 04/14/19 Attend Phys: Gustavo Shay MD Discharge: Date of : 52 Report #: [id number] THIS REPORT FOR: //name// cc: Claudia Mcconnell Maggie M. DO ~ THIS REPORT FOR: //name// CC: Gustavo Mcconnell CARDIOLOGY CONSULTATION HISTORY OF PRESENT ILLNESS: I was asked by Dr. Shay to see this 68-year-old white female in cardiology consultation for evaluation and treatment of acute CHF. This lady does not have a clear cut history of CHF, although she tells me her primary care doctor in [place] or [place] told her a couple of years ago, she had heart failure, but she says nothing was really done about it. It is not clear she even got diuretics. She did have an echocardiogram done in 2018 that showed normal systolic function with ejection fraction greater than 70% with mild or grade 1 diastolic dysfunction. This lady was short of breath for 2 days before coming into the Emergency Room yesterday with shortness of breath. Additionally, she has chest discomfort. She is unfortunately a poor historian. She has what she describes as a chest discomfort that she has difficulty characterizing it lasts for a minute, on and off she had some last week. She has some sort of pills that seemed to help it. It is not particularly worse with activity or better with rest. It typically occurs at rest. There is associated shortness of breath. She has also had some nausea and upset stomach with some bowel issues. She does have orthopnea, but not paroxysmal nocturnal dyspnea. She has not had any edema. She does not have dyspnea on exertion because she cannot really walk. She has a diabetic foot. She has not had syncope or near syncope. Coronary risk factors include hypercholesterolemia, diabetes and high blood pressure. There is no family history of heart disease, not had renal disease or peripheral vascular disease. She did have a stroke in 2014 with residual what she describes as movement issues in her left arm. She has not had claudication. She does have issues with sores on her feet. She had surgery recently with sore left foot. She has gotten a lot of IV fluids she said since February when she had surgery. She has been in [facility]. She had a toe amputated as well. She had an infection of the toe. ALLERGIES: SHE IS ALLERGIC TO SULFA, PENICILLIN AND LATEX. MEDICATIONS: Her medications that are listed when she came in as being home medications include vitamin D 1000 units daily, fish oil 1000 mg daily, levothyroxine 88 mg daily, metformin 1000 mg b.i.d., tramadol 50 mg p.r.n. and a cholesterol medicine that she [place] [address] CONSULTATION Name: MICKEY COLLADO Room: [address] IN [facility].#: [id number] Admission: 04/14/19 Attend Phys: Gustavo Shay MD Discharge: Date of : 52 Report #: [id number] FAMILY HISTORY: There is no family history of heart disease or sudden . SOCIAL HISTORY: She is single. She is retired, does not smoke, drink or use illegal drugs. REVIEW OF SYSTEMS: Positive for cough, chest tightness or discomfort, shortness of breath with exercise, shortness of breath lying down, waking up short of breath. She has diabetes, SEASONAL ALLERGIES, MEDICAL ALLERGIES, PENICILLIN ALLERGY and other allergies. She wears glasses. Otherwise, review of systems is negative for some 35 different complaints in 14 different system categories. Please see review of system form for details and negatives in review of systems. PHYSICAL EXAMINATION: GENERAL: She presents as a well-developed, well-nourished white female, in no acute distress. VITAL SIGNS: Her pulse was 86 and regular, blood pressure is 164/85, respirations were 19, temperature is 97.4, O2 sat most recently on oxygen was 96. Off oxygen was 84. HEENT: Her head was atraumatic. Eyes clear. NECK: Supple. There is no jugular venous distention or hepatojugular reflux. Thyroid not enlarged. There is no adenopathy. SKIN: Warm and dry. Mucous membranes are moist. LUNGS: Reveal rales in both bases. There were decreased breath sounds diffusely and an increased expiratory phase. HEART: Examination of the heart revealed somewhat distant first and second heart sound. There were no murmurs, rubs, thrills, heaves or gallops. PMI is not displaced. ABDOMEN: Soft, flat and nontender. No palpable masses, no organomegaly. EXTREMITIES: Reveal no cyanosis, clubbing or edema. NEUROLOGIC: The patient mentated normally, talked normally, moved all extremities normally. She is 5 feet 3 inches tall, weight 165 pounds. GENITOURINARY: Note that she was diuresed last night and feels a lot better today. LABORATORY DATA: Troponins were negative x 3 and NT-proBNP initially was 232.1. Her chest x-ray shows probable mild congestive heart failure with probable mild cardiomegaly. A CT of the chest was done to assess for pulmonary emboli. None was seen. The CT was also read as showing bilateral lower lobe atelectasis and pleural effusions and evidence of chronic congestive heart failure and pulmonary edema. IMPRESSION: 1. Acute and possibly chronic congestive heart failure, likely diastolic. 2. Hypercholesterolemia. 3. Non-[place] [address] CONSULTATION Name: MICKEY COLLADO Room: [address]#: [id number] Admission: 04/14/19 Attend Phys: Gustavo Shay MD Discharge: Date of : 52 Report #: [id number] 4. Status post cerebrovascular accident. 5. Chest discomfort that is difficult to assess. 6. Hypothyroidism. RECOMMENDATION: Please see my orders. She should get an echo. Diuresis should be continued. Follow her electrolytes, BNP and magnesium frequently. I would restrict her sodium to 2 grams daily and I check I's and O's and daily weights carefully and get a Lexiscan Cardiolite stress test for her chest discomfort, especially in the context of new onset congestive heart failure. Thank you very much for asking me to see the patient. If there are any questions, please feel free to contact me. By: [id number]. Yassine Acuna MD, FACC /nt
[~2019-04-14 19:45] MED LIST changes: +VITAMIN D32000 UNI2 PO
[2019-04-14 19:48] VITALS: BP 151/65
[2019-04-14 20:50] LABS: ABSOLUTE BASOPHILS 0.1 thou/uL (0.0-0.2); ABSOLUTE EOSINOPHILS 0.1 thou/uL (0.0-0.7); ABSOLUTE LYMPHOCYTES 0.9 thou/uL (0.8-5.3); ABSOLUTE MONOCYTES 0.5 thou/uL (0.0-1.2); ABSOLUTE NEUTROPHILS 7.4 thou/uL (1.6-8.1); BASOPHILS 0.7 %; EOSINOPHILS 1.5 %; HEMATOCRIT 31.6 % (37.0-47.0); HEMOGLOBIN 10.3 gm/dL (12.0-15.0); LYMPHOCYTES 9.5 %; MCH 25.3 pg (26.0-34.0); MCHC 32.6 g/dL (28.0-37.0); MCV 77.5 fL (80.0-100.0); MONOCYTES 5.8 %; MPV 6.7 fl. (7.2-11.1); NUCLEATED RBCS 0 /100WBC; PLATELET COUNT* 392 thou/uL (150-400); POLYS 82.5 %; RBC 4.07 mil/uL (4.20-5.00); RDW-CV 17.3 % (10.5-14.5)
[2019-04-14 20:59] LABS: CALCIUM 7.9 mg/dL (8.5-10.1); CREATININE 0.6 mg/dL (0.6-1.3)
[2019-04-14 21:02] LABS: INR 1.1; PROTIME 11.7 Seconds (9.20-11.50)
[2019-04-14 21:10] LABS: ALBUMIN 2.9 g/dL (3.4-5.0); TOTAL BILIRUBIN 0.3 mg/dL (<0.1-1.0); TOTAL PROTEIN 6.3 g/dL (6.4-8.2)
[2019-04-14 21:11] LABS: POTASSIUM 2.9 mmol/L (3.5-5.1)
[2019-04-14 23:45] VITALS: BP 145/85
[2019-04-15] VITALS (7 sets, daily range): BP systolic 139–164; BP diastolic 66–85
[2019-04-15] MEDS ORDERED: CHOLESTEROL MEDICATI (03:12)
--- NOTE | 2019-04-15 07:10 | NUR ---
REPORT RECIEVED FROM ER. PT ORIENTED TO ROOM, CALL LIGHT SHOWN, FALL AGREEMENT WENT OVER, PT STATED UNDERSTANDING. ADMISSION DOCUMENTED. PT HAS SEVERAL WOUNDS DOCUMENTED, PICS TAKE. PT HAD WOUND VAC NOT ATTACHED TO VAC, PT STATES THAT THE WOUND VAC AT 1300 AND SHE HAS HAD IT DETACHED SINCE. WOUND VAC REMOVED, PICS TAKEN, AND CHANGED TO WET TO DRY DRESSING. ELECTROLTES REPLACED PER E-MAR. WILL CONTINUE WITH PLAN OF CARE.
[2019-04-15 10:01] LABS: % SATURATION 3 % (20-39); IRON 11 ug/dL (50-175)
--- NOTE | 2019-04-15 15:08 | EKG ---
[place] [address] ELECTROCARDIOGRAM REPORT Name: MICKEY COLLADO Room: [address] IN ..#: [id number] Admission: 04/14/19 Attend Phys: Gustavo Shay, Discharge: Date of : 52 Date of Service: 04/14/191954 Report #: [id number] THIS REPORT FOR: //name// [facility] ED Test Date: 2019-04-14 Test Time: 19:55:29 Pat Name: MICKEY HEAVEN Department: Room: [facility] Gender: F Vp Product: MADHU : 1950 Requested By: Yossi Ibrahim Order Number: [id number] MD: Yassine Acuna Measurements Intervals [place] Rate: 91 P: 50 MS: 129 QRS: 111 QRSD: 141 T: -2 QT: 423 QTc: 521 Interpretive Statements Sinus rhythm Atrial premature complexes in couplets RBBB and LPFB Compared to ECG 03/08/2019 16:52:48 Atrial premature complex(es) now present Left posterior fascicular block now present Right bundle-branch block now present Sinus tachycardia no longer present Short MS interval no longer present Ventricular premature complex(es) no longer present Right-axis deviation no longer present T-wave abnormality no longer present Electronically Signed On 04-15-2019 15:07:08 DISCHARGE COORDINATOR by Yassine Acuna [email or web address] <ELECTRONICALLY SIGNED> By: Josué Acuna MD, [facility] 04/15/19 1507 [id number] Josué Acuna MD, [facility] /EPI
[2019-04-16 03:30] VITALS: BP 148/69
--- NOTE | 2019-04-16 05:56 | NUR ---
ASSUMED CARE OF PT AFTER REPORT AT 1930. PT A&OX4. VSS. PHYSICAL ASSESSMENT COMPLETED AND CHARTED. PT ON O2 AT 2.5L NC. PT TRACING SR/PAC/PVC ON TELE. PT UPSTANDBY TO BSC. PT COMPLAINED OF LEFT FOOT PAIN-MEDS GIVEN PER APR. INSTRUCTED NPO POST MIDNIGHT FOR STRESS TEST TODAY. COMMUNICATES UNDERSTANDING. PT ABLE TO SLEEP WELL ON BED. FALL PRECAUTIONS IN PLACE. CALL LIGHT WITHIN REACH.
[2019-04-16 06:29] LABS: CALCIUM 8.1 mg/dL (8.5-10.1); CREATININE 0.8 mg/dL (0.6-1.3); MAGNESIUM 1.7 mg/dL (1.8-2.4); POTASSIUM 3.6 mmol/L (3.5-5.1)
[2019-04-16 08:00] VITALS: BP 165/76
[2019-04-16 12:00] VITALS: BP 181/96
--- NOTE | 2019-04-16 15:35 | NUR ---
Pt out of the room at stress test, will f/u later
--- NOTE | 2019-04-16 15:43 | NUR ---
cm attempted assessment. pt not in her room.
[2019-04-16 16:00] VITALS: BP 129/83
[2019-04-16 20:00] VITALS: BP 132/62
--- NOTE | 2019-04-16 20:51 | NUR ---
PT RESTING AT THIS TIME,CLWR. PT IS RESTLESS, HAS COMPLAINED OF PAIN TO BLE THAT IS MANAGED WITH PO TRAMADOL. PT HAD PERIOD OF N/V THAT BEGIN DIRECTLY BEFORE TRANSFER TO [place] FOR STRESS TEST. ORDER ABTAINED FOR IV ZOFRAN AND SINCE ADMINISTRATION PT HAS REPORTED RELIEF. UPON MORNING VS PT FOUND WITH O2 ON HEAD LIKE A HEADBAND AND O2 SAT BELOW 85%. NC REPLACED AND RUNNING AT 3L. PT O2 SAT 95%. SR ON MONITOR. PT IS NON COMPLAINT WITH FALL PRECAUTIONS,REPORTS THAT BECAUSE OF DIURESING PT DOES NOT WANT ALARM ON SO SHE CAN QU[place] [facility] ABRASIONS TO RUE CLEANSED AND BANDAGED WITH [employer]. BLE DRESSINGS CDI. WCTM
[2019-04-17] VITALS (7 sets, daily range): BP systolic 124–167; BP diastolic 62–109
--- NOTE | 2019-04-17 05:05 | NUR ---
PT ALERT ORIENTED. UP WITH STD BY ASSIST. BED ALARM ON. PT DOES NOT WANT TO BE FALL RISK. PT TEACHING RE IMPORTANCE OF WAITING FOR NURSE ASSIST. TELEMETRY SHOWS SR. DEYA FOOT DRSGS ON. PT REMOVED ARM DRSGS AND PICKS AT WOUNDS. TRAMADOL GIVEN FOR FOOT PAIN. WCTM
[2019-04-17 07:00] LABS: HEMATOCRIT 34.6 % (37.0-47.0); HEMOGLOBIN 11.2 gm/dL (12.0-15.0); MCH 24.9 pg (26.0-34.0); MCHC 32.5 g/dL (28.0-37.0); MCV 76.7 fL (80.0-100.0); MPV 6.7 fl. (7.2-11.1); RBC 4.51 mil/uL (4.20-5.00); RDW-CV 17.3 % (10.5-14.5); WBC 9.8 thou/uL (4.0-11.0)
[2019-04-17 07:30] LABS: CALCIUM 8.3 mg/dL (8.5-10.1); CREATININE 0.9 mg/dL (0.6-1.3); POTASSIUM 3.4 mmol/L (3.5-5.1)
--- NOTE | 2019-04-17 11:08 | NUR ---
Pt is A&O. Resides at home alone. Pt states [facility] and [facility] here on 04/14. Pt is current with [facility] and wants to resume HH at [facility]. Pt states that she has a YEHUDA caregiver through [employer], 6 days/week for 3 hrs/day. Pt is independent with ADLs. Pt has a walker and wc at home. No home o2. Hx of SNF at [facility]. Goal is home at [facility]. CM to fax orders to [facility] at [facility]. Following. [facility] p:[phone] f:[phone]
--- NOTE | 2019-04-17 11:30 | CARDNUC ---
[place] [address] CARDIAC NUCLEAR IMAGING REPORT Name: HEAVENMICKEY M Room: [address] IN [facility]#: [id number] Admission: 04/14/19 Attend Phys: Gustavo Shay, Discharge: Date of : 52 Date of Service: 04/17/19 1129 Report #: [id number] THIS REPORT FOR: cc: Claudia Mcconnell Maggie M. DO Liston,Rod Del Rio MD [facility] ~ APPROVED REPORT Imaging Protocol: Rest Tc-99m/Stress Tc-99m 1 day Study performed: 04/15/2019 14:08:00 Indication: Chest pain, Dyspnea Patient Location: In-Patient Room #: 201 Stress Tech: Melissa Mulligan Stress Nurse: Jenelle Glez RN NM Tech:PAULINA Allen Ht: 5 ft 3 in Wt: 171 lbs BSA: 1.81 m2 BMI: 30.28 Medical History Medical History: Angina, Arrhythmia, CHF, Diabetes, Fatigue, Former Smoker, RBBB, SOB, Stroke/TIA, Weakness, LPFB, Nausea, Hypokalemia, Lightheadedness, Arrhythmia, Diabetic Ulcers UE/LE, Left sided weakness, O2 NC 2L, Toe amputation. Medications: Insulin, Lasix, Home meds include Metformin. Allergies: Latex, Penicillins, Sulfa ABT. Cardiac Risk Factors: Age, Diabetes (insulin), SOB, Past Smoker, CVA, RBBB Previous Cardiac Procedures: None Pretest Chest Pain Characteristics: No chest pain Exercise History: Sedentary Physical Disabilities: Left sided weakness/CVA, LE ulcers, toe amputation. Meds Held (24 hrs): None Resting Data Rest SPECT myocardial perfusion imaging was performed in supine position 30 minutes following the intravenous injection of 11.5 mCi of Tc-99m Sestamibi. Time of rest injection: 1240 Date: 04/16/2019 The images were gated to evaluate regional wall motion and calculate left [place] [address] CARDIAC NUCLEAR IMAGING REPORT Name: MICKEY COLLADO Room: [address]#: [id number] Admission: 04/14/19 Attend Phys: Gustavo Shay, Discharge: Date of : 52 Date of Service: 04/17/19 1129 Report #: [id number] Administration Route: IV Administration Site: Left AC Pharmacologic Stress Pharmacologic stress test was performed by injecting Regadenoson 0.4 mg IV push over 10-15 seconds immediately followed by the intravenous injection of 34.5 mCi of Tc-99m Sestamibi. Time of stress injection: 1450 Date: 04/16/2019 Administration Route: IV Administration Site: Left AC Gated Stress SPECT was performed 40 minutes after stress injection. The images were gated to evaluate regional wall motion and calculate left ventricular ejection fraction. Stress only was performed in the Supine position. Stress Test Details Stress Test: Pharmacologic stress testing performed using 0.4 mg of regadenoson per 5 mL given IV over 10 seconds. Reason for pharmacologic stress test: Left sided weakness, Toe amputation, LE unlcers.. HR Max Heart Rate (APMHR): 153 bpm Resting HR: 81 bpm Target HR (85% APMHR): 130 bpm Max HR Achieved: 118 bpm % of APMHR: 77 Recovery HR: 98 bpm BP Resting BP: 126/83 mmHg Max BP: 230/90 mmHg Recovery BP: 139/79 mmHg ECG Resting ECG: Sinus Rhythm Stress ECG: Sinus Tachycardia ST Change: None Arrhythmia: APC's Recovery ECG: Sinus Rhythm Recovery ST Change: None Recovery Arrhythmia: APC's Clinical Reason for Termination: Completed protocol Stress Symptoms: Nausea, Sweaty, shallow respirations. Exercise duration: 00 min 00 sec Exercise capacity: 1.00 [place] [address] CARDIAC NUCLEAR IMAGING REPORT Name: MICKEY COLLADO Room: [address]#: [id number] Admission: 04/14/19 Attend Phys: Gustavo Shay, Discharge: Date of : 52 Date of Service: 04/17/19 1129 Report #: [id number] The patient tolerated Lexiscan infusion without significant cardiac symptoms. Nurse Comments A 68 year old female inpatient presented for a sitting Lexiscan exhibiting nausea, LE ulcers, Toe amputation and left sided weakness r/t CVA. Patient reported recent chest pressure/pain with dyspnea prior to hospital admission. Test tolerated. Recovery unremarkable with PO caffeine, effective. Patient was escorted via wheelchair by staff to [facility] for imaging. Patient was stable and stated she felt better at end of recovery. Stress ECG Conclusion The baseline 12-lead EKG shows sinus rhythm without significant ST segment or T wave abnormality. EKGs obtained during and post Lexiscan stress show sinus rhythm and sinus tachycardia with no significant ST segment or T wave changes when compared to baseline. There were frequent premature atrial contractions noted. Study Quality Study: Good Study Data At rest, the left ventricular ejection fraction was 52%.. Post stress, the left ventricular ejection was 71%.. TID = 0.90. Perfusion Perfusion images obtained at rest and post Lexiscan stress show relatively uniform uptake of the radioisotope throughout the myocardium. No specific defects were identified. Wall Motion LV systolic function appears normal without obvious wall motion abnormality. Nuclear Conclusion ECG Findings: negative for ischemia Clinical Findings: negative for ischemia Nuclear Findings: negative for ischemia Exercise Capacity: not assessed Left Ventricular Function: normal Risk Study: low Myocardial perfusion images show no defect to suggest infarct or ischemia. Left ventricular systolic function appears normal on gated studies. This [place] [address] CARDIAC NUCLEAR IMAGING REPORT Name: MICKEY COLLADO Room: [address] [place] ..#: [id number] Admission: 04/14/19 Attend Phys: Gustavo Shay, Discharge: Date of : 52 Date of Service: 04/17/19 1129 Report #: [id number] <Conclusion> The baseline 12-lead EKG shows sinus rhythm without significant ST segment or T wave abnormality. EKGs obtained during and post Lexiscan stress show sinus rhythm and sinus tachycardia with no significant ST segment or T wave changes when compared to baseline. There were frequent premature atrial contractions noted. <ELECTRONICALLY SIGNED> By: Rod Ta MD, FACC 04/17/19 1129 1129 1129 Rod Ta MD, FACC /INF
--- NOTE | 2019-04-17 13:28 | 2DMMODE ---
[place] [address] 2 D/M-MODE ECHOCARDIOGRAM Name: MICKEY COLLADO Room: [address] IN [facility]#: [id number] Admission: 04/14/19 Attend Phys: Gustavo Shay, Discharge: Date of : 52 Date of Service: 04/17/19 1327 Report #: [id number] THIS REPORT FOR: cc: Claudia Mcconnell Maggie M. DO Liston, Michael J. MD [facility] ~ APPROVED REPORT Study performed: 04/17/2019 09:26:27 EXAM: Comprehensive 2D, Doppler, and color-flow Echocardiogram Patient Location: In-Patient Room #: [facility] Status: routine BSA: 1.81 HR: 91 bpm BP: 167/87 mmHg Rhythm: NSR Other Information Study Quality: Good Indications Congestive Heart Failure 2D Dimensions IVSd: 12.52 (7-11mm) LVOT Diam: 19.64 (18-24mm) LVDd: 38.61 mm PWd: 8.01 (7-11mm) Ascending Ao: 34.87 (22-36mm) LVDs: 28.16 (25-40mm) Aortic Root: 32.82 mm Volumes Left Atrial Volume (Systole) LA ESV Index: 39.50 mL/m2 Aortic Valve AoV Peak Nathen.: 1.56 m/s AO Peak Gr.: 9.79 mmHg LVOT Max P.25 mmHg AO Mean Gr.: 5.08 mmHg LVOT Mean P.47 mmHg LVOT Max V: 1.15 m/s AO V2 VTI: 25.18 cm LVOT Mean V: 0.72 m/s WALT (VTI): 2.47 cm2 LVOT V1 VTI: 20.55 [place] [address] 2 D/M-MODE ECHOCARDIOGRAM Name: MICKEY COLLADO Room: [address] [place] ..#: [id number] Admission: 04/14/19 Attend Phys: Gustavo Shay, Discharge: Date of : 52 Date of Service: 04/17/19 1327 Report #: [id number] Mitral Valve E/A Ratio: 0.73 MV Decel. Time: 223.77 ms MV E Max Nathen.: 0.79 m/s MV PHT: 64.89 ms MVA (PHT): 3.39 cm2 TDI E/Lateral E': 13.17 E/Medial E': 13.17 Medial E' Nathen.: 0.06 m/s Lateral E' Nathen.: 0.06 m/s Pulmonary Valve PV Peak Nathen.: 0.96 m/s PV Peak Gr.: 3.71 mmHg Left Ventricle The left ventricle is normal size. There is normal LV segmental wall motion. There is normal left ventricular wall thickness. Left ventricular systolic function is normal. LVEF is 60-65%. Grade I - abnormal relaxation pattern. Right Ventricle The right ventricle is normal size. The right ventricular systolic function is normal. Atria Left atrium is mildly dilated. The right atrium size is normal. Aortic Valve Mild aortic valve sclerosis. Trace aortic regurgitation. There is no aortic valvular stenosis. Mitral Valve There is mitral annular calcification. Trace mitral regurgitation. No evidence of mitral valve stenosis. Tricuspid Valve The tricuspid valve is normal in structure. Trace tricuspid regurgitation. Unable to assess PA pressure. Pulmonic Valve The pulmonary valve is normal in structure. There is no pulmonic valvular regurgitation[place] [address] 2 D/M-MODE ECHOCARDIOGRAM Name: MICKEY COLLADO Room: [address]#: [id number] Admission: 04/14/19 Attend Phys: Gustavo Shay, Discharge: Date of : 52 Date of Service: 04/17/19 1327 Report #: [id number] The aortic root is normal in size. IVC is normal in size and collapses >50% with inspiration. Pericardium There is no pericardial effusion. <Conclusion> The left ventricle is normal size. There is normal left ventricular wall thickness. Left ventricular systolic function is normal. LVEF is 60-65%. Grade I - abnormal relaxation pattern. Left atrium is mildly dilated. Mild aortic valve sclerosis. There is no aortic valvular stenosis. Trace mitral regurgitation. Trace tricuspid regurgitation. IVC is normal in size and collapses >50% with inspiration. <ELECTRONICALLY SIGNED> By: Rod Ta MD, FACC 04/17/19 1327 132 132 Rod Ta MD, FACC /INF
--- NOTE | 2019-04-17 14:52 | NUR ---
WOUND NURSE: PATIENT SEEN TO ADDRESS WOUNDS ON 3 EXTREMITIES: RIGHT UPPER ARM WITH 3 WOUND OPENINS PRESENT SHALLOW LESIONS PROX TO DISTAL MEASUREMENTS FOLLOWS 0.6 X 0.6 X 0.1 CM, 1.8 X 1.0 X 0.1 CM, 0.6 X 0.6 X 0.1 CM. THESE ARE SHALOW CIRCIFORM LESIONS CONTAINING PINK NONGRANULATING TISSUE IN THE WOUND BEDS AND DRAINING SCANT AMOUNT OF SEROUS DRANAGE. EACH PERIWOUND WITH PINK SCAR TISSUE FORMATION. CLEANSED WITH SOAP AND WATER, RINSED, THEN PATTED DRY. APPLIED XEROFORM GAUZE UNDER KERLEX ROLL GAUZE, THEN SECURED WITH TAPE. RIGHT LOWER LEG WITH MULTIPLE LESIONS ALSO: ONE CLUSTER ALONG THE TIBIAL ASPECT CONTAINS AT LEAST 3 WOUND OPENINGS AND MEASURES A TOTAL AREA O 18.0 X 4.5 X 0.1 CM AND IS >75% INACT SKIN AND <25% SHALLOW WOUND. EACH WOUND BED PRESENTS WITH PINK NONGRANULATING TISSUE AND SCANT SEROUS DRAINAGE. THE RIGHT ACHILLES AREA PRESENTS A LINEAR LESION MEASURING 4.5 X 1.0 X 0.1 CM. PARTS OF THE PERIWOUND TISSUE CONTAINS LIGHT GOLD CRUSTS. THERE IS SCANT SEROUS DRAINAGE FROM THIS WOUND ALSO. ALL LESIONS WERE CLEANSED WITH SOAP AND WATER, RINSED, THEN PATTED DRY. APPLIED XEROFORM GAUZE, THEN WRAPPED WITH KERLEX ROLL GAUZE, UNDER TOMAS WRAP. LEFT LOWER LEG ALSO CONTANS MULTIPLE WOUNDS ON ANTEROLATERAL ASPECT MEASURING FOLLOWS: 0.8 X 0.8 X 0.1 CM; 0.8 X 1.2 X 0.1 CM; AND TIBIAL ASPECT MEASURING 0.7 X 0.6 X 0.1 CM; 0.8 X 0.4 X 0.1 CM. ALL ARE SHALLOW LESIONS WITH PINK NONGRANULATING TISSUE IN [facility] WOUND BEDS. THERE IS SCANT SEROUS DRAINAGE NOTED WITH THESE WOUNS ALL EXTEMITIES ARE SCARRED. 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 PATIENT HAS A POSTOPERATIVE WOUND ON [facility] LEFT FOOT AND MEASURED THE DORSAL AND PLANTAR ASPECT SEPERATELY. THE DORSAL INCISION MEASURES 9.5 X 0.4 X 0.1 CM, CONTAINS FEW DRIED SEROUS CRUSTS AND INTACT SUTURES AND SMALL AMOUNT OF SEROUS DRAINAGE NOTED. THE PLANTAR ASPECT MEASURES 7.5 X 2.5 X 0.9 CM AND PRESENTS WITH 25% SLOUGH AND 75% PINK TO RED GRANULATION TISSUE. THIS HAS A MODERATE AMOUT OF SEROUSANGUINOUS DRAINAGE PRESENT. LEFT FOOT WAS CLEANSED WITH SOAP AND WATER, RINSED WITH WATER, THEN PATTED DRY. APPLIED AQUACEL AG UNDER ABD, THEN WRAPPED WITH KERLEX UNDER TOMAS WRAP. ABOVE TOLERATED WELL BY THE PATIENT AND WITHOUT REPORTS OF PAIN. PATIENT INSTRUCTED ON KEEPING LESIONS COVERED AND NO LONGER SCRATCHING HERSELF TO THE POINT OF CAUSING WOUNDS. PATIENT STATES SHE UNDERSTANDS AND WILL TRY NOT TO SCRATCH HERSELF ANYMORE.
[2019-04-18 00:14] VITALS: BP 138/59
[2019-04-18 04:44] VITALS: BP 128/83
--- NOTE | 2019-04-18 07:11 | NUR ---
PT A+O X 4. PT TRACING SA ON MONITOR. DR RODRIGUEZ CHANGED L FOOT DRESSING LAST NIGHT. DR REPORTED "FOOT IS HEALING WELL." PT OFF AND ON COMPLIANT WITH O2. TRAMADOL EFFECTIVE FOR PAIN. CALL LIGHT IN REACH. HOURLY ROUNDING FOR SAFETY.
[2019-04-18 08:00] VITALS: BP 164/86
[2019-04-18 09:41] LABS: MAGNESIUM 1.6 mg/dL (1.8-2.4); PHOSPHORUS* 3.6 mg/dL (2.5-4.9); POTASSIUM 3.3 mmol/L (3.5-5.1)
[2019-04-18 11:36] VITALS: BP 170/75
[2019-04-18] MEDS ORDERED: HYDROCHLOROTHIA25 M2 PO (12:33)
[2019-04-18] MEDS ORDERED: LIPITOR40 MG PO (12:36)
[2019-04-18] MEDS ORDERED: COZAAR 25 MG TA25 M1 PO (12:38)
--- NOTE | 2019-04-18 17:08 | NUR ---
ASSUMED PT CARE AT 0700. PT VOICED NO CONCERNS THIS SHIFT. HOURLY ROUNDING COMPLETED. 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 CALL LIGHT WITHIN REACH. DISCHARGE INSTRUCTIONS REVIEWED WITH PATIENT. PT VOICED NO CONCERNS/QUESTIONS. SPOKE WITH DPOA REGARDING DISCHARGE AND AGREEABLE. IV DISCONTINUED AND CATHETER INTACT. PT DISCHARGED AT 1640.
== END 2019-04-18 17:10 | disposition home health service (06) | DRG 291 ==
LOC: M.ERS 19:45 → M.TBA-ER 22:06 → M.2W 22:06
PROVIDERS: Emergency Medicine Emergency Medical Services; Family Medicine; Internal Medicine; ADMIT Internal Medicine
DX: I11.0 Hypertensive heart disease with heart failure (principal); E43 Unspecified severe protein-calorie malnutrition; J96.01 Acute respiratory failure with hypoxia; I50.33 Acute on chronic diastolic (congestive) heart failure; E78.00 Pure hypercholesterolemia, unspecified; E03.9 Hypothyroidism, unspecified; E78.5 Hyperlipidemia, unspecified; E11.51 Type 2 diabetes mellitus with diabetic peripheral angiopathy without gangrene; T14.8XXA Other injury of unspecified body region, initial encounter; D50.9 Iron deficiency anemia, unspecified; E11.42 Type 2 diabetes mellitus with diabetic polyneuropathy; Z86.73 Personal history of transient ischemic attack (TIA), and cerebral infarction without residual deficits; Z68.29 Body mass index [BMI] 29.0-29.9, adult; Z98.42 Cataract extraction status, left eye; Z98.41 Cataract extraction status, right eye; Z89.422 Acquired absence of other left toe(s); Z79.84 Long term (current) use of oral hypoglycemic drugs; Z79.899 Other long term (current) drug therapy; Z88.0 Allergy status to penicillin; Z88.2 Allergy status to sulfonamides; Z91.040 Latex allergy status; Z80.8 Family history of malignant neoplasm of other organs or systems; Z82.49 Family history of ischemic heart disease and other diseases of the circulatory system; X58.XXXA Exposure to other specified factors, initial encounter; Y93.89 Activity, other specified; Y92.89 Other specified places as the place of occurrence of the external cause; Y99.8 Other external cause status

== ENCOUNTER → 2019-05-09 | Outpatient (CLI) | payer OTHER, MEDICAID ==
[~2019-05-09] MED LIST changes: +CHOLESTEROL MEDICATI; +COZAAR 25 MG TA25 M1 PO; +HYDROCHLOROTHIA25 M2 PO; +LIPITOR40 MG PO
== END ==
LOC: M.WC 13:05
DX: E11.622 Type 2 diabetes mellitus with other skin ulcer (principal); L97.821 Non-pressure chronic ulcer of other part of left lower leg limited to breakdown of skin; E11.621 Type 2 diabetes mellitus with foot ulcer; L97.522 Non-pressure chronic ulcer of other part of left foot with fat layer exposed; L97.811 Non-pressure chronic ulcer of other part of right lower leg limited to breakdown of skin; E11.36 Type 2 diabetes mellitus with diabetic cataract; E11.51 Type 2 diabetes mellitus with diabetic peripheral angiopathy without gangrene; E11.42 Type 2 diabetes mellitus with diabetic polyneuropathy; I87.2 Venous insufficiency (chronic) (peripheral); I50.9 Heart failure, unspecified; Z87.891 Personal history of nicotine dependence; Z86.73 Personal history of transient ischemic attack (TIA), and cerebral infarction without residual deficits; Z79.4 Long term (current) use of insulin

== ENCOUNTER → 2019-05-16 | Outpatient (CLI) | payer OTHER, MEDICAID | LOC: M.WC 04:16 | DX: E11.622 Type 2 diabetes mellitus with other skin ulcer (principal); L97.821 Non-pressure chronic ulcer of other part of left lower leg limited to breakdown of skin; L97.811 Non-pressure chronic ulcer of other part of right lower leg limited to breakdown of skin; E11.621 Type 2 diabetes mellitus with foot ulcer; L97.521 Non-pressure chronic ulcer of other part of left foot limited to breakdown of skin; E11.42 Type 2 diabetes mellitus with diabetic polyneuropathy; E11.36 Type 2 diabetes mellitus with diabetic cataract; E11.51 Type 2 diabetes mellitus with diabetic peripheral angiopathy without gangrene; I50.9 Heart failure, unspecified; I87.2 Venous insufficiency (chronic) (peripheral); Z79.4 Long term (current) use of insulin; Z87.891 Personal history of nicotine dependence; Z86.73 Personal history of transient ischemic attack (TIA), and cerebral infarction without residual deficits ==

== ENCOUNTER → 2019-05-30 | Outpatient (CLI) | payer OTHER, MEDICAID | LOC: M.WC 05:01 | DX: E11.621 Type 2 diabetes mellitus with foot ulcer (principal); L97.522 Non-pressure chronic ulcer of other part of left foot with fat layer exposed; E11.622 Type 2 diabetes mellitus with other skin ulcer; L97.811 Non-pressure chronic ulcer of other part of right lower leg limited to breakdown of skin; E11.40 Type 2 diabetes mellitus with diabetic neuropathy, unspecified; E11.36 Type 2 diabetes mellitus with diabetic cataract; E11.51 Type 2 diabetes mellitus with diabetic peripheral angiopathy without gangrene; I50.9 Heart failure, unspecified; I87.2 Venous insufficiency (chronic) (peripheral); Z87.891 Personal history of nicotine dependence; Z86.73 Personal history of transient ischemic attack (TIA), and cerebral infarction without residual deficits ==

== ENCOUNTER → 2019-06-13 | Outpatient (CLI) | payer OTHER, MEDICAID | LOC: M.WC 04:57 | DX: E11.621 Type 2 diabetes mellitus with foot ulcer (principal); L97.522 Non-pressure chronic ulcer of other part of left foot with fat layer exposed; E11.622 Type 2 diabetes mellitus with other skin ulcer; L97.811 Non-pressure chronic ulcer of other part of right lower leg limited to breakdown of skin; E11.36 Type 2 diabetes mellitus with diabetic cataract; E11.51 Type 2 diabetes mellitus with diabetic peripheral angiopathy without gangrene; E11.40 Type 2 diabetes mellitus with diabetic neuropathy, unspecified; I50.9 Heart failure, unspecified; I87.2 Venous insufficiency (chronic) (peripheral); Z87.891 Personal history of nicotine dependence; Z86.73 Personal history of transient ischemic attack (TIA), and cerebral infarction without residual deficits ==

== ENCOUNTER → 2019-06-27 | Outpatient (CLI) | payer OTHER, MEDICAID | LOC: M.WC 03:16 | DX: T81.89XD Other complications of procedures, not elsewhere classified, subsequent encounter (principal); E11.621 Type 2 diabetes mellitus with foot ulcer; L97.522 Non-pressure chronic ulcer of other part of left foot with fat layer exposed; E11.622 Type 2 diabetes mellitus with other skin ulcer; L97.811 Non-pressure chronic ulcer of other part of right lower leg limited to breakdown of skin; E11.40 Type 2 diabetes mellitus with diabetic neuropathy, unspecified; E11.36 Type 2 diabetes mellitus with diabetic cataract; E11.51 Type 2 diabetes mellitus with diabetic peripheral angiopathy without gangrene; I87.2 Venous insufficiency (chronic) (peripheral); I50.9 Heart failure, unspecified; Z87.891 Personal history of nicotine dependence; Z86.73 Personal history of transient ischemic attack (TIA), and cerebral infarction without residual deficits; Y83.8 Other surgical procedures as the cause of abnormal reaction of the patient, or of later complication, without mention of misadventure at the time of the procedure ==

== ENCOUNTER → 2019-07-11 | Outpatient (CLI) | payer OTHER, MEDICAID | LOC: M.WC 02:40 | DX: E11.621 Type 2 diabetes mellitus with foot ulcer (principal); L97.522 Non-pressure chronic ulcer of other part of left foot with fat layer exposed; E11.622 Type 2 diabetes mellitus with other skin ulcer; L97.811 Non-pressure chronic ulcer of other part of right lower leg limited to breakdown of skin; S80.212A Abrasion, left knee, initial encounter; S80.211A Abrasion, right knee, initial encounter; E11.36 Type 2 diabetes mellitus with diabetic cataract; E11.51 Type 2 diabetes mellitus with diabetic peripheral angiopathy without gangrene; E11.40 Type 2 diabetes mellitus with diabetic neuropathy, unspecified; I50.9 Heart failure, unspecified; I87.2 Venous insufficiency (chronic) (peripheral); Z87.891 Personal history of nicotine dependence; Z86.73 Personal history of transient ischemic attack (TIA), and cerebral infarction without residual deficits; X58.XXXA Exposure to other specified factors, initial encounter; Y93.89 Activity, other specified; Y92.89 Other specified places as the place of occurrence of the external cause; Y99.8 Other external cause status ==

== ENCOUNTER → 2019-07-25 | Outpatient (CLI) | payer OTHER, MEDICAID | LOC: M.WC 04:09 | DX: E11.621 Type 2 diabetes mellitus with foot ulcer (principal); L97.522 Non-pressure chronic ulcer of other part of left foot with fat layer exposed; E11.622 Type 2 diabetes mellitus with other skin ulcer; L97.811 Non-pressure chronic ulcer of other part of right lower leg limited to breakdown of skin; S80.212D Abrasion, left knee, subsequent encounter; S80.211D Abrasion, right knee, subsequent encounter; I87.2 Venous insufficiency (chronic) (peripheral); E11.40 Type 2 diabetes mellitus with diabetic neuropathy, unspecified; E11.51 Type 2 diabetes mellitus with diabetic peripheral angiopathy without gangrene; L84 Corns and callosities; E11.36 Type 2 diabetes mellitus with diabetic cataract; I50.9 Heart failure, unspecified; Z86.73 Personal history of transient ischemic attack (TIA), and cerebral infarction without residual deficits; Z87.891 Personal history of nicotine dependence; Z79.84 Long term (current) use of oral hypoglycemic drugs; X58.XXXD Exposure to other specified factors, subsequent encounter ==

== ENCOUNTER → 2019-08-08 | Outpatient (CLI) | payer OTHER, MEDICAID | LOC: M.WC 04:18 | PROVIDERS: ATTEND Podiatrist Foot & Ankle Surgery | DX: E11.621 Type 2 diabetes mellitus with foot ulcer (principal); L97.521 Non-pressure chronic ulcer of other part of left foot limited to breakdown of skin; E11.622 Type 2 diabetes mellitus with other skin ulcer; L97.511 Non-pressure chronic ulcer of other part of right foot limited to breakdown of skin; S80.212D Abrasion, left knee, subsequent encounter; S80.211D Abrasion, right knee, subsequent encounter; E11.36 Type 2 diabetes mellitus with diabetic cataract; E11.51 Type 2 diabetes mellitus with diabetic peripheral angiopathy without gangrene; E11.40 Type 2 diabetes mellitus with diabetic neuropathy, unspecified; I87.2 Venous insufficiency (chronic) (peripheral); I50.9 Heart failure, unspecified; Z87.891 Personal history of nicotine dependence; Z86.73 Personal history of transient ischemic attack (TIA), and cerebral infarction without residual deficits; X58.XXXD Exposure to other specified factors, subsequent encounter ==

== ENCOUNTER → 2020-10-10 | Outpatient (CLI) | payer OTHER, MEDICAID | LOC: M.WC 07:59 | PROVIDERS: ATTEND Family Medicine | DX: E11.622 Type 2 diabetes mellitus with other skin ulcer (principal); I70.238 Atherosclerosis of native arteries of right leg with ulceration of other part of lower leg; L97.812 Non-pressure chronic ulcer of other part of right lower leg with fat layer exposed; I70.248 Atherosclerosis of native arteries of left leg with ulceration of other part of lower leg; L97.822 Non-pressure chronic ulcer of other part of left lower leg with fat layer exposed; I70.233 Atherosclerosis of native arteries of right leg with ulceration of ankle; L97.312 Non-pressure chronic ulcer of right ankle with fat layer exposed; E11.621 Type 2 diabetes mellitus with foot ulcer; I70.245 Atherosclerosis of native arteries of left leg with ulceration of other part of foot; L97.522 Non-pressure chronic ulcer of other part of left foot with fat layer exposed; L84 Corns and callosities; E11.36 Type 2 diabetes mellitus with diabetic cataract; E11.51 Type 2 diabetes mellitus with diabetic peripheral angiopathy without gangrene; E11.40 Type 2 diabetes mellitus with diabetic neuropathy, unspecified; E03.9 Hypothyroidism, unspecified; I11.0 Hypertensive heart disease with heart failure; I50.9 Heart failure, unspecified; Z87.891 Personal history of nicotine dependence; Z86.73 Personal history of transient ischemic attack (TIA), and cerebral infarction without residual deficits; Z79.84 Long term (current) use of oral hypoglycemic drugs ==

== ENCOUNTER → 2020-10-17 | Outpatient (CLI) | payer OTHER, MEDICAID | LOC: M.WC 07:31 | PROVIDERS: ATTEND Family Medicine | DX: E11.621 Type 2 diabetes mellitus with foot ulcer (principal); I70.245 Atherosclerosis of native arteries of left leg with ulceration of other part of foot; L97.522 Non-pressure chronic ulcer of other part of left foot with fat layer exposed; E11.622 Type 2 diabetes mellitus with other skin ulcer; I70.238 Atherosclerosis of native arteries of right leg with ulceration of other part of lower leg; I70.248 Atherosclerosis of native arteries of left leg with ulceration of other part of lower leg; L97.811 Non-pressure chronic ulcer of other part of right lower leg limited to breakdown of skin; L97.821 Non-pressure chronic ulcer of other part of left lower leg limited to breakdown of skin; I70.233 Atherosclerosis of native arteries of right leg with ulceration of ankle; L97.311 Non-pressure chronic ulcer of right ankle limited to breakdown of skin; E11.51 Type 2 diabetes mellitus with diabetic peripheral angiopathy without gangrene; E11.40 Type 2 diabetes mellitus with diabetic neuropathy, unspecified; E11.36 Type 2 diabetes mellitus with diabetic cataract; H26.9 Unspecified cataract; L84 Corns and callosities; I11.0 Hypertensive heart disease with heart failure; I50.9 Heart failure, unspecified; E03.9 Hypothyroidism, unspecified; Z86.73 Personal history of transient ischemic attack (TIA), and cerebral infarction without residual deficits; Z87.891 Personal history of nicotine dependence; Z79.4 Long term (current) use of insulin; Z79.899 Other long term (current) drug therapy ==

== ENCOUNTER → 2020-10-24 | Outpatient (CLI) | payer OTHER, MEDICAID | LOC: M.WC 08:00 | PROVIDERS: ATTEND Family Medicine | DX: E11.622 Type 2 diabetes mellitus with other skin ulcer (principal); I70.238 Atherosclerosis of native arteries of right leg with ulceration of other part of lower leg; L97.818 Non-pressure chronic ulcer of other part of right lower leg with other specified severity; I70.248 Atherosclerosis of native arteries of left leg with ulceration of other part of lower leg; L97.828 Non-pressure chronic ulcer of other part of left lower leg with other specified severity; I70.233 Atherosclerosis of native arteries of right leg with ulceration of ankle; L97.311 Non-pressure chronic ulcer of right ankle limited to breakdown of skin; E11.621 Type 2 diabetes mellitus with foot ulcer; I70.245 Atherosclerosis of native arteries of left leg with ulceration of other part of foot; L97.522 Non-pressure chronic ulcer of other part of left foot with fat layer exposed; L84 Corns and callosities; E11.36 Type 2 diabetes mellitus with diabetic cataract; E11.51 Type 2 diabetes mellitus with diabetic peripheral angiopathy without gangrene; E11.40 Type 2 diabetes mellitus with diabetic neuropathy, unspecified; E03.9 Hypothyroidism, unspecified; I11.0 Hypertensive heart disease with heart failure; I50.9 Heart failure, unspecified; Z86.73 Personal history of transient ischemic attack (TIA), and cerebral infarction without residual deficits; Z87.891 Personal history of nicotine dependence ==

== ENCOUNTER → 2020-10-31 | Outpatient (CLI) | payer OTHER, MEDICAID | LOC: M.WC 07:44 | PROVIDERS: ATTEND Family Medicine | DX: E11.621 Type 2 diabetes mellitus with foot ulcer (principal); I70.245 Atherosclerosis of native arteries of left leg with ulceration of other part of foot; L97.522 Non-pressure chronic ulcer of other part of left foot with fat layer exposed; E11.622 Type 2 diabetes mellitus with other skin ulcer; I70.233 Atherosclerosis of native arteries of right leg with ulceration of ankle; L97.311 Non-pressure chronic ulcer of right ankle limited to breakdown of skin; I70.238 Atherosclerosis of native arteries of right leg with ulceration of other part of lower leg; L97.818 Non-pressure chronic ulcer of other part of right lower leg with other specified severity; I70.248 Atherosclerosis of native arteries of left leg with ulceration of other part of lower leg; L97.828 Non-pressure chronic ulcer of other part of left lower leg with other specified severity; L84 Corns and callosities; E11.36 Type 2 diabetes mellitus with diabetic cataract; E11.51 Type 2 diabetes mellitus with diabetic peripheral angiopathy without gangrene; E11.40 Type 2 diabetes mellitus with diabetic neuropathy, unspecified; E03.9 Hypothyroidism, unspecified; I11.0 Hypertensive heart disease with heart failure; I50.9 Heart failure, unspecified; Z86.73 Personal history of transient ischemic attack (TIA), and cerebral infarction without residual deficits; Z87.891 Personal history of nicotine dependence ==

== ENCOUNTER → 2020-11-06 | Outpatient (CLI) | payer OTHER, MEDICAID | LOC: M.WC 08:47 | PROVIDERS: ATTEND Family Medicine | DX: E11.621 Type 2 diabetes mellitus with foot ulcer (principal); I70.245 Atherosclerosis of native arteries of left leg with ulceration of other part of foot; L97.522 Non-pressure chronic ulcer of other part of left foot with fat layer exposed; E11.622 Type 2 diabetes mellitus with other skin ulcer; I70.233 Atherosclerosis of native arteries of right leg with ulceration of ankle; L97.311 Non-pressure chronic ulcer of right ankle limited to breakdown of skin; I70.238 Atherosclerosis of native arteries of right leg with ulceration of other part of lower leg; L97.818 Non-pressure chronic ulcer of other part of right lower leg with other specified severity; I70.248 Atherosclerosis of native arteries of left leg with ulceration of other part of lower leg; L97.828 Non-pressure chronic ulcer of other part of left lower leg with other specified severity; L84 Corns and callosities; E11.36 Type 2 diabetes mellitus with diabetic cataract; E11.51 Type 2 diabetes mellitus with diabetic peripheral angiopathy without gangrene; E11.40 Type 2 diabetes mellitus with diabetic neuropathy, unspecified; E03.9 Hypothyroidism, unspecified; I11.0 Hypertensive heart disease with heart failure; I50.9 Heart failure, unspecified; Z86.73 Personal history of transient ischemic attack (TIA), and cerebral infarction without residual deficits; Z87.891 Personal history of nicotine dependence ==

== ENCOUNTER → 2020-11-13 | Outpatient (CLI) | payer OTHER, MEDICAID | LOC: M.WC 08:40 | PROVIDERS: ATTEND Family Medicine | DX: E11.621 Type 2 diabetes mellitus with foot ulcer (principal); I70.245 Atherosclerosis of native arteries of left leg with ulceration of other part of foot; L97.522 Non-pressure chronic ulcer of other part of left foot with fat layer exposed; E11.622 Type 2 diabetes mellitus with other skin ulcer; I70.233 Atherosclerosis of native arteries of right leg with ulceration of ankle; L97.311 Non-pressure chronic ulcer of right ankle limited to breakdown of skin; I70.238 Atherosclerosis of native arteries of right leg with ulceration of other part of lower leg; L97.818 Non-pressure chronic ulcer of other part of right lower leg with other specified severity; I70.248 Atherosclerosis of native arteries of left leg with ulceration of other part of lower leg; L97.828 Non-pressure chronic ulcer of other part of left lower leg with other specified severity; L84 Corns and callosities; E11.36 Type 2 diabetes mellitus with diabetic cataract; H26.9 Unspecified cataract; E11.51 Type 2 diabetes mellitus with diabetic peripheral angiopathy without gangrene; E11.42 Type 2 diabetes mellitus with diabetic polyneuropathy; E03.9 Hypothyroidism, unspecified; I11.0 Hypertensive heart disease with heart failure; I50.9 Heart failure, unspecified; Z86.73 Personal history of transient ischemic attack (TIA), and cerebral infarction without residual deficits; Z87.891 Personal history of nicotine dependence ==

== ENCOUNTER → 2020-11-21 | Outpatient (CLI) | payer OTHER, MEDICAID | LOC: M.WC 08:00 | PROVIDERS: ATTEND Family Medicine | DX: E11.621 Type 2 diabetes mellitus with foot ulcer (principal); I70.245 Atherosclerosis of native arteries of left leg with ulceration of other part of foot; L97.522 Non-pressure chronic ulcer of other part of left foot with fat layer exposed; E11.622 Type 2 diabetes mellitus with other skin ulcer; I70.238 Atherosclerosis of native arteries of right leg with ulceration of other part of lower leg; L97.812 Non-pressure chronic ulcer of other part of right lower leg with fat layer exposed; I70.233 Atherosclerosis of native arteries of right leg with ulceration of ankle; L97.312 Non-pressure chronic ulcer of right ankle with fat layer exposed; L84 Corns and callosities; E11.42 Type 2 diabetes mellitus with diabetic polyneuropathy; E11.51 Type 2 diabetes mellitus with diabetic peripheral angiopathy without gangrene; E11.36 Type 2 diabetes mellitus with diabetic cataract; H26.9 Unspecified cataract; I11.0 Hypertensive heart disease with heart failure; I50.9 Heart failure, unspecified; E03.9 Hypothyroidism, unspecified; Z86.73 Personal history of transient ischemic attack (TIA), and cerebral infarction without residual deficits; Z87.891 Personal history of nicotine dependence; Z79.4 Long term (current) use of insulin; Z79.899 Other long term (current) drug therapy ==

== ENCOUNTER → 2020-12-04 | Outpatient (CLI) | payer OTHER, MEDICAID | LOC: M.WC 07:38 | PROVIDERS: ATTEND Family Medicine | DX: E11.621 Type 2 diabetes mellitus with foot ulcer (principal); I70.245 Atherosclerosis of native arteries of left leg with ulceration of other part of foot; L97.522 Non-pressure chronic ulcer of other part of left foot with fat layer exposed; E11.622 Type 2 diabetes mellitus with other skin ulcer; I70.233 Atherosclerosis of native arteries of right leg with ulceration of ankle; L97.312 Non-pressure chronic ulcer of right ankle with fat layer exposed; I70.248 Atherosclerosis of native arteries of left leg with ulceration of other part of lower leg; L97.822 Non-pressure chronic ulcer of other part of left lower leg with fat layer exposed; L84 Corns and callosities; E11.42 Type 2 diabetes mellitus with diabetic polyneuropathy; E11.51 Type 2 diabetes mellitus with diabetic peripheral angiopathy without gangrene; E11.36 Type 2 diabetes mellitus with diabetic cataract; H26.9 Unspecified cataract; I11.0 Hypertensive heart disease with heart failure; I50.9 Heart failure, unspecified; E03.9 Hypothyroidism, unspecified; Z86.73 Personal history of transient ischemic attack (TIA), and cerebral infarction without residual deficits; Z87.891 Personal history of nicotine dependence; Z79.4 Long term (current) use of insulin ==

== ENCOUNTER → 2020-12-11 | Outpatient (CLI) | payer OTHER, MEDICAID | LOC: M.WC 07:37 | PROVIDERS: ATTEND Family Medicine | DX: E11.621 Type 2 diabetes mellitus with foot ulcer (principal); I70.245 Atherosclerosis of native arteries of left leg with ulceration of other part of foot; L97.528 Non-pressure chronic ulcer of other part of left foot with other specified severity; E11.622 Type 2 diabetes mellitus with other skin ulcer; I70.238 Atherosclerosis of native arteries of right leg with ulceration of other part of lower leg; L97.811 Non-pressure chronic ulcer of other part of right lower leg limited to breakdown of skin; I70.248 Atherosclerosis of native arteries of left leg with ulceration of other part of lower leg; L97.828 Non-pressure chronic ulcer of other part of left lower leg with other specified severity; L84 Corns and callosities; E11.42 Type 2 diabetes mellitus with diabetic polyneuropathy; E11.51 Type 2 diabetes mellitus with diabetic peripheral angiopathy without gangrene; E11.36 Type 2 diabetes mellitus with diabetic cataract; H26.9 Unspecified cataract; I11.0 Hypertensive heart disease with heart failure; I50.9 Heart failure, unspecified; E03.9 Hypothyroidism, unspecified; Z86.73 Personal history of transient ischemic attack (TIA), and cerebral infarction without residual deficits; Z87.891 Personal history of nicotine dependence; Z79.4 Long term (current) use of insulin ==